=== PATIENT | male | born 1955 | race Caucasian/White ===

== ENCOUNTER 2021-03-30 01:09 | Inpatient (IN) ==
[2021-03-30] MEDS ORDERED: IBUPROFEN 600 MG TAB PO STA (01:21)
--- NOTE | 2021-03-30 01:21 | Emergency Department Note ---
Impression & Plan Closed hip fracture ADMIT ED Provider Note HPI: The patient is a 66-year-old male who presents the emergency department after mechanical fall. 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 States he fell directly on his right hip. Patient states he was able to get up and walk for several minutes afterwards but then developed worsening pain in his right hip and therefore contacted EMS for transport to the ED. on arrival to the ED the patient is alert and oriented, denies any head injuries, denies that he is on any blood thinners. He is limited range of motion at the right hip secondary to pain, denies any other focal complaint of pain. He is otherwise hemodynamically stable on arrival. ROS: -MSK: Right hip pain status post fall *10 point review systems was conducted and is otherwise negative unless stated above *Outpatient medications and allergy history reviewed PE: General: Alert, NAD HEENT: Normocephalic, atraumatic, trachea midline Eyes: Extraocular eye movement is intact, no scleral erythema Pulmonary: Clear to auscultation bilaterally, no wheezing Cardio: Regular rate and rhythm GI: Abdomen is soft, nontender : No suprapubic tenderness MSK: Limited range of motion at the right hip secondary to pain, there is a palpable dorsalis pedis pulse in the right lower extremity, range of motion is intact distally in the right foot Skin: No evidence of rash Neuro: Alert, baseline contracture of the right upper extremity, otherwise no focal deficits Psychiatric: Cooperative pvc monitor: - An order was placed for continuous cardiac monitoring - Patient was noted to be in sinus rhythm with rate of 75 EKG: Rate: 75 Rhythm: Normal sinus rhythm Intervals: Within normal limits ST changes: No ST elevation Time: 0204 Medical Decision Making: Patient presented to the emergency department after he fell this evening at work. X-ray imaging shows evidence of a right femoral neck fracture. Patient was given IV morphine and IV Zofran here in the ED for pain. He does not have any other focal complaint of pain. He did not hit his head. He is alert and oriented and otherwise at his baseline here in the ED. He remained hemodynamically stable. Lab work is largely unremarkable and shows a stable hemoglobin. I discussed the above findings with the patient he is in agreement for admission for orthopedic consultation and definitive care. Case was discussed with the on-call hospitalist for [facility], Dr. Durbin, and the patient was admitted in stable condition. Covid test is pending. * Diagnosis: Right hip fracture * Disposition: Admission Tenzin Knight DO Emergency Medicine Past Med/Surg History Social History Smoking Status: Never smoker Feels Safe at Home: Yes Allergies Allergies Allergy/AdvReac Type Severity Reaction Status Date / Time No Known Allergies Allergy Unknown Verified 11/15/15 08:45 Home Meds Home Medications Medication Instructions Recorded Confirmed Fish Oil ([place]-3) 1,000 mg PO TID #0 02/23/07 Sulfasalazine (Azulfidine) 1,000 mg PO TID #0 02/23/07 Multivitamin 1 tab PO QAM #0 04/22/07 LEVETIRACETAM (Keppra) 750 mg PO BID #0 tab 07/11/12 PHENOBARBITAL 2 tab PO TID #0 11/08/15 Primidone (Mysoline) 2 tab PO BID #0 tab 11/08/15 Results & Data (ED) Vital Signs Vital Signs - 24 hr 03/30/21 01:19 Temperature 37.3 C Temperature Source Oral Pulse Rate 75 Respiratory Rate 16 Respiratory Effort / Characteristics Non-Labored Spontaneous Respiratory Depth Normal Blood Pressure 164/70 H Blood Pressure Mean 101 Pulse Oximetry 98 Oxygen Delivery Method Room Air Sepsis Recent Fever Within 48 Hours No Sepsis New/Unexplained Change in Mental Status No Sepsis Action Taken by Nursing No Action Required Laboratory Data Result diagrams: 03/30/21 01:34 03/30/21 01:34 Lab Results 03/30/21 03/30/21 03/30/21 Range/Units 01:34 01:34 01:34 WBC 11.58 H (4.8-10.8) K/uL RBC 4.09 L (4.7-6.1) M/uL Hgb 12.7 L (14.0-18.0) g/dL Hct 38.8 L (42-52) % MCV 94.9 (80-100) fL MCH 31.1 (25-34) pg MCHC 32.7 (32-36) g/dL RDW Std Deviation 45.4 (36.4-46.3) fL RDW Coeff of Dimitri 13.1 (11.5-14.5) % Plt Count 238 (130-400) K/uL MPV 10.3 (7.4-10.4) fL Immature Gran % (Auto) 0.2 % Neut % (Auto) 86.1 % Lymph % (Auto) 7.3 % [place] % (Auto) 6.0 % Eos % (Auto) 0.2 % Baso % (Auto) 0.2 % Neut # (Auto) 9.97 H (1.4-6.5) K/uL Lymph # (Auto) 0.85 L (1.2-3.4) K/uL [place] # (Auto) 0.70 H (0.11-0.59) K/uL Eos # (Auto) 0.02 (0-0.5) K/uL Baso # (Auto) 0.02 (0-0.2) K/uL Immature Gran # (Auto) 0.02 (0.00-0.02) K/uL PT 11.4 (9.0-12.0) Seconds INR 1.1 (0.9-1.1) APTT 27.9 (21.0-31.0) Seconds PTT Ratio 1.1 Sodium 130 L (136-145) mmol/L Potassium 4.3 (3.5-5.1) mmol/L Chloride 98 (98-107) mmol/L Carbon Dioxide 28 (21-32) mmol/L Anion Gap 4.0 (3-11) BUN 16 (7-18) mg/dl Creatinine 1.04 (0.6-1.4) mg/dl Est Cr Clr Drug Dosing 66.7 ml/min Est GFR ( Amer) 85.7 ml/min Est GFR (Non-Af Amer) 73.9 ml/min BUN/Creatinine Ratio 15.6 (10-20) Glucose 92 (70-99) mg/dl Calcium 8.6 (8.5-10.1) mg/dl Total Bilirubin 0.4 (0.2-1) mg/dl AST 26 (15-37) U/L ALT 32 (12-78) Alkaline Phosphatase 98 (45-117) U/L Total Protein 7.7 (6.4-8.2) gm/dl Albumin 3.9 (3.4-5.0) gm/dl Globulin 3.8 (2.5-4.0) gm/dl Albumin/Globulin Ratio 1.0 (0.9-2) Administered Medications Discontinued Medications Ibuprofen (Ibuprofen 600 Mg Tab) 600 mg PO NOW STA Stop: 03/30/21 01:22 Last Admin: 03/30/21 01:28 Dose: 600 mg Documented by: [id number] Morphine Sulfate (Morphine Sulfate 4 Mg/Ml 1 Ml Carp\Vial) 4 mg IV NOW STA Stop: 03/30/21 01:35 Last Admin: 03/30/21 01:49 Dose: 4 mg Documented by: [id number] Ondansetron HCl (Ondansetron Inj 2 Mg/Ml 2 Ml Vial) 4 mg IV NOW STA Stop: 03/30/21 01:35 Last Admin: 03/30/21 01:49 Dose: 4 mg Documented by: [id number] Discharge Plan Visit Data Chief Complaint: Hip Pain Stated Complaint: FALL/RIGHT HIP ED Provider: Tenzin Knight Discharge Problem: Closed hip fracture Forms Stand Alone Forms: [facility] [employer] Prescriptions Prescriptions: No Action Fish Oil ([place]-3) 1 EA capsule 1,000 mg PO TID Qty: 0 RF: 0 Sulfasalazine (Azulfidine) 500 MG tablet 1,000 mg PO TID Qty: 0 RF: 0 Multivitamin tablet 1 tab PO QAM Qty: 0 RF: 0 LEVETIRACETAM (Keppra) 750 MG tablet 750 mg PO BID Qty: 0 RF: 0 PHENOBARBITAL 16.2 MG tablet 2 tab PO TID Qty: 0 RF: 0 Primidone (Mysoline) 250 MG tablet 2 tab PO BID Qty: 0 RF: 0 Referrals Referrals: Keyur Olivares MD [Primary Care Provider] - Discharge Problem: Closed hip fracture Qualifiers: Encounter type: initial encounter Laterality: right Qualified Code(s): S72.001A - Fracture of unspecified part of neck of right femur, initial encounter for closed fracture
[2021-03-30] MEDS ORDERED: MoRPHine SULFATE 4 MG/ML 1 ML CARP\\VIAL IV STA ×2 (01:34→02:53)
[2021-03-30] MEDS ORDERED: ONDANSETRON INJ 2 MG/ML 2 ML VIAL IV STA (01:34)
[2021-03-30 01:56] LABS: Basophils # (auto) 0.02 K/uL (0-0.2); Basophils % (auto) 0.2 %; Eosinophils # (auto) 0.02 K/uL (0-0.5); Eosinophils % (auto) 0.2 %; Hematocrit (blood only) 38.8 % (42-52); Hemoglobin 12.7 g/dL (14.0-18.0); Immature Granulocytes # (auto) 0.02 K/uL (0.00-0.02); Immature Granulocytes % (auto) 0.2 %; Lymphocytes # (auto) 0.85 K/uL (1.2-3.4); Lymphocytes % (auto) 7.3 %; Mean Corpuscular Hemoglobin 31.1 pg (25-34); Mean Corpuscular Hgb Conc 32.7 g/dL (32-36); Mean Corpuscular Volume 94.9 fL (80-100); Mean Platelet Volume 10.3 fL (7.4-10.4); Neutrophils # (auto) 9.97 K/uL (1.4-6.5); Neutrophils % (auto) 86.1 %; Platelet Count 238 K/uL (130-400); RDW Coefficient of Variation 13.1 % (11.5-14.5); RDW Standard Deviation 45.4 fL (36.4-46.3); Red Blood Count 4.09 M/uL (4.7-6.1); White Blood Count 11.58 K/uL (4.8-10.8)
[2021-03-30 02:13] LABS: Albumin Level 3.9 gm/dl (3.4-5.0); BUN Creatinine Ratio 15.6 (10-20); Calcium 8.6 mg/dl (8.5-10.1); Creatinine Clr Calc Pharmacy 66.7 ml/min; Est GFR (African American) 85.7 ml/min; Est GFR (Non-African American) 73.9 ml/min; Potassium 4.3 mmol/L (3.5-5.1)
[2021-03-30 02:15] LABS: Bilirubin,Total 0.4 mg/dl (0.2-1); Globulin 3.8 gm/dl (2.5-4.0); INR 1.1 (0.9-1.1); Partial Thromboplastin Ratio 1.1; Partial Thromboplastin Time 27.9 Seconds (21.0-31.0); Prothrombin Time 11.4 Seconds (9.0-12.0); Total Protein 7.7 gm/dl (6.4-8.2)
[2021-03-30 02:54] LABS: Magnesium 1.9 mg/dl (1.8-2.4)
[2021-03-30] MEDS ORDERED: cloNIDine HCL 0.1 MG TAB PO ONE (03:04)
--- NOTE | 2021-03-30 03:05 | History & Physical Report ---
Date of Service March 30, 2021 Assessment & Plan (1) Closed hip fracture: Plan: Traumatic right hip fracture secondary to secondary to fall Hypertensive urgency secondary to pain Hyponatremia Seizure disorder, stable on regimen for many years as per outpatient G MG Neurology documentation hx cerebral palsy Crohn's disease status post surgery, stable disease New onset anemia Medical telemetry Analgesia Clonidine as needed Orthopedics consult Re: Right hip fracture Revised Cardiac Risk Index (RCRI): 1. High-risk type of surgery (examples include vascular and any open intraperitoneal or intrathoracic procedures). No 2. History of ischemic heart disease (history of myocardial infarction or positive exercise test, current compliant of chest pain considered to be secondary to myocardial ischemia, use of nitrate therapy, or ECG with patho logical Q waves; do not count prior coronary revascularization procedure unless one of the other criteria for ischemic heart disease is present). No 3. History of heart failure. No 4. History of cerebrovascular disease. No 5. Diabetes mellitus requiring treatment with insulin. No 6. Preoperative serum creatinine >2.0. No Pt has revised cardiac index score of 0 points. (Class 1 Risk.) 3.9 % 30-day risk of , IA, or cardiac arrest Acceptable risk for cardiac complications resulting from prospective procedure if surgeryrecommended by Orthopedics and patient/family agreeable to attendant procedural benefits and risks. Careful correction of sodium, hyponatremia work-up Continue AED regimen Anemia work-up, transfuse PRBC if hemoglobin less than 7 and or for symptomatic anemia DVT prophylaxis. SCDs Re: Prospective procedure Full code Patient sister requesting updates from providers. Ms. Finn Herberth, contact #[phone]. Text document was generated using [employer] voice recognition software. It may contain grammatical or spelling errors. Kindly contact undersigned for clarification of any documentation item in question. History of Present Illness Chief Complaint: Fall, right hip pain Primary Care Provider: Keyur Olivares MD History obtained from patient, family, and records. Medical history significant for epilepsy, cerebral palsy, glaucoma, Crohn's disease status post surgery. 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 Patient fell down landing on his right hip. Able to get up and still walk for a little bit. Worsening achy right hip pain with ambulation. No head trauma, no chest pain, no S OB, no syncope/LOC. Patient brought to the ER for evaluation. 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/[employer] [employer] Baseline Functionality : Still able to do housework without rest/exertional chest pain, S OB prior to injury Allergies Allergy/AdvReac Type Severity Reaction Status Date / Time No Known Allergies Allergy Unknown Verified 03/30/21 02:30 Home Medications Medication Instructions Recorded Confirmed Type levetiracetam 750 mg tablet 750 mg PO BID 03/30/21 03/30/21 History multivitamin 1 tab PO DAILY 03/30/21 03/30/21 History omega-3 fatty acids 1,000 mg PO BID 03/30/21 03/30/21 History phenobarbital 16.2 mg tablet 32.4 mg PO TID 03/30/21 03/30/21 History primidone 250 mg tablet 500 mg PO BID 03/30/21 03/30/21 History sulfasalazine 500 mg 1,000 mg PO TID 03/30/21 03/30/21 History tablet,delayed release Past Med/Surg History Social History Smoking Status: Never smoker Second Hand Exposure: No; Do You Dip or Chew Tobacco: No; Tobacco Cessation Education Requested by Patient: No Hx Alcohol Use: Yes (STOPPED "A LONG TIME AGO") Hx Substance Use: No Preferred Language: Welsh Communication Ability: Effective Program Director Required: No Beliefs That Will Affect Care: None Current Living Situation: Alone Other Information That Helps Us Care for You: No Feels Safe at Home: Yes Safety Concerns: Feels Safe At This Time Assistive Devices: None Review of Systems Review of Systems: As per HPI, all 10 systems reviewed, all other ROS negative Physical Exam Physical Exam: GENERAL: Comfortable, pleasant, no respiratory distress SKIN: Normal color, warm HEENT: Alopecia, pink palpebral conjunctivae, no ptosis, dry buccal mucosa NECK : Supple, no tenderness CHEST : CTA, no tenderness HEART : RRR, no obvious murmurs ABDOMEN: Some distention, nontender EXTREMITIES : Chronic RUE spastic contracture, right hip tenderness, no other conspicuous deformities noted NEUROLOGIC : Coherent, no facial asymmetry, gait and stance not assessed Results & Data Results & Data ([place]) Vital Signs (Past 12 Hours) Vital Signs Temp Pulse Pulse Resp BP BP Pulse Ox 03/30/21 02:40 76 16 194/92 H 97 03/30/21 01:19 37.3 C 75 16 164/70 H 98 Laboratory Results Laboratory Results WBC 11.58 K/uL (4.8-10.8) H 03/30/21 01:34 RBC 4.09 M/uL (4.7-6.1) L 03/30/21 01:34 Hgb 12.7 g/dL (14.0-18.0) L 03/30/21 01:34 Hct 38.8 % (42-52) L 03/30/21 01:34 MCV 94.9 fL (80-100) 03/30/21 01:34 MCH 31.1 pg (25-34) 03/30/21 01:34 MCHC 32.7 g/dL (32-36) 03/30/21 01:34 RDW Std Deviation 45.4 fL (36.4-46.3) 03/30/21 01:34 RDW Coeff of Dimitri 13.1 % (11.5-14.5) 03/30/21 01:34 Plt Count 238 K/uL (130-400) 03/30/21 01:34 MPV 10.3 fL (7.4-10.4) 03/30/21 01:34 Immature Gran % (Auto) 0.2 % 03/30/21 01:34 Neut % (Auto) 86.1 % 03/30/21 01:34 Lymph % (Auto) 7.3 % 03/30/21 01:34 [place] % (Auto) 6.0 % 03/30/21 01:34 Eos % (Auto) 0.2 % 03/30/21 01:34 Baso % (Auto) 0.2 % 03/30/21 01:34 Neut # (Auto) 9.97 K/uL (1.4-6.5) H 03/30/21 01:34 Lymph # (Auto) 0.85 K/uL (1.2-3.4) L 03/30/21 01:34 [place] # (Auto) 0.70 K/uL (0.11-0.59) H 03/30/21 01:34 Eos # (Auto) 0.02 K/uL (0-0.5) 03/30/21 01:34 Baso # (Auto) 0.02 K/uL (0-0.2) 03/30/21 01:34 Immature Gran # (Auto) 0.02 K/uL (0.00-0.02) 03/30/21 01:34 PT 11.4 Seconds (9.0-12.0) 03/30/21 01:34 INR 1.1 (0.9-1.1) 03/30/21 01:34 APTT 27.9 Seconds (21.0-31.0) 03/30/21 01:34 PTT Ratio 1.1 03/30/21 01:34 Sodium 130 mmol/L (136-145) L 03/30/21 01:34 Potassium 4.3 mmol/L (3.5-5.1) 03/30/21 01:34 Chloride 98 mmol/L (98-107) 03/30/21 01:34 Carbon Dioxide 28 mmol/L (21-32) 03/30/21 01:34 Anion Gap 4.0 (3-11) 03/30/21 01:34 BUN 16 mg/dl (7-18) 03/30/21 01:34 Creatinine 1.04 mg/dl (0.6-1.4) 03/30/21 01:34 Est Cr Clr Drug Dosing 66.7 ml/min 03/30/21 01:34 Est GFR ( Amer) 85.7 ml/min 03/30/21 01:34 Est GFR (Non-Af Amer) 73.9 ml/min 03/30/21 01:34 BUN/Creatinine Ratio 15.6 (10-20) 03/30/21 01:34 Glucose 92 mg/dl (70-99) 03/30/21 01:34 Calcium 8.6 mg/dl (8.5-10.1) 03/30/21 01:34 Magnesium 1.9 mg/dl (1.8-2.4) 03/30/21 01:34 Total Bilirubin 0.4 mg/dl (0.2-1) 03/30/21 01:34 AST 26 U/L (15-37) 03/30/21 01:34 ALT 32 (12-78) 03/30/21 01:34 Alkaline Phosphatase 98 U/L (45-117) 03/30/21 01:34 Total Protein 7.7 gm/dl (6.4-8.2) 03/30/21 01:34 Albumin 3.9 gm/dl (3.4-5.0) 03/30/21 01:34 Globulin 3.8 gm/dl (2.5-4.0) 03/30/21 01:34 Albumin/Globulin Ratio 1.0 (0.9-2) 03/30/21 01:[address] initial read: There is a right femoral neck fracture with slight impaction and foreshortening. There is external rotation. Pelvis appears intact. Impression: Fracture of the right femoral neck Chest x-ray as per my interpretation atelectasis EKG as per my interpretation : Rate 70, NSR, normal axis, no ischemia (1) Closed hip fracture Encounter type: initial encounter Laterality: right Qualified Code(s): S72.001A - Fracture of unspecified part of neck of right femur, initial encounter for closed fracture
[2021-03-30] MEDS ORDERED: SODIUM CHLORIDE 0.9% 1000ML 1,000 ML IV ONE (03:11)
[2021-03-30 03:13] LABS: Thyroid Stimulating Hormone 3.04 uIu/ml (0.300-4.500)
[2021-03-30] MEDS ORDERED: ACETAMINOPHEN 325 MG TAB PO PRN (03:18)
[2021-03-30] MEDS ORDERED: oxyCODONE HCL IR 5 MG TAB (IMMEDIATE RELEASE) PO PRN (03:18)
[2021-03-30] MEDS ORDERED: PROMETHAZINE HCL 12.5 MG in SODIUM CHLORIDE 0.9% 50 ML IV PRN (03:18)
[2021-03-30 03:57] LABS: Hematocrit (blood only) 35.4 % (42-52); Hemoglobin 11.7 g/dL (14.0-18.0); Reticulocyte % 1.1 % (0.5-2.0); Reticulocytes # 0.04 10^6/uL (0.02-0.10)
[2021-03-30 04:19] LABS: Ferritin 101.5 ng/ml (8-388)
[2021-03-30] MEDS ORDERED: NALOXONE HCL 0.4 MG/1 ML VIAL/CARP IV PRN (04:45)
[2021-03-30 07:30] LABS: Appearance Urine Clear (Clear); Bacteria Urine Automated 2+ (Negative); Bilirubin Urine Negative (Negative); Blood Urine 2+ (Negative); Color Urine Dark Yellow; Epithelial Cell Urine Auto 0-5 /lpf (0-5); Glucose Urine UA Negative (Negative); Ketones Urine Negative (Negative); Leukocyte Esterase Urine 3+ (Negative); Nitrite Urine Positive (Negative); Protein Urine Negative (Negative); RBC Urine Automated 0-4 /hpf (0-4); Specific Gravity Urine 1.015 (1.000-1.030); Urobilinogen Urine Negative (Negative); WBC Urine Automated >30 /hpf (0-5); pH Urine 5.5 (4.5-7.5)
--- NOTE | 2021-03-30 09:07 | XRay Report ---
XR hip RT min 2V CLINICAL HISTORY: fall. Right hip pain. COMPARISON STUDY: None. FINDINGS: Impacted right femoral neck fracture. No dislocation. Soft tissues are unremarkable. IMPRESSION: Impacted right femoral neck fracture. ACT 112: Negative or not required by law. Electronically signed by: Sukumar Sierra M.D. 03/30/2021 9:05 AM
[2021-03-30] MEDS: levETIRAcetam 250 MG TAB PO SCH ×2 (09:10→21:29)
[2021-03-30] MEDS: MULTIVITAMIN TAB PO SCH (09:10)
[2021-03-30] MEDS: sulfaSALAzine 500 MG TABEC PO SCH ×3 (09:10→21:28)
[2021-03-30] MEDS: PRIMIDONE 250 MG TAB PO SCH ×2 (09:11→21:29)
[2021-03-30] MEDS: SODIUM CHLORIDE 0.9% 1000ML 1,000 ML IV SCH (09:11)
--- NOTE | 2021-03-30 09:11 | CT Scan Report ---
PELVIS CT CT DOSE: 606.90 mGy.cm HISTORY: Right hip pain. eval hip fx TECHNIQUE: Multiaxial CT images of the right hip were performed and reformatted in the sagittal and c oronal plane without the use of contrast. A dose lowering technique was utilized adhering to the bong nci[place]acho. COMPARISON: None. FINDINGS: There is a slightly impacted right femoral neck fracture demonstrating posterior angulation . No dislocation. The visualized pelvic bones and left hip are intact. Mild soft tissue edema at the iliopsoas muscle. There are small fat-containing bilateral inguinal hernias. Colonic diverticulosis. Moderate well-formed stool within the proximal colon. Mild bladder wall thickening. This may be chron ic from the enlarged prostate gland. Punctate focus of gas within the left side of the prostate gland . Gas within the bladder lumen. 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 IMPRESSION: 1. Acute right femoral neck fracture. No dislocation. 2. Bladder wall thickening. The small amount of gas within the bladder lumen. There is suggestion of a colovesical fistula at the mid sigmoid colon 3. A few punctate foci of gas along the left side of the prostate gland. This nonspecific and could b e due to infectious process. Recommend correlation with urinalysis. 4. These findings were called/faxed to emergency department following dictation. ACT 112: Negative or not required by law. Electronically signed by: Sukumar Sierra M.D. 03/30/2021 9:10 AM
[2021-03-30] MEDS: MoRPHine SULFATE 4 MG/ML 1 ML CARP\\VIAL IV PRN (09:15)
--- NOTE | 2021-03-30 10:12 | XRay Report ---
XR chest 1V portable CLINICAL HISTORY: Atypical chest pain. COMPARISON STUDY: No previous studies for comparison. FINDINGS: Lung volumes are normal. Lungs are clear. There is no pneumothorax or pleural effusion. Car diac size is normal. Mediastinal contours are normal. There is no evidence for pulmonary edema. Sever al old right rib fractures are incidentally noted. IMPRESSION: No acute cardiopulmonary findings. ACT 112: Negative or not required by law. Electronically signed by: Vaughn Olson M.D. 03/30/2021 10:11 AM
--- NOTE | 2021-03-30 11:41 | Orthopedic Consultation ---
Date of Consultation March 30, 2021 Assessment & Plan (1) Closed hip fracture: Patient seen by Dr. Garcia today and discussed surgery for right hip fracture, including risks and benefits of surgery. Will plan for surgery tomorrow a.m. and will keep patient NPO this evening. History of Present Illness Reason for Consultation: right hip fracture Attending Physician: Marcus Vazquez MD History of Present Illness 66 y/o white male presented to ED via ambulance after he sustained a fall while at work and landing on his hip. He notes pain under control at this time and no concerns Allergies Allergy/AdvReac Type Severity Reaction Status Date / Time No Known Allergies Allergy Unknown Verified 03/30/21 02:30 Home Medications Medication Instructions Recorded Confirmed Type levetiracetam 750 mg tablet 750 mg PO BID 03/30/21 03/30/21 History multivitamin 1 tab PO DAILY 03/30/21 03/30/21 History omega-3 fatty acids 1,000 mg PO BID 03/30/21 03/30/21 History phenobarbital 16.2 mg tablet 32.4 mg PO TID 03/30/21 03/30/21 History primidone 250 mg tablet 500 mg PO BID 03/30/21 03/30/21 History sulfasalazine 500 mg 1,000 mg PO TID 03/30/21 03/30/21 History tablet,delayed release Patient History Social History Smoking Status: Never smoker Second Hand Exposure: No; Do You Dip or Chew Tobacco: No; Tobacco Cessation Education Requested by Patient: No Hx Alcohol Use: Yes (STOPPED "A LONG TIME AGO") Hx Substance Use: No Preferred Language: Danish Communication Ability: Effective 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 NVI. Toes mobile. Pain with motion Results & Data ([facility]) Vital Signs (Past 12 Hours) Vital Signs Temp Pulse Pulse Resp BP BP BP 03/30/21 09:17 36.5 C 71 18 144/70 H 03/30/21 06:06 77 18 163/89 H 03/30/21 05:29 03/30/21 05:28 67 20 126/70 03/30/21 05:05 03/30/21 02:40 76 16 194/92 H 03/30/21 01:19 37.3 C 75 16 164/70 H Pulse Ox Pulse Ox 03/30/21 09:17 97 03/30/21 06:06 96 03/30/21 05:29 97 03/30/21 05:28 97 03/30/21 05:05 92 03/30/21 02:40 97 03/30/21 01:19 98 (1) Closed hip fracture Encounter type: initial encounter Laterality: right Qualified Code(s): S72.001A - Fracture of unspecified part of neck of right femur, initial encounter for closed fracture
--- NOTE | 2021-03-30 12:22 | Electrocardiogram Report ---
Test Reason : Blood Pressure : / mmHG Vent. Rate : 073 BPM Atrial Rate : 073 BPM P-R Int : 162 ms QRS Dur : 088 ms QT Int : 382 ms P-R-T Axes : 072 058 064 degrees QTc Int : 420 ms Normal sinus rhythm Normal ECG No previous ECGs available Confirmed by Jonathan Ruiz ([id number]) on 03/30/2021 12:22:30 PM Referred By: REFERRED SELF Confirmed By:Jonathan Ruiz
[2021-03-30] MEDS: cefTRIAXone SODIUM 1,000 MG in DEXTROSE 5% 50 ML IV SCH (13:17)
[2021-03-31] MEDS: SODIUM CHLORIDE 0.9% 1000ML 1,000 ML IV SCH ×3 (03:40→22:29)
--- NOTE | 2021-03-31 06:46 | Anesthesiology Consultation ---
Date of Service March 31, 2021 Assessment & Plan Chart Review Chart Review: Acceptable Risk for Surgery and Patient NOT seen in Pre Admission Testing Consults Requested none ASA ASA2 Proposed Anesthesia Anesthesia Type: General History Height/Weight Height: 5 ft 8 in Weight: 73.9 kg Allergies Allergy/AdvReac Type Severity Reaction Status Date / Time No Known Allergies Allergy Unknown Verified 03/30/21 02:30 Medications Home Medications Medication Instructions Recorded Confirmed Last Taken levetiracetam 750 mg tablet 750 mg PO BID 03/30/21 03/30/21 03/29/21 17:00 multivitamin 1 tab PO DAILY 03/30/21 03/30/21 Unknown omega-3 fatty acids 1,000 mg PO BID 03/30/21 03/30/21 Unknown phenobarbital 16.2 mg tablet 32.4 mg PO TID 03/30/21 03/30/21 03/29/21 17:00 primidone 250 mg tablet 500 mg PO BID 03/30/21 03/30/21 03/29/21 17:00 sulfasalazine 500 mg 1,000 mg PO TID 03/30/21 03/30/21 03/29/21 17:00 tablet,delayed release Active Medications Generic Name Dose Route Start Last Admin Trade Name Freq PRN Reason Stop Dose Admin Sodium Chloride 1,000 mls @ 50 mls/hr 03/30/21 08:00 03/31/21 03:40 Nss 1000ml IV 04/29/21 07:59 50 mls/hr .Q20H WEI Administration Ceftriaxone Sodium 1,000 mg/ 50 mls @ 100 mls/hr 03/30/21 12:00 03/30/21 14:13 Dextrose IV 04/04/21 11:59 Infused Q24H WEI Infusion Protocol Levetiracetam 750 mg 03/30/21 09:00 03/30/21 21:29 Levetiracetam 250 Mg Tab PO 04/29/21 08:59 750 mg BID WEI Administration Morphine Sulfate 4 mg 03/30/21 03:18 03/30/21 09:15 Morphine Sulfate 4 Mg/Ml 1 Ml Carp\\Vial IV 04/13/21 03:17 4 mg Q4H PRN Administration Pain Multivitamins 1 tab 03/30/21 09:00 03/30/21 09:10 Multivitamin Tab PO 04/29/21 08:59 1 tab QAM WEI Administration Oxycodone HCl 5 - 10 mg 03/30/21 03:18 03/30/21 21:28 Oxycodone Hcl Ir 5 Mg Tab (Immediate Release) PO 04/13/21 03:17 5 mg QID PRN Administration Pain Phenobarbital 32.4 mg 03/30/21 14:00 03/30/21 22:24 Phenobarbital 32.4 Mg Tab PO 04/29/21 13:59 32.4 mg TID WEI Administration Primidone 500 mg 03/30/21 09:00 03/30/21 21:29 Primidone 250 Mg Tab PO 04/29/21 08:59 500 mg BID WEI Administration Sulfasalazine 1,000 mg 03/30/21 09:00 03/30/21 21:28 Sulfasalazine 500 Mg Tabec PO 04/29/21 08:59 1,000 mg TID WEI Administration Exercise / Class Metabolic Activity III < 4 Walking/Shop/Light housework Past Anesthesia History No Hx of Anesthesia Complications and No Family Hx of Anesthesia Complications History of PONV No Hx of PONV and No Hx of Motion Sickness Social History Smoking Status: Never smoker Do You Dip or Chew Tobacco: No Hx Alcohol Use: Yes (STOPPED "A LONG TIME AGO") Hx Substance Use: No Physical Exam Vital Signs Last Vital Signs Temp 37.2 C 03/31/21 04:00 Pulse 68 03/31/21 05:07 Resp 18 03/31/21 04:00 BP 126/73 03/31/21 04:00 Pulse Ox 92 03/31/21 04:00 Testing Laboratory Results 03/30/21 03:45 03/30/21 03:45 PT 11.4 Seconds (9.0-12.0) 03/30/21 01:34 INR 1.1 (0.9-1.1) 03/30/21 01:34 APTT 27.9 Seconds (21.0-31.0) 03/30/21 01:34 Urine Color Dark Yellow 03/30/21 06:07 Urine Appearance Clear (Clear) 03/30/21 06:07 Urine pH 5.5 (4.5-7.5) 03/30/21 06:07 Ur Specific [place] 1.015 (1.000-1.030) 03/30/21 06:07 Urine Protein Negative (Negative) 03/30/21 06:07 Urine Glucose (UA) Negative (Negative) 03/30/21 06:07 Urine Ketones Negative (Negative) 03/30/21 06:07 Urine Nitrite Positive (Negative) A 03/30/21 06:07 Ur Leukocyte Esterase 3+ (Negative) H 03/30/21 06:07 Urine WBC (Auto) >30 /hpf (0-5) H 03/30/21 06:07 Urine RBC (Auto) 0-4 /hpf (0-4) 03/30/21 06:07 U Hyaline Cast (Auto) 1-5 /lpf (0-5) 03/30/21 06:07 U Epithel Cells (Auto) 0-5 /lpf (0-5) 03/30/21 06:07 Urine Bacteria (Auto) 2+ (Negative) H 03/30/21 06:07 Blood Type A Positive 03/30/21 03:45 Antibody Screen NEGATIVE 03/30/21 03:45 Electrocardiogram Date: 03/30/21 Findings: + NSR @ (at 73) Chest X-Ray Date: 03/30/21 Findings: + NAD
[2021-03-31] MEDS ORDERED: ONDANSETRON INJ 2 MG/ML 2 ML VIAL ONE ×2 (07:03→09:52)
[2021-03-31] MEDS ORDERED: fentaNYL citrate 100 MCG/2 ML VIAL ONE (07:03)
[2021-03-31] MEDS ORDERED: MIDAZOLAM HCL 1 MG/ML 2ML VIAL ONE (07:03)
[2021-03-31] MEDS ORDERED: LIDOCAINE 2% 2 ML VIAL/AMP(20MG/ML) INFIL ONE (07:03)
[2021-03-31] MEDS ORDERED: PROPOFOL IV EMULSION 10 MG/ML 20 ML VIAL IV ONE (07:03)
[2021-03-31] MEDS ORDERED: DEXAMETHASONE SOD INJ 4 MG/ML VIAL ONE (07:03)
[2021-03-31] MEDS ORDERED: GLYCOPYRROLATE 0.2 MG/ML VIAL ONE ×2 (07:03→09:52)
[2021-03-31] MEDS ORDERED: NEOSTIGMINE METHYLSULFATE 1 MG/ML 10ML VIAL ONE (07:03)
[2021-03-31] MEDS: levETIRAcetam 250 MG TAB PO SCH ×2 (07:16→20:08)
[2021-03-31] MEDS: sulfaSALAzine 500 MG TABEC PO SCH ×3 (07:21→20:09)
[2021-03-31] MEDS: PRIMIDONE 250 MG TAB PO SCH ×2 (07:21→20:08)
[2021-03-31] MEDS: MULTIVITAMIN TAB PO SCH (07:21)
[2021-03-31 07:38] LABS: Basophils # (auto) 0.02 K/uL (0-0.2); Basophils % (auto) 0.2 %; Eosinophils # (auto) 0.11 K/uL (0-0.5); Eosinophils % (auto) 1.2 %; Hematocrit (blood only) 40.7 % (42-52); Immature Granulocytes # (auto) 0.01 K/uL (0.00-0.02); Immature Granulocytes % (auto) 0.1 %; Lymphocytes # (auto) 0.82 K/uL (1.2-3.4); Lymphocytes % (auto) 8.7 %; Mean Corpuscular Hemoglobin 30.5 pg (25-34); Mean Corpuscular Hgb Conc 31.9 g/dL (32-36); Mean Corpuscular Volume 95.5 fL (80-100); Mean Platelet Volume 10.4 fL (7.4-10.4); Monocytes # (auto) 0.79 K/uL (0.11-0.59); Monocytes % (auto) 8.4 %; Neutrophils # (auto) 7.65 K/uL (1.4-6.5); Neutrophils % (auto) 81.4 %; Platelet Count 185 K/uL (130-400); RDW Coefficient of Variation 13.3 % (11.5-14.5); RDW Standard Deviation 46.2 fL (36.4-46.3); Red Blood Count 4.26 M/uL (4.7-6.1)
[2021-03-31] MEDS ORDERED: HYDROmorphone INJ 1 MG/ML SYRINGE IV PRN (07:49)
[2021-03-31] MEDS ORDERED: ONDANSETRON INJ 2 MG/ML 2 ML VIAL IV PRN ×2 (07:49→11:35)
[2021-03-31] MEDS ORDERED: FLUMAZENIL 0.1 MG/1 ML 10 ML VIAL IV PRN (07:49)
[2021-03-31] MEDS ORDERED: LABETALOL HCL IV 5 MG/ML 20ML IV PRN (07:49)
[2021-03-31] MEDS ORDERED: ePHEDrine sulfate 50 MG/ML AMP IV PRN (07:49)
[2021-03-31] MEDS ORDERED: fentaNYL citrate 100 MCG/2 ML VIAL IV PRN (07:49)
[2021-03-31] MEDS ORDERED: PROMETHAZINE HCL 12.5 MG in SODIUM CHLORIDE 0.9% 50 ML IV PRN (07:49)
[2021-03-31] MEDS ORDERED: NALOXONE HCL 0.4 MG/1 ML VIAL/CARP IV PRN ×2 (07:49→11:35)
[2021-03-31] MEDS ORDERED: ATROPINE SULFATE 0.1 MG/ML 10ML SYR IV PRN (07:49)
--- NOTE | 2021-03-31 07:51 | History & Physical Bridge Note ---
Date of Service March 31, 2021 History & Physical Bridge Note I have examined the patient, reviewed the History & Physical and in the interval since the performance of the History & Physical I have noted the following changes of clinical significance: no changes noted
[2021-03-31] MEDS ORDERED: ceFAZolin 2,000 MG/15 ML IV PUSH IV ONE (07:54)
[2021-03-31] MEDS ORDERED: Nursing to Pharmacy Communication SCH (08:00)
[2021-03-31] MEDS ORDERED: THROMBIN FOR SOLN 20000 UNIT KIT ONE (08:06)
[2021-03-31 08:21] LABS: BUN Creatinine Ratio 13.9 (10-20); Calcium 8.6 mg/dl (8.5-10.1); Creatinine Clr Calc Pharmacy 96.3 ml/min; Est GFR (African American) 111.9 ml/min; Est GFR (Non-African American) 96.5 ml/min; Potassium 4.3 mmol/L (3.5-5.1)
[2021-03-31] MEDS ORDERED: ROPIVACAINE 0.5% HCL/PF 150 MG, BUPIVACAINE 0.75% MPF 20 ML, EPINEPHrine 30MG/30ML (OR ... INFIL SCH (08:30)
[2021-03-31] MEDS ORDERED: ceFAZolin 2000MG 2,000 MG/15 ML SYR IV SCH (08:30)
[2021-03-31] MEDS ORDERED: LARYING-O-JET KIT (LTA) ONE (09:52)
[2021-03-31] MEDS ORDERED: ROCURONIUM BROMIDE 10 MG/ML 5 ML VIAL IV ONE (09:52)
--- NOTE | 2021-03-31 10:42 | Post Operative Brief Note ---
Immediate Post Op Note v1 Date of Surgery March 31, 2021 Pre & Post Diagnosis Operation Date: 03/31/21 08:00 Pre-Op Diagnosis: Impacted angulated and displaced right femoral neck fracture Post-Op Diagnosis: Impacted angulated and displaced right femoral neck fracture I identified the patient and participated in the time-out.: Yes Procedure Operation Date: 03/31/21 08:00 Actual Procedures p Right Bipolar Hip Prosthesis-Uncemented(Right) - Rachid Garcia DO Surgeon Rachid Garcia DO Site Worker Mariluz Corrigan PA-C Estimated Blood Loss 20 Findings Consistent with Post-Op Diagnosis Specimens Bone and tissue right hip Drains Segal Catheter Anesthesia Type General Regional Complications none Disposition Accompanied Patient To Recovery: No
[2021-03-31] MEDS ORDERED: METOCLOPRAMIDE HCL INJ 5 MG/ML 2 ML VIAL IV PRN (11:35)
[2021-03-31] MEDS ORDERED: MAGNESIUM HYDROXIDE SUSP 30 ML UDC PO PRN (11:35)
[2021-03-31] MEDS ORDERED: bisacodyL 10 MG SUPP PR PRN (11:35)
--- NOTE | 2021-03-31 11:35 | Operative Report (OR) ---
DATE OF PROCEDURE: 03/31/2021. PREOPERATIVE DIAGNOSIS: Right angulated displaced and impacted right femoral neck fracture. POSTOPERATIVE DIAGNOSIS: Right angulated displaced and impacted right femoral neck fracture. PROCEDURE: Right hip bipolar hemiarthroplasty [place] Accolade II, 132-degree neck angle stem, size 6, UHR bipolar 49 mm outer diameter, [place] V40 femoral head, 26 mm with a +4 mm neck. SURGEON: Rachid Garcia DO. RANGE AIDE: Mariluz Corrigan PA-C who was present for patient positioning, sterile prep and drape, management of retractors and instruments. She was present through the critical portions of the case including wound closure, application of sterile dressing and transport of the patient to recovery. ANESTHESIA: General, local. SPECIMENS: Bone and tissue, right hip. DRAINS: Hemovac x2. The patient also had a Segal catheter. COMPLICATIONS: None. BLOOD LOSS: 20 mL. PERTINENT HISTORY: This is a 66-year-old gentleman who sustained a mechanical fall on his right hip, difficulty ambulating. He was then transported to [facility] where he was evaluated and radiographed and noted to have an angulated impacted displaced right femoral neck fracture. He was admitted to the hospitalist service for medical optimization and then orthopedics was consulted. The patient was then scheduled for surgery as indicated. All potential risks, benefits, complications, alternatives, rehab potential for incomplete relief of symptoms, need for further surgery, DVT, PE, , persistent pain, swelling, scarring, weakness, neurovascular injury, wound complications, hardware failure, nonunion, malunion and bone fracture were discussed with the patient. The patient decided to proceed with the procedure as indicated. PROCEDURE: The patient was taken to the operative suite and placed supine on the Operating Room table. After review of the consent, identification of proper operative site, the patient was sedated. Spinal anesthetic was administered without difficulty. The patient was then placed in a left lateral decubitus position with the affected side up. Stulberg positioning pads were placed on the OR table. All bony prominences were properly padded and protected including use of an axillary roll. After the right hip was then sterilely prepped and draped in usual fashion, a 10 blade scalpel incision was made centered over the anterior one third of the greater trochanter. The incision was deepened to subcutaneous tissue. Meticulous hemostasis with electrocautery. Full thickness skin flaps were developed. Care was taken to cauterize any small punctate bleeders with a Bovie. Next, the iliotibial band was then incised along the skin incision, retracted both anteriorly and posteriorly using a Charnley retractor over moistened surgical towels. Next, abductor split was made over the neck and head of the femur down to the level of the trochanter and then this was carried around the greater trochanter and then down the shaft of the femur via the vastus lateralis. All soft tissues were then sharply elevated with electrocautery anteriorly including the gluteus medius, the gluteus barbara, the capsule and then the vastus lateralis. The fractured femoral neck was clearly identified and then a sagittal saw was used to resect the proximal neck cut without any difficulty approximately one fingerbreadth proximal to the lesser trochanter. Next, the femoral head was extracted from the acetabulum and measured to be approximately 49 mm in diameter. A 49 mm trial was placed with appropriate retractors around the acetabulum, noted to have excellent fit and stability. Then box osteotome and trial reamer placed in the proximal femur followed by sequential upbroaching until a size 6 was firmly placed. Next, the calcar reamer was utilized to smooth the proximal femur followed by placement of a +4 mm neck, 135 neck angle and a UHR bipolar 49 mm outer diameter trial. This was reduced and noted to have excellent stability and range of motion. Leg lengths were reapproximated to neutral and then all trial implants were then removed. Pulsatile lavage with 3 liters of the solution was used to lavaged the femur, acetabulum and then all soft tissues. Next, final implant of a size 6 [place] Accolade II taper femoral implant with a 132-degree neck angle with a standard offset was implanted without difficulty and a [place] V40 femoral head, 26 mm with a +4 mm neck, UHR bipolar 49 mm outer diameter bipolar head was then placed. The acetabulum was then suctioned, reduced. Excellent range of motion and recreation of leg length was achieved. Shuck test was nearly perfect. The leg lengths were restored. Excellent stability. Next, pulsatile lavage was used to cleanse the deep capsule and all soft tissues. Next a #5 FiberWire was placed through the greater trochanter and sutured through the anterior capsule, gluteus minimus and then into the gluteus medius and then sutured back to the greater trochanter with two deep Hemovac drains placed. Suture was then tied and cut followed by two [id number] sutures of #5 FiberWire in the proximal capsule. Next, the vastus lateralis was then closed using interrupted #1 Vicryl. The gluteus barbara was closed using #1 Vicryl. The iliotibial band was closed using #1 Vicryl. The wound was copiously irrigated with pulsatile lavage and then the dermis was closed using buried interrupted 2-0 Vicryl. Skin was closed using skin ning. A sterile compressive dressing was applied overwrapped with foam tape. The patient was then awakened and taken to recovery in stable condition with an abductor pillow. Job ID: [id number] [facility]
--- NOTE | 2021-03-31 11:47 | Anesthesiology Progress Note ---
Date of Service March 31, 2021 Anesthesia Post Procedure Vital Signs Vital Signs: Temp Pulse Pulse Pulse Resp BP BP 03/31/21 11:35 36.2 C L 76 21 03/31/21 11:25 83 15 03/31/21 11:15 75 18 03/31/21 11:05 83 16 03/31/21 10:57 36.7 C 91 H 17 03/31/21 09:09 82 03/31/21 07:14 37.0 C 78 19 03/31/21 05:07 68 03/31/21 04:00 37.2 C 80 18 126/73 03/30/21 21:00 67 18 03/30/21 17:00 53 L 18 03/30/21 14:00 59 L 16 144/77 H BP Pulse Ox Pulse Ox 03/31/21 11:35 107/57 L 97 03/31/21 11:25 98/58 L 95 03/31/21 11:15 111/59 L 97 03/31/21 11:05 105/62 98 03/31/21 10:57 115/63 96 03/31/21 09:09 03/31/21 07:14 145/78 H 93 03/31/21 05:07 03/31/21 04:00 92 03/30/21 21:00 125/73 93 92 03/30/21 17:00 125/73 92 03/30/21 14:00 96 Pain Intensity Right Hip: Pain Intensity: 7 Hip: Pain Intensity: 5 Transfer of Care Handoff Completed per policy Notes Mental Status: alert / awake / arousable Patient Amnestic to Procedure: Yes Nausea / Vomiting: adequately controlled Pain: adequately controlled Airway Patency, RR, SpO2: stable & adequate BP & HR: stable & adequate Hydration State: stable & adequate Anesthetic Complications: no major complications apparent
[2021-03-31] MEDS: cefTRIAXone SODIUM 1,000 MG in DEXTROSE 5% 50 ML IV SCH (12:26)
[2021-03-31] MEDS: DOCUSATE SODIUM 100 MG CAP PO SCH (20:07)
[2021-03-31] MEDS: SENNA 8.6 MG TAB PO SCH (20:09)
--- NOTE | 2021-03-31 23:45 | Communication Note ---
Date of Service: March 30, 2021 Patient was seen and examined for follow-up of her right hip pain. Lying in bed with no acute distress. Patient said that pain is controlled as long as he does not move his right lower extremity. Denies any chest pain, palpitation, dizziness, shortness of breath. CT abd/plevis showed acute right femoral neck fracture.A few punctate foci of gas along the left side of the prostate gland. This nonspecific and could be due to infectious process. UA showed positive nitrite, leukocyte and bacteria. Urine culture pending. Patient said before the fall he was able to walk a flight of stairs or one block with no shortness of breath or any chest discomfort. He has MET with a functional capacity able above 4. Currently denies any chest pain and SOB. Stable to proceed with the surgery. Case discussed with orthopedic team that plan to take him to the OR tomorrow. We will make n.p.o. after midnight. Continue pain control. We will start on Rocephin for the UTI will follow urine culture. Phenobarbital level 43. Is discussed with neurology (no official consult placed) recommended to resume phenobarbital. Continue seizure precaution. Continue monitor closely MD Taylor .
--- NOTE | 2021-03-31 23:52 | Hospitalist Progress Note ---
Date of Service March 31, 2021 Assessment & Plan (1) Closed hip fracture: Plan: Traumatic right hip fracture secondary to secondary to fall Hip Xray showed impacted right femoral neck fracture. CT abd/pelvis showed acute right femoral neck fracture. No dislocation. S/P Right Bipolar Hip Prosthesis-Uncemented performed by Dr. Garcia, on 03/31/21 No postop complication Continue pain management We will monitor H&H PT OT eval as per Ortho We will add incentive spirometry Hypertension BP fluctuated possible related to pain and hospital setting Consider to add on BP med if remains elevated Will try to control his pain UTI UA was positive for nitrite, leukocyte and bacteremia Urine culture positive for gram-negative bacilli Continue IV Rocephin day 2 We will follow-up urine sensitivity Hyponatremia Sodium on admission 130 received IV fluid Sodium 141 today Continue monitor BMP Hx Seizure disorder stable on regimen for many years as per outpatient [facility] Neurology documentation Phenobarbital level was 43 yesterday and 40 today Case discussed with neurology (no official consult placed ) recommend to continue phenobarbital Continue seizure precaution Hx cerebral palsy stable Crohn's disease status post surgery CT abd/pelvis showed bladder wall thickening. The small amount of gas within the bladder lumen. 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 SCDs due to to recent orthopedic procedure Full code Patient sister requesting updates from providers. Tate Huma Herberth, contact #[phone]. Admission and Anticipated Discharge Date Admission Date: March 30, 2021 Subjective Patient was seen and examined for follow-up of right hip fracture Lying in bed with no acute distress He had surgery done this morning Pain is controlled if he does not move much around Denies any chest pain, palpitation, dizziness, shortness of breath. Review of Systems Review of Systems: All systems reviewed & are unremarkable except as noted in Subjective Physical Exam Physical Exam: General- No acute distress Head- atraumatic Eyes- PERRL, EOMI, ENT- oropharynx clear Neck- supple, no JVD Lungs- clear to auscultation Heart- regular rhythm; no murmur Abdomen- normal bowel sounds, soft, nontender Extremities- no calf tenderness, right lower extremity tenderness Neuro- alert, oriented x 3; PERRL, EOMI; no facial palsy; no dysarthria Skin- warm & dry Results & Data Results & Data ([facility]) Vital Signs (Past 12 Hours) Vital Signs Temp Pulse Pulse Pulse Resp BP BP 03/31/21 22:20 76 03/31/21 19:40 36.6 C 75 18 108/62 03/31/21 15:41 73 03/31/21 15:14 36.7 C 76 18 111/69 03/31/21 14:05 36.7 C 68 17 101/62 03/31/21 13:05 36.8 C 76 18 95/53 L 03/31/21 12:05 36.8 C 93 H 18 101/64 Pulse Ox 03/31/21 22:20 03/31/21 19:40 94 03/31/21 15:41 03/31/21 15:14 94 03/31/21 14:05 97 03/31/21 13:05 95 03/31/21 12:05 93 (1) Closed hip fracture Encounter type: initial encounter Laterality: right Qualified Code(s): S72.001A - Fracture of unspecified part of neck of right femur, initial encounter for closed fracture
[2021-04-01] MEDS: MoRPHine SULFATE 4 MG/ML 1 ML CARP\\VIAL IV PRN ×2 (00:11→05:52)
[2021-04-01] MEDS: oxyCODONE HCL IR 5 MG TAB (IMMEDIATE RELEASE) PO PRN ×4 (01:47→22:53)
[2021-04-01] MEDS: PRIMIDONE 250 MG TAB PO SCH ×2 (07:27→20:03)
[2021-04-01] MEDS: sulfaSALAzine 500 MG TABEC PO SCH ×3 (07:27→20:04)
[2021-04-01] MEDS: MULTIVITAMIN TAB PO SCH (07:27)
[2021-04-01] MEDS: ASPIRIN 81 MG ECTAB PO SCH ×2 (07:27→20:01)
[2021-04-01] MEDS: levETIRAcetam 250 MG TAB PO SCH ×2 (07:28→20:02)
[2021-04-01] MEDS: DOCUSATE SODIUM 100 MG CAP PO SCH ×2 (07:28→20:02)
[2021-04-01] MEDS: ACETAMINOPHEN 325 MG TAB PO PRN (07:50)
[2021-04-01 09:49] LABS: Basophils # (auto) 0.02 K/uL (0-0.2); Basophils % (auto) 0.1 %; Eosinophils % (auto) 0.7 %; Hematocrit (blood only) 30.9 % (42-52); Hemoglobin 9.8 g/dL (14.0-18.0); Immature Granulocytes # (auto) 0.03 K/uL (0.00-0.02); Immature Granulocytes % (auto) 0.2 %; Lymphocytes # (auto) 1.42 K/uL (1.2-3.4); Lymphocytes % (auto) 10.4 %; Mean Corpuscular Hemoglobin 30.5 pg (25-34); Mean Corpuscular Hgb Conc 31.7 g/dL (32-36); Mean Corpuscular Volume 96.3 fL (80-100); Mean Platelet Volume 10.4 fL (7.4-10.4); Monocytes # (auto) 1.54 K/uL (0.11-0.59); Monocytes % (auto) 11.3 %; Neutrophils # (auto) 10.56 K/uL (1.4-6.5); Neutrophils % (auto) 77.3 %; Platelet Count 191 K/uL (130-400); RDW Coefficient of Variation 13.6 % (11.5-14.5); RDW Standard Deviation 47.8 fL (36.4-46.3); Red Blood Count 3.21 M/uL (4.7-6.1); White Blood Count 13.67 K/uL (4.8-10.8)
[2021-04-01 10:26] LABS: BUN Creatinine Ratio 12.7 (10-20); Calcium 7.3 mg/dl (8.5-10.1); Creatinine Clr Calc Pharmacy 65.4 ml/min; Est GFR (African American) 83.8 ml/min; Est GFR (Non-African American) 72.3 ml/min; Potassium 3.7 mmol/L (3.5-5.1)
[2021-04-01] MEDS: cefTRIAXone SODIUM 1,000 MG in DEXTROSE 5% 50 ML IV SCH (12:01)
--- NOTE | 2021-04-01 17:01 | Orthopedic Progress Note ---
Date of Service April 01, 2021 Assessment & Plan (1) Closed hip fracture: Plan: Postop day 1 status post right bipolar hemiarthroplasty. PT/OT protocols. Weightbearing as tolerated. DVT prophylaxis-aspirin p.o. twice daily, Hermes, MELE lee. Pain management as written. Plan for dressing change tomorrow. Admission and Anticipated Discharge Date Admission Date: March 30, 2021 Subjective Postop day 1 Patient sitting up in bed awake and alert. States he is having some pain off and on in the operative hip. States he was up to the chair today. Difficulty getting out of bed at this point. No other complaints. Physical Exam Physical Exam: Dressings are clean, dry, and intact. Thigh is soft and mildly swollen and is nontender. Calves are soft and nontender. Neurovascular is intact. Toes are mobile. He has good dorsiflexion plantarflexion of the right foot. Leg lengths appear equal. Results & Data ([facility]) Vital Signs (Past 12 Hours) Vital Signs Temp Pulse Resp BP BP Pulse Ox 04/01/21 15:09 37 C 87 17 99/65 L 91 04/01/21 10:58 36.6 C 83 18 99/63 L 93 04/01/21 09:53 37.3 C 04/01/21 07:19 38.3 C H 91 H 91/52 L 94 Laboratory Results Laboratory Results WBC 13.67 K/uL (4.8-10.8) H 04/01/21 09:04 RBC 3.21 M/uL (4.7-6.1) L 04/01/21 09:04 Hgb 9.8 g/dL (14.0-18.0) L D 04/01/21 09:04 Hct 30.9 % (42-52) L 04/01/21 09:04 MCV 96.3 fL (80-100) 04/01/21 09:04 MCH 30.5 pg (25-34) 04/01/21 09:04 MCHC 31.7 g/dL (32-36) L 04/01/21 09:04 RDW Std Deviation 47.8 fL (36.4-46.3) H 04/01/21 09:04 RDW Coeff of Dimitri 13.6 % (11.5-14.5) 04/01/21 09:04 Plt Count 191 K/uL (130-400) 04/01/21 09:04 MPV 10.4 fL (7.4-10.4) 04/01/21 09:04 Immature Gran % (Auto) 0.2 % 04/01/21 09:04 Neut % (Auto) 77.3 % 04/01/21 09:04 Lymph % (Auto) 10.4 % 04/01/21 09:04 [place] % (Auto) 11.3 % 04/01/21 09:04 Eos % (Auto) 0.7 % 04/01/21 09:04 Baso % (Auto) 0.1 % 04/01/21 09:04 Reticulocyte % (Auto) 1.1 % (0.5-2.0) 03/30/21 03:45 Neut # (Auto) 10.56 K/uL (1.4-6.5) H 04/01/21 09:04 Lymph # (Auto) 1.42 K/uL (1.2-3.4) 04/01/21 09:04 [place] # (Auto) 1.54 K/uL (0.11-0.59) H 04/01/21 09:04 Eos # (Auto) 0.10 K/uL (0-0.5) 04/01/21 09:04 Baso # (Auto) 0.02 K/uL (0-0.2) 04/01/21 09:04 Reticulocyte # 0.04 10^6/uL (0.02-0.10) 03/30/21 03:45 Immature Gran # (Auto) 0.03 K/uL (0.00-0.02) H 04/01/21 09:04 PT 11.4 Seconds (9.0-12.0) 03/30/21 01:34 INR 1.1 (0.9-1.1) 03/30/21 01:34 APTT 27.9 Seconds (21.0-31.0) 03/30/21 01:34 PTT Ratio 1.1 03/30/21 01:34 Sodium 135 mmol/L (136-145) L 04/01/21 09:04 Potassium 3.7 mmol/L (3.5-5.1) 04/01/21 09:04 Chloride 105 mmol/L (98-107) 04/01/21 09:04 Carbon Dioxide 26 mmol/L (21-32) 04/01/21 09:04 Anion Gap 4.0 (3-11) 04/01/21 09:04 BUN 13 mg/dl (7-18) 04/01/21 09:04 Creatinine 1.06 mg/dl (0.6-1.4) 04/01/21 09:04 Est Cr Clr Drug Dosing 65.4 ml/min 04/01/21 09:04 Est GFR ( Amer) 83.8 ml/min 04/01/21 09:04 Est GFR (Non-Af Amer) 72.3 ml/min 04/01/21 09:04 BUN/Creatinine Ratio 12.7 (10-20) 04/01/21 09:04 Glucose 167 mg/dl (70-99) H 04/01/21 09:04 Osmolality 275 mOsm/kg (280-300) L 03/30/21 03:09 Calcium 7.3 mg/dl (8.5-10.1) L D 04/01/21 09:04 Magnesium 1.9 mg/dl (1.8-2.4) 03/30/21 01:34 Iron 99 mcg/dl (35-175) 03/30/21 03:45 TIBC 233 mcg/dl (250-450) L 03/30/21 03:45 Transferrin 184 mg/dl (200-360) L 03/30/21 03:45 Ferritin 101.5 ng/ml (8-388) 03/30/21 03:45 Total Bilirubin 0.4 mg/dl (0.2-1) 03/30/21 01:34 AST 26 U/L (15-37) 03/30/21 01:34 ALT 32 (12-78) 03/30/21 01:34 Alkaline Phosphatase 98 U/L (45-117) 03/30/21 01:34 Total Protein 7.7 gm/dl (6.4-8.2) 03/30/21 01:34 Albumin 3.9 gm/dl (3.4-5.0) 03/30/21 01:34 Globulin 3.8 gm/dl (2.5-4.0) 03/30/21 01:34 Albumin/Globulin Ratio 1.0 (0.9-2) 03/30/21 01:34 Folate 10.20 ng/ml (>5.38) 03/30/21 03:45 TSH 3.040 uIu/ml (0.300-4.500) 03/30/21 01:34 Urine Color Dark Yellow 03/30/21 06:07 Urine Appearance Clear (Clear) 03/30/21 06:07 Urine pH 5.5 (4.5-7.5) 03/30/21 06:07 Ur Specific [place] 1.015 (1.000-1.030) 03/30/21 06:07 Urine Protein Negative (Negative) 03/30/21 06:07 Urine Glucose (UA) Negative (Negative) 03/30/21 06:07 Urine Ketones Negative (Negative) 03/30/21 06:07 Urine Blood 2+ (Negative) H 03/30/21 06:07 Urine Nitrite Positive (Negative) A 03/30/21 06:07 Urine Bilirubin Negative (Negative) 03/30/21 06:07 Urine Urobilinogen Negative (Negative) 03/30/21 06:07 Ur Leukocyte Esterase 3+ (Negative) H 03/30/21 06:07 Urine WBC (Auto) >30 /hpf (0-5) H 03/30/21 06:07 Urine RBC (Auto) 0-4 /hpf (0-4) 03/30/21 06:07 U Hyaline Cast (Auto) 1-5 /lpf (0-5) 03/30/21 06:07 U Epithel Cells (Auto) 0-5 /lpf (0-5) 03/30/21 06:07 Urine Bacteria (Auto) 2+ (Negative) H 03/30/21 06:07 Urine Osmolality 399 mOsm/kg (500-800) L 03/30/21 06:07 Ur Random Sodium 17 mmol/L 03/30/21 06:07 Phenobarbital 40.8 mcg/mL (15-40) H* 03/31/21 07:03 SARS-CoV-2, RNA, NAAT NEGATIVE (NEGATIVE) 03/30/21 03:15 Blood Type A Positive 03/30/21 03:45 Antibody Screen NEGATIVE 03/30/21 03:45 (1) Closed hip fracture Encounter type: initial encounter Laterality: right Qualified Code(s): S72.001A - Fracture of unspecified part of neck of right femur, initial encounter for closed fracture
[2021-04-01] MEDS: SENNA 8.6 MG TAB PO SCH (20:03)
--- NOTE | 2021-04-01 21:20 | Hospitalist Progress Note ---
Date of Service April 01, 2021 Assessment & Plan (1) Closed hip fracture: Plan: Traumatic right hip fracture secondary to secondary to fall Hip Xray showed impacted right femoral neck fracture. CT abd/pelvis showed acute right femoral neck fracture. No dislocation. S/P Right Bipolar Hip Prosthesis-Uncemented performed by Dr. Garcia, on 03/31/21 No postop complication Ortho recommended weightbearing as tolerated Continue PT/OT eval-recommended inpatient rehab Continue pain management Continue monitor H&H Continue incentive spirometry Fall precaution Plan to go to rehab Hypertension BP has been stable Continue monitor BP UTI UA was positive for nitrite, leukocyte and bacteremia Urine culture positive for gram-negative bacilli- Ecoli Continue IV Rocephin day 3 Consider transition to p.o. antibiotic Hyponatremia Sodium on admission 130 received IV fluid Sodium 135 today Continue monitor BMP Hx Seizure disorder stable on regimen for many years as per outpatient [facility] Neurology documentation Phenobarbital level was 43 yesterday and 40 today Case discussed with neurology (no official consult placed ) recommend to continue phenobarbital Continue seizure precaution Hx cerebral palsy stable Crohn's disease status post surgery CT abd/pelvis showed bladder wall thickening. The small amount of gas within the bladder lumen. 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 Starting on aspirin 81 mg twice daily as per Ortho Full code Disposition Waiting for placement Patient sister requesting updates from providers. Tate Huma Herberth, contact #[phone]. Admission and Anticipated Discharge Date Admission Date: March 30, 2021 Subjective Patient was seen and examined for postop follow-up Lying in bed with no acute distress Patient had therapy today but he did not do well He is interested to go to rehab to get better Denies any chest pain, palpitation, dizziness, shortness of breath. Review of Systems Review of Systems: All systems reviewed & are unremarkable except as noted in Subjective Physical Exam Physical Exam: General- No acute distress Head- atraumatic Eyes- PERRL, EOMI, ENT- oropharynx clear Neck- supple, no JVD Lungs- clear to auscultation Heart- regular rhythm; no murmur Abdomen- normal bowel sounds, soft, nontender Extremities- no calf tenderness, right lower extremity tenderness Neuro- alert, oriented x 3; PERRL, EOMI; no facial palsy; no dysarthria Skin- warm & dry Results & Data Results & Data ([facility]) Vital Signs (Past 12 Hours) Vital Signs Temp Pulse Resp BP Pulse Ox 04/01/21 19:51 97 04/01/21 19:29 37.4 C 90 18 107/66 88 L 04/01/21 15:09 37 C 87 17 99/65 L 91 04/01/21 10:58 36.6 C 83 18 99/63 L 93 04/01/21 09:53 37.3 C (1) Closed hip fracture Encounter type: initial encounter Laterality: right Qualified Code(s): S72.001A - Fracture of unspecified part of neck of right femur, initial encounter for closed fracture
[2021-04-02] MEDS: ACETAMINOPHEN 325 MG TAB PO PRN (01:56)
[2021-04-02 06:00] LABS: Hematocrit (blood only) 29.8 % (42-52); Hemoglobin 9.4 g/dL (14.0-18.0); Mean Corpuscular Hemoglobin 30.8 pg (25-34); Mean Corpuscular Hgb Conc 31.5 g/dL (32-36); Mean Corpuscular Volume 97.7 fL (80-100); Mean Platelet Volume 10.3 fL (7.4-10.4); Platelet Count 180 K/uL (130-400); RDW Standard Deviation 49.7 fL (36.4-46.3); Red Blood Count 3.05 M/uL (4.7-6.1); White Blood Count 11.43 K/uL (4.8-10.8)
[2021-04-02 06:38] LABS: BUN Creatinine Ratio 14.5 (10-20); Calcium 7.7 mg/dl (8.5-10.1); Creatinine Clr Calc Pharmacy 80.6 ml/min; Est GFR (Non-African American) 89.7 ml/min; Potassium 3.8 mmol/L (3.5-5.1)
[2021-04-02] MEDS: PRIMIDONE 250 MG TAB PO SCH ×2 (08:00→21:30)
[2021-04-02] MEDS: sulfaSALAzine 500 MG TABEC PO SCH ×3 (08:00→21:30)
[2021-04-02] MEDS: levETIRAcetam 250 MG TAB PO SCH ×2 (08:00→21:31)
[2021-04-02] MEDS: ASPIRIN 81 MG ECTAB PO SCH ×2 (08:00→21:32)
[2021-04-02] MEDS: MULTIVITAMIN TAB PO SCH (08:00)
[2021-04-02] MEDS: DOCUSATE SODIUM 100 MG CAP PO SCH ×2 (08:00→21:31)
--- NOTE | 2021-04-02 10:14 | Orthopedic Progress Note ---
Date of Service April 02, 2021 Assessment & Plan (1) Closed hip fracture: Plan: Postop day 2 status post right bipolar hemiarthroplasty. PT/OT protocols. Weightbearing as tolerated. DVT prophylaxis-aspirin p.o. twice daily, MELE Mirza. Pain management as written. Planning for Rehab Ortho will sign off at this time. Please call with any questions. Instructions placed in dc section. Admission and Anticipated Discharge Date Admission Date: March 30, 2021 Subjective POD 2 Pt sitting up in chair at bedside. Appears comfortable but states he's having some hip pain since getting OOB to chair. Discussed pain medication and that he will need to ask the nurses for pain medications etc. Pt seems to understand. No other complaints. Denies SOB, CP, LH. Physical Exam Physical Exam: Dressings C/D/I. Hemovac present. Thigh with swelling but soft. Calves soft, NT. NV intact. Toes mobile. Leg lengths appear equal. Results & Data ([facility]) Vital Signs (Past 12 Hours) Vital Signs Temp Pulse Pulse Resp BP Pulse Ox 04/02/21 08:29 37.1 C 81 20 123/71 92 04/02/21 07:27 86 04/02/21 03:20 37.7 C H 04/02/21 01:51 38.8 C H 101 H 18 116/64 94 04/01/21 22:39 37.4 C 93 H 18 109/56 L 90 04/01/21 22:19 93 H Laboratory Results Laboratory Results WBC 11.43 K/uL (4.8-10.8) H 04/02/21 05:43 RBC 3.05 M/uL (4.7-6.1) L 04/02/21 05:43 Hgb 9.4 g/dL (14.0-18.0) L 04/02/21 05:43 Hct 29.8 % (42-52) L 04/02/21 05:43 MCV 97.7 fL (80-100) 04/02/21 05:43 MCH 30.8 pg (25-34) 04/02/21 05:43 MCHC 31.5 g/dL (32-36) L 04/02/21 05:43 RDW Std Deviation 49.7 fL (36.4-46.3) H 04/02/21 05:43 RDW Coeff of Dimitri 14.0 % (11.5-14.5) 04/02/21 05:43 Plt Count 180 K/uL (130-400) 04/02/21 05:43 MPV 10.3 fL (7.4-10.4) 04/02/21 05:43 Immature Gran % (Auto) 0.2 % 04/01/21 09:04 Neut % (Auto) 77.3 % 04/01/21 09:04 Lymph % (Auto) 10.4 % 04/01/21 09:04 [place] % (Auto) 11.3 % 04/01/21 09:04 Eos % (Auto) 0.7 % 04/01/21 09:04 Baso % (Auto) 0.1 % 04/01/21 09:04 Reticulocyte % (Auto) 1.1 % (0.5-2.0) 03/30/21 03:45 Neut # (Auto) 10.56 K/uL (1.4-6.5) H 04/01/21 09:04 Lymph # (Auto) 1.42 K/uL (1.2-3.4) 04/01/21 09:04 [place] # (Auto) 1.54 K/uL (0.11-0.59) H 04/01/21 09:04 Eos # (Auto) 0.10 K/uL (0-0.5) 04/01/21 09:04 Baso # (Auto) 0.02 K/uL (0-0.2) 04/01/21 09:04 Reticulocyte # 0.04 10^6/uL (0.02-0.10) 03/30/21 03:45 Immature Gran # (Auto) 0.03 K/uL (0.00-0.02) H 04/01/21 09:04 PT 11.4 Seconds (9.0-12.0) 03/30/21 01:34 INR 1.1 (0.9-1.1) 03/30/21 01:34 APTT 27.9 Seconds (21.0-31.0) 03/30/21 01:34 PTT Ratio 1.1 03/30/21 01:34 Sodium 137 mmol/L (136-145) 04/02/21 05:43 Potassium 3.8 mmol/L (3.5-5.1) 04/02/21 05:43 Chloride 106 mmol/L (98-107) 04/02/21 05:43 Carbon Dioxide 29 mmol/L (21-32) 04/02/21 05:43 Anion Gap 2.0 (3-11) L 04/02/21 05:43 BUN 12 mg/dl (7-18) 04/02/21 05:43 Creatinine 0.86 mg/dl (0.6-1.4) 04/02/21 05:43 Est Cr Clr Drug Dosing 80.6 ml/min 04/02/21 05:43 Est GFR ( Amer) 104.0 ml/min 04/02/21 05:43 Est GFR (Non-Af Amer) 89.7 ml/min 04/02/21 05:43 BUN/Creatinine Ratio 14.5 (10-20) 04/02/21 05:43 Glucose 99 mg/dl (70-99) 04/02/21 05:43 Osmolality 275 mOsm/kg (280-300) L 03/30/21 03:09 Calcium 7.7 mg/dl (8.5-10.1) L 04/02/21 05:43 Magnesium 1.9 mg/dl (1.8-2.4) 03/30/21 01:34 Iron 99 mcg/dl (35-175) 03/30/21 03:45 TIBC 233 mcg/dl (250-450) L 03/30/21 03:45 Transferrin 184 mg/dl (200-360) L 03/30/21 03:45 Ferritin 101.5 ng/ml (8-388) 03/30/21 03:45 Total Bilirubin 0.4 mg/dl (0.2-1) 03/30/21 01:34 AST 26 U/L (15-37) 03/30/21 01:34 ALT 32 (12-78) 03/30/21 01:34 Alkaline Phosphatase 98 U/L (45-117) 03/30/21 01:34 Total Protein 7.7 gm/dl (6.4-8.2) 03/30/21 01:34 Albumin 3.9 gm/dl (3.4-5.0) 03/30/21 01:34 Globulin 3.8 gm/dl (2.5-4.0) 03/30/21 01:34 Albumin/Globulin Ratio 1.0 (0.9-2) 03/30/21 01:34 Folate 10.20 ng/ml (>5.38) 03/30/21 03:45 TSH 3.040 uIu/ml (0.300-4.500) 03/30/21 01:34 Urine Color Dark Yellow 03/30/21 06:07 Urine Appearance Clear (Clear) 03/30/21 06:07 Urine pH 5.5 (4.5-7.5) 03/30/21 06:07 Ur Specific [place] 1.015 (1.000-1.030) 03/30/21 06:07 Urine Protein Negative (Negative) 03/30/21 06:07 Urine Glucose (UA) Negative (Negative) 03/30/21 06:07 Urine Ketones Negative (Negative) 03/30/21 06:07 Urine Blood 2+ (Negative) H 03/30/21 06:07 Urine Nitrite Positive (Negative) A 03/30/21 06:07 Urine Bilirubin Negative (Negative) 03/30/21 06:07 Urine Urobilinogen Negative (Negative) 03/30/21 06:07 Ur Leukocyte Esterase 3+ (Negative) H 03/30/21 06:07 Urine WBC (Auto) >30 /hpf (0-5) H 03/30/21 06:07 Urine RBC (Auto) 0-4 /hpf (0-4) 03/30/21 06:07 U Hyaline Cast (Auto) 1-5 /lpf (0-5) 03/30/21 06:07 U Epithel Cells (Auto) 0-5 /lpf (0-5) 03/30/21 06:07 Urine Bacteria (Auto) 2+ (Negative) H 03/30/21 06:07 Urine Osmolality 399 mOsm/kg (500-800) L 03/30/21 06:07 Ur Random Sodium 17 mmol/L 03/30/21 06:07 Phenobarbital 40.8 mcg/mL (15-40) H* 03/31/21 07:03 SARS-CoV-2, RNA, NAAT NEGATIVE (NEGATIVE) 03/30/21 03:15 Blood Type A Positive 03/30/21 03:45 Antibody Screen NEGATIVE 03/30/21 03:45 (1) Closed hip fracture Encounter type: initial encounter Laterality: right Qualified Code(s): S72.001A - Fracture of unspecified part of neck of right femur, initial encounter for closed fracture
[2021-04-02] MEDS: oxyCODONE HCL IR 5 MG TAB (IMMEDIATE RELEASE) PO PRN ×3 (10:29→21:37)
[2021-04-02] MEDS: cefTRIAXone SODIUM 1,000 MG in DEXTROSE 5% 50 ML IV SCH (11:23)
--- NOTE | 2021-04-02 19:07 | Hospitalist Progress Note ---
Date of Service April 02, 2021 Assessment & Plan (1) Closed hip fracture: Plan: Traumatic right hip fracture secondary to secondary to fall Hip Xray showed impacted right femoral neck fracture. CT abd/pelvis showed acute right femoral neck fracture. No dislocation. S/P Right Bipolar Hip Prosthesis-Uncemented performed on 03/31/[address] Garcia No postop complication Ortho recommended weightbearing as tolerated Continue PT/OT eval-recommended inpatient rehab Continue pain management Hemoglobin stable at 9.4 Continue monitor H&H Continue incentive spirometry Fall precaution Plan to go to rehab Hypertension BP has been stable Continue monitor BP UTI UA was positive for nitrite, leukocyte and bacteremia Urine culture positive for gram-negative bacilli- Ecoli Continue IV Rocephin day 3 Consider transition to p.o. antibiotic Hyponatremia Sodium on admission 130 received IV fluid Sodium 137 today Resolved Hx Seizure disorder stable on regimen for many years as per outpatient [facility] documentation Phenobarbital level was 43 yesterday and 40 today Case discussed with neurology (no official consult placed ) recommend to continue phenobarbital Continue seizure precaution Hx cerebral palsy stable Crohn's disease status post surgery CT abd/pelvis showed bladder wall thickening. The small amount of gas within the bladder lumen. 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 Ms. Finn Herberth, contact #[phone]. Admission and Anticipated Discharge Date Admission Date: March 30, 2021 Subjective Patient was seen and examined for postop follow-up Lying in bed with no acute distress Patient said that he feels fine He said his pain is controlled Denies any chest pain, palpitation, dizziness, shortness of breath Review of Systems Review of Systems: All systems reviewed & are unremarkable except as noted in Subjective Physical Exam Physical Exam: General- No acute distress Head- atraumatic Eyes- PERRL, EOMI, ENT- oropharynx clear Neck- supple, no JVD Lungs- clear to auscultation Heart- regular rhythm; no murmur Abdomen- normal bowel sounds, soft, nontender Extremities- no calf tenderness, right lower extremity tenderness Neuro- alert, oriented x 3; PERRL, EOMI; no facial palsy; no dysarthria Skin- warm & dry Results & Data Results & Data ([facility]) Vital Signs (Past 12 Hours) Vital Signs Temp Pulse Pulse Resp BP BP Pulse Ox 04/02/21 15:46 36.5 C 81 20 121/70 96 04/02/21 15:26 91 H 04/02/21 11:43 36.7 C 90 20 114/69 90 04/02/21 08:29 37.1 C 81 20 123/71 92 04/02/21 07:27 86 (1) Closed hip fracture Encounter type: initial encounter Laterality: right Qualified Code(s): S72.001A - Fracture of unspecified part of neck of right femur, initial encounter for closed fracture
[2021-04-02] MEDS: SENNA 8.6 MG TAB PO SCH (21:30)
[2021-04-03] MEDS ORDERED: POTASSIUM CHLORIDE CRTAB 20 MEQ TABCR PO STA (02:10)
[2021-04-03] MEDS ORDERED: ACETAMINOPHEN 325 MG TAB PO STA (02:21)
[2021-04-03] MEDS ORDERED: POTASSIUM CHLORIDE 40 MEQ in SODIUM CHLORIDE 0.9% 1000ML 1,000 ML IV ONE (02:23)
[2021-04-03] MEDS ORDERED: MAGNESIUM SULFATE / D5W 1 GM/100 ML BAG IV ONE (02:30)
[2021-04-03 02:37] LABS: Basophils # (auto) 0.02 K/uL (0-0.2); Basophils % (auto) 0.2 %; Eosinophils # (auto) 0.09 K/uL (0-0.5); Eosinophils % (auto) 0.9 %; Hematocrit (blood only) 29.9 % (42-52); Hemoglobin 9.5 g/dL (14.0-18.0); Immature Granulocytes # (auto) 0.02 K/uL (0.00-0.02); Immature Granulocytes % (auto) 0.2 %; Lymphocytes # (auto) 1.32 K/uL (1.2-3.4); Lymphocytes % (auto) 13.4 %; Mean Corpuscular Hemoglobin 30.7 pg (25-34); Mean Corpuscular Hgb Conc 31.8 g/dL (32-36); Mean Corpuscular Volume 96.8 fL (80-100); Mean Platelet Volume 10.2 fL (7.4-10.4); Monocytes # (auto) 1.11 K/uL (0.11-0.59); Monocytes % (auto) 11.3 %; Neutrophils # (auto) 7.27 K/uL (1.4-6.5); Platelet Count 210 K/uL (130-400); RDW Standard Deviation 49.4 fL (36.4-46.3); Red Blood Count 3.09 M/uL (4.7-6.1); White Blood Count 9.83 K/uL (4.8-10.8)
[2021-04-03 03:04] LABS: BUN Creatinine Ratio 13.2 (10-20); Calcium 7.9 mg/dl (8.5-10.1); Creatinine Clr Calc Pharmacy 70.1 ml/min; Est GFR (Non-African American) 78.5 ml/min; Magnesium 2.3 mg/dl (1.8-2.4); Potassium 4.1 mmol/L (3.5-5.1)
[2021-04-03] MEDS: oxyCODONE HCL IR 5 MG TAB (IMMEDIATE RELEASE) PO PRN ×3 (04:36→13:30)
[2021-04-03] MEDS: ASPIRIN 81 MG ECTAB PO SCH (07:53)
[2021-04-03] MEDS: levETIRAcetam 250 MG TAB PO SCH (07:53)
[2021-04-03] MEDS: PRIMIDONE 250 MG TAB PO SCH (07:53)
[2021-04-03] MEDS: DOCUSATE SODIUM 100 MG CAP PO SCH (07:53)
[2021-04-03] MEDS: MULTIVITAMIN TAB PO SCH (07:54)
[2021-04-03] MEDS: sulfaSALAzine 500 MG TABEC PO SCH ×2 (07:54→13:28)
[2021-04-03] MEDS: cefTRIAXone SODIUM 1,000 MG in DEXTROSE 5% 50 ML IV SCH (12:49)
--- NOTE | 2021-04-03 13:02 | Hospitalist Progress Note ---
Date of Service April 03, 2021 Assessment & Plan (1) Closed hip fracture: Plan: Traumatic right hip fracture secondary to secondary to fall Hip Xray showed impacted right femoral neck fracture. CT abd/pelvis showed acute right femoral neck fracture. No dislocation. S/P Right Bipolar Hip Prosthesis-Uncemented performed on 03/31/[address] Garcia No postop complication Ortho recommended weightbearing as tolerated Continue PT/OT eval-recommended inpatient rehab Continue pain management Hemoglobin stable at 9.4 Continue monitor H&H Continue incentive spirometry Fall precaution Plan to go to rehab Hypertension BP has been stable Continue monitor BP UTI UA was positive for nitrite, leukocyte and bacteria Urine culture positive for gram-negative bacilli- Ecoli Continue IV Rocephin day 4 Consider transition to p.o. antibiotic Hyponatremia Sodium on admission 130 received IV fluid Sodium 137 today Resolved Hx Seizure disorder stable on regimen for many years as per outpatient [facility] Neurology documentation Phenobarbital level was 43 and 40 Case discussed with neurology (no official consult placed ) recommend to continue phenobarbital Continue seizure precaution Hx cerebral palsy stable Crohn's disease status post surgery CT abd/pelvis showed bladder wall thickening. The small amount of gas within the bladder lumen. 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 Huma Kevin, contact #[phone]. Admission and Anticipated Discharge Date Admission Date: March 30, 2021 Subjective Patient was seen and examined for postop follow-up (hip fx) Lying in bed in no acute distress Reports that he was working w/ physical therapy, now pain increased after movement Denies any chest pain, palpitation, dizziness, shortness of breath Review of Systems Review of Systems: All systems reviewed & are unremarkable except as noted in Subjective Physical Exam Physical Exam: General- No acute distress Head- atraumatic Eyes- PERRL, EOMI, ENT- oropharynx clear Neck- supple, no JVD Lungs- clear to auscultation Heart- regular rhythm; no murmur Abdomen- normal bowel sounds, soft, nontender Extremities- no calf tenderness, right lower extremity tenderness Neuro- alert, oriented x 3; PERRL, EOMI; no facial palsy; no dysarthria Skin- warm & dry Results & Data Results & Data ([facility]) Vital Signs (Past 12 Hours) Vital Signs Temp Pulse Pulse Resp BP BP Pulse Ox 04/03/21 11:04 36.9 C 82 18 112/68 91 04/03/21 08:04 95 04/03/21 07:06 84 04/03/21 07:02 37 C 84 18 104/62 92 04/03/21 02:20 91 04/03/21 02:15 38.1 C H 98 H 18 113/71 85 L Laboratory Results 04/03/21 04/03/21 Range/Units 02:18 02:18 WBC 9.83 (4.8-10.8) K/uL RBC 3.09 L (4.7-6.1) M/uL Hgb 9.5 L (14.0-18.0) g/dL Hct 29.9 L (42-52) % MCV 96.8 (80-100) fL MCH 30.7 (25-34) pg MCHC 31.8 L (32-36) g/dL RDW Std Deviation 49.4 H (36.4-46.3) fL RDW Coeff of Dimitri 14.0 (11.5-14.5) % Plt Count 210 (130-400) K/uL MPV 10.2 (7.4-10.4) fL Immature Gran % (Auto) 0.2 % Neut % (Auto) 74.0 % Lymph % (Auto) 13.4 % [place] % (Auto) 11.3 % Eos % (Auto) 0.9 % Baso % (Auto) 0.2 % Neut # (Auto) 7.27 H (1.4-6.5) K/uL Lymph # (Auto) 1.32 (1.2-3.4) K/uL [place] # (Auto) 1.11 H (0.11-0.59) K/uL Eos # (Auto) 0.09 (0-0.5) K/uL Baso # (Auto) 0.02 (0-0.2) K/uL Immature Gran # (Auto) 0.02 (0.00-0.02) K/uL Sodium 137 (136-145) mmol/L Potassium 4.1 (3.5-5.1) mmol/L Chloride 105 (98-107) mmol/L Carbon Dioxide 27 (21-32) mmol/L Anion Gap 5.0 (3-11) BUN 13 (7-18) mg/dl Creatinine 0.99 (0.6-1.4) mg/dl Est Cr Clr Drug Dosing 70.1 ml/min Est GFR ( Amer) 91.0 ml/min Est GFR (Non-Af Amer) 78.5 ml/min BUN/Creatinine Ratio 13.2 (10-20) Glucose 105 H (70-99) mg/dl Calcium 7.9 L (8.5-10.1) mg/dl Magnesium 2.3 (1.8-2.4) mg/dl Medications Administered Current Inpatient Medications Acetaminophen (Acetaminophen 325 Mg Tab) 650 mg PO Q4H PRN PRN Reason: Pain or Fever Stop: 04/29/21 04:44 Last Admin: 04/02/21 01:56 Dose: 650 mg Documented by: Aspirin (Aspirin 81 Mg Ectab) 81 mg PO BID [facility] Stop: 05/01/21 08:59 Last Admin: 04/03/21 07:53 Dose: 81 mg Documented by: Bisacodyl (Bisacodyl 10 Mg Supp) 10 mg CO DAILY PRN PRN Reason: Constipation Stop: 04/30/21 11:34 Docusate Sodium (Docusate Sodium 100 Mg Cap) 100 mg PO BID [facility] Stop: 04/30/21 20:59 Last Admin: 04/03/21 07:53 Dose: 100 mg Documented by: Promethazine HCl 12.5 mg/ (Sodium Chloride) 50.5 mls @ 202 mls/hr IV Q6H PRN PRN Reason: Nausea And Vomiting Stop: 04/29/21 03:17 Ceftriaxone Sodium 1,000 mg/ (Dextrose) 50 mls @ 100 mls/hr IV Q24H [facility]; Protocol Stop: 04/04/21 11:59 Last Admin: 04/03/21 12:49 Dose: 100 mls/hr Documented by: Levetiracetam (Levetiracetam 250 Mg Tab) 750 mg PO BID [facility] Stop: 04/29/21 08:59 Last Admin: 04/03/21 07:53 Dose: 750 mg Documented by: Magnesium Hydroxide (Magnesium Hydroxide Susp 30 Ml Udc) 30 ml PO Q6H PRN PRN Reason: Constipation Stop: 04/30/21 11:34 Metoclopramide HCl (Metoclopramide Hcl Inj 5 Mg/Ml 2 Ml Vial) 10 mg IV Q6H PRN PRN Reason: Nausea And Vomiting Stop: 04/30/21 11:34 Morphine Sulfate (Morphine Sulfate 4 Mg/Ml 1 Ml Carp\Vial) 4 mg IV Q4H PRN PRN Reason: Pain Stop: 04/13/21 03:17 Last Admin: 04/01/21 05:52 Dose: 4 mg Documented by: Multivitamins (Multivitamin Tab) 1 tab PO QAM WEI Stop: 05/01/21 08:59 Last Admin: 04/03/21 07:54 Dose: 1 tab Documented by: Naloxone HCl (Naloxone Hcl 0.4 Mg/1 Ml Vial/Carp) 0.1 mg IV Q5M PRN PRN Reason: Oversedation/Resp Depression Stop: 04/30/21 11:34 Ondansetron HCl (Ondansetron Inj 2 Mg/Ml 2 Ml Vial) 4 mg IV Q6H PRN PRN Reason: Nausea And Vomiting Stop: 04/30/21 11:34 Oxycodone HCl (Oxycodone Hcl Ir 5 Mg Tab (Immediate Release)) 5 - 10 mg PO Q4H PRN PRN Reason: Pain or Pre PT Stop: 04/14/21 11:34 Last Admin: 04/03/21 09:38 Dose: 10 mg Documented by: Phenobarbital (Phenobarbital 32.4 Mg Tab) 32.4 mg PO TID [facility] Stop: 04/29/21 13:59 Last Admin: 04/03/21 07:53 Dose: 32.4 mg Documented by: Primidone (Primidone 250 Mg Tab) 500 mg PO BID [facility] Stop: 04/29/21 08:59 Last Admin: 04/03/21 07:53 Dose: 500 mg Documented by: Sennosides (Senna 8.6 Mg Tab) 17.2 mg PO HS [facility] Stop: 04/30/21 20:59 Last Admin: 04/02/21 21:30 Dose: 17.2 mg Documented by: Sulfasalazine (Sulfasalazine 500 Mg Tabec) 1,000 mg PO TID [facility] Stop: 04/29/21 08:59 Last Admin: 04/03/21 07:54 Dose: 1,000 mg Documented by: (1) Closed hip fracture Encounter type: initial encounter Laterality: right Qualified Code(s): S72.001A - Fracture of unspecified part of neck of right femur, initial encounter for closed fracture
--- NOTE | 2021-04-03 15:20 | Discharge Summary ---
Date of Service April 03, 2021 Admission HPI Per Admitting Provider History obtained from patient, family, and records. Medical history significant for epilepsy, cerebral palsy, glaucoma, Crohn's disease status post surgery. 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 Patient fell down landing on his right hip. Able to get up and still walk for a little bit. Worsening achy right hip pain with ambulation. No head trauma, no chest pain, no S OB, no syncope/LOC. Patient brought to the ER for evaluation. 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/[employer] Baseline Functionality : Still able to do housework without rest/exertional chest pain, S OB prior to injury Admission Exam Per Admitting Provider GENERAL: Comfortable, pleasant, no respiratory distress SKIN: Normal color, warm HEENT: Alopecia, pink palpebral conjunctivae, no ptosis, dry buccal mucosa NECK : Supple, no tenderness CHEST : CTA, no tenderness HEART : RRR, no obvious murmurs ABDOMEN: Some distention, nontender EXTREMITIES : Chronic RUE spastic contracture, right hip tenderness, no other conspicuous deformities noted NEUROLOGIC : Coherent, no facial asymmetry, gait and stance not assessed Principal Diagnosis Closed hip fracture (Traumatic right hip fracture secondary to fall) UTI Hyponatremia Discharge Exam General- No acute distress Head- atraumatic Eyes- PERRL, EOMI, ENT- oropharynx clear Neck- supple, no JVD Lungs- clear to auscultation Heart- regular rhythm; no murmur Abdomen- normal bowel sounds, soft, nontender Extremities- no calf tenderness, right lower extremity tenderness Neuro- alert, oriented x 3; PERRL, EOMI; no facial palsy; no dysarthria Skin- warm & dry Discharge Data Allergies Allergy/AdvReac Type Severity Reaction Status Date / Time No Known Allergies Allergy Unknown Verified 03/30/21 02:30 Consultations 03/30/21 02:34 ED Decision to Admit Stat 03/30/21 04:45 Consult Orthopedic Surgery Routine Procedures Performed Operation Date: 03/31/21 08:00 Actual Procedures p Right Bipolar Hip Prosthesis-Uncemented(Right) - Rachid A Barter, DO Ordered Studies 03/30/21 [place] hip RT 2-3V Routine 03/30/21 01:34 CT pelvis wo con Urgent IMPRESSION: 1. Acute right femoral neck fracture. No dislocation. 2. Bladder wall thickening. The small amount of gas within the bladder lumen. There is suggestion of a colovesical fistula at the mid sigmoid colon 3. A few punctate foci of gas along the left side of the prostate gland. This nonspecific and could be due to infectious process. Recommend correlation with urinalysis. 4. These findings were called/faxed to emergency department following dictation. Hospital Course (1) Closed hip fracture: Traumatic right hip fracture secondary to secondary to fall Hip Xray showed impacted right femoral neck fracture. CT abd/pelvis showed acute right femoral neck fracture. No dislocation. S/P Right Bipolar Hip Prosthesis-Uncemented performed on 03/31/[address] Garcia No postop complication Ortho recommended weightbearing as tolerated Continue PT/OT eval-recommended inpatient rehab Continue pain management Hemoglobin stable at 9.5 Continue monitor H&H Continue incentive spirometry Fall precaution Plan to go to rehab Hypertension BP has been stable Continue monitor BP UTI UA was positive for nitrite, leukocyte and bacteria Urine culture positive for gram-negative bacilli- Ecoli Continue IV Rocephin day 4 Transition to p.o. antibiotic on discharge Recommend to remove Segal, and do a voiding trial Hyponatremia Sodium on admission 130 received IV fluid Sodium 137 today Resolved Hx Seizure disorder stable on regimen for many years as per outpatient [facility] Neurology documentation Phenobarbital level was 43 and 40 Case discussed with neurology (no official consult placed ) recommend to continue phenobarbital Continue seizure precaution Hx cerebral palsy stable Crohn's disease status post surgery CT abd/pelvis showed bladder wall thickening. The small amount of gas within the bladder lumen. There is suggestion of a colovesical fistula at the mid sigmoid colon stable disease DVT px On aspirin 81 mg twice daily (for next 3 weeks) as per Ortho Disposition: [facility] (rehab) Patient sister - Ms. Huma Kevin, contact #[phone]. Total Time Total Time Spent Total Time Spent (In Minutes): 45 Discharge Plan Discharge Items Patient Disposition: Transfer Inpatient Rehab Fac Reason For Visit: HTN URG, R HIP FX Discharge Diagnosis: Closed hip fracture (Traumatic right hip fracture secondary to fall) UTI Hyponatremia Activity: Per Instructions section Weightbearing: Right weightbearing Weightbearing Comment: as tolerated with walker Non-emergency contact: Surgeon Call non-emergency contact if: your pain is not controlled, your temperature is above 101.5, your wound has increased redness and your wound has increased drainage Follow-up/Referrals: Keyur Olivares MD [Primary Care Provider] - Diet: Heart Healthy Zoe Attending Provider Instructions: Read instructions below from your orthopedic surgeon, in detail. It is important you take aspirin twice a day, for next 3 weeks, to prevent blood clots. Finish antibiotic treatment with cefuroxime, for your urinary tract infection. Recommend to remove Segal catheter, and do a voiding trial. For pain you can take Tylenol, up to 3000 mg a day. For more severe pain, you can take oxycodone as prescribed. It is important that you take stool softeners, while taking opiate pain medications. Zoe Seater Grinder Provider Instructions: ACTIVITY RECOMMENDATIONS: SELF CARE INSTRUCTIONS AFTER TOTAL HIP REPLACEMENT Until the incision and soft tissues around your hip have healed, there is a possibility that the hip prosthesis could dislocate. A. Observe the following precautions to prevent dislocation: 1. Don't bend your hip greater than 90 degrees. 2. Avoid crossing your legs or ankles while standing or lying. 3. Sit with your feet placed 6 inches apart. 4. When sitting, keep your knees below your hips. Sit on a firm surface, avoid deep, soft chairs and couches. Use an elevated toilet seat in the bathroom. 5. Don't bend over at the waist. Use a long handled shoehorn and a sock aid to help you put on your shoes and socks. A vocational director can help you picker tender helper objects that are too high or too low to reach. 6. Keep car riding to a minimum for at least one month after surgery. B. Your balance may be shaky for a while. Use crutches or a walker until directed by your doctor. C. Use hand rails when walking on stairs. D. Wear low heeled shoes with non-slip soles. E. Be sure that your floors are free of things that could trip you - throw rugs, electrical cords, small objects. Avoid wet and waxed floors, especially with crutches and canes. F. Try to walk several times a day with rest periods between. G. Continue with all the exercises taught to you in the hospital. Again, make walking a part of your daily routine. SPECIAL CARE INSTRUCTIONS: VERY IMPORTANT TO READ AND REVIEW A. You may still be at risk for phlebitis and blood clots. 1. Wear surgical stockings (MELE hose) for 2 weeks after surgery to improve circulation and reduce swelling. 2. Take Aspirin 81mg twice daily for 4 weeks or as directed by your doctor. This is your blood thinner. 3. High risk patients may be prescribed a stronger blood thinner if necessary. 4. If you are on Coumadin normally, your family doctor/soil tester should monitor your blood work. Expect a phone call the day of or the day after bloodwork is drawn to adjust your dosage. B. You must take antibiotics before having dental work, bladder, bowel and other surgery. Your doctor will provide you with a permanent card to carry describing precautions. C. Call [facility] if you have a fever, redness or swelling around the incision, cloudy drainage from incision, or sudden increase in pain in your hip, not relieved by your regular pain medication. D. Please call the office at if you have any concerns or questions about your operation or recovery. * YOU MAY SHOWER, NO TUB BATHS UNTIL CLEARED BY YOUR DOCTOR. * WEAR MELE HOSE 20 HOURS PER DAY FOR 2 WEEKS. * YOU SHOULD USE A WALKER OR CRUTCHES FOR 2-4 WEEKS. THIS WILL HELP PREVENT STRAIN ON YOUR HIP MUSCLE AND ALLOW IT TO HEAL PROPERLY. YOU MAY WEAN TO A CANE TOLERATED. * MOST PATIENTS WILL HAVE HOME NURSING FOR THERAPY. IF YOU DECIDE TO DO OUTPATIENT PHYSICAL THERAPY, PLEASE SCHEDULE THIS 3 TIMES PER WEEK. * CHANGE DRESSING DAILY. * . FOLLOW UP VISIT: If appointment is not already scheduled: Please call [facility] to make a follow-up appointment for 2 weeks after your surgery at . Pending Studies at Discharge: No Stand-Alone Forms: [facility] Skilled Items Patient informed of condition?: Yes DNR: No Discharge Level of Care: Acute rehab Communicable Disease: No Discharge Prognosis: Stable Lines: None Urinary Catheter: Yes Medications and DC Order Prescriptions: New aspirin 81 mg Tablet,Delayed Release (Dr/Ec) 81 mg PO BID 21 Days Qty: 42 RF: 0 acetaminophen 325 mg Tablet 650 mg PO Q4H PRN (Reason: pain (scale score 1-3)) Qty: 30 RF: 0 oxycodone 5 mg Tablet 10 mg PO Q4H PRN (Reason: pain) Qty: 10 RF: 0 docusate sodium 100 mg Capsule 100 mg PO BID Qty: 14 RF: 0 cefuroxime axetil 250 mg tablet 250 mg PO BID 2 Days Qty: 4 RF: 0 Continued multivitamin Tablet 1 tab PO DAILY RF: 0 phenobarbital 16.2 mg tablet 32.4 mg PO TID RF: 0 sulfasalazine 500 mg tablet,delayed release (DR/EC) 1,000 mg PO TID RF: 0 primidone 250 mg tablet 500 mg PO BID RF: 0 levetiracetam 750 mg tablet 750 mg PO BID RF: 0 Fish Oil Capsule 1,000 mg PO BID RF: 0 Discharge Orders: Discharge Order (Routine); Ordered 04/03/21 Ordered By: Sloan Nettles Admission Data Admit Date/Time: 03/30/21 03:11 Attending Provider: Slaon Nettles Admit Provider: Antonio Horton Primary Care Provider: Keyur Olivares Other Providers: Antonio Horton ; Man Linton ; Rachid Garcia ; Juan Azevedo ; Maritza Castañeda Thomas J ; Mariluz Phillips ; Natanael Marte ; Amaury Pulliam ; Tenzin Kinsey Andrew J. ; Amaury Swenson ; Shamir Handy ; Andreas Olson ; Reilly Can ; Andre Thompson ; Mariluz Corrigan ; Musa Ochoa ; Levi Mayers ; Mariah Gardner ; Keyur Mathis ; Niya Quick ; Milind Hanson ; [facility] ; Angel Lau [facility] ; [place]
== END 2021-04-03 19:12 | DRG 522 ==
LOC: ED 01:09 → SUATTDRO 03:11 → EDINP 03:11 → 2N 04:44

== ENCOUNTER 2023-03-24 17:10 | Inpatient (IN) ==
--- NOTE | 2023-03-24 17:48 | ED Triage Note ---
Date of Service March 24, 2023 History of Present Illness This patient was briefly evaluated while in triage. An abbreviated physical exam was performed. This patient is a 68-year-old Male who presents to the ED with his brother for evaluation of an abnormal drainage through his penis since this past Thursday. The patient was referred to the emergency department by his PCP. Patient has a remote history of rectal fistula. He follows with Dr. Jensen for history of Crohn's disease. Patient denies any abdominal pain. The patient reports that when he urinates, he gets drainage from both the penis and rectum. Patient denies any pain. Patient lives alone. Physical Exam CONSTITUTIONAL: Healthy and well nourished. HEENT: No scleral icterus or conjunctival injection. Patient is pale in appearance. RESPIRATORY: Clear to auscultation bilaterally with no wheezing, crackles, rhonchi or stridor. CARDIOVASCULAR: Regular rate and rhythm with no murmurs, rubs or gallops. GASTROINTESTINAL: Bowel sounds present in all quadrants. Abdomen is soft and nontender to palpation. INTEGUMENTARY: No rash or other significant dermatologic conditions noted. HEMATOLOGIC: No ecchymosis or petechiae. PSYCHIATRIC: Positive affect. NEUROLOGIC: No focal neurologic deficits noted. Initial orders for labs and / or imaging were placed and patient was placed in the waiting area until a bed is available. Please see further documentation for the full ED course.
[2023-03-24 18:26] LABS: Basophils # (auto) 0.06 K/uL (0.00-0.20); Basophils % (auto) 0.4 %; Eosinophils # (auto) 0.01 K/uL (0.00-0.50); Eosinophils % (auto) 0.1 %; Hematocrit (blood only) 40.4 % (42.0-52.0); Hemoglobin 12.7 g/dl (14.0-18.0); Immature Granulocytes # (auto) 0.05 K/uL (0.01-0.20); Immature Granulocytes % (auto) 0.3 %; Lymphocytes # (auto) 0.93 K/uL (1.20-3.40); Lymphocytes % (auto) 6.1 %; Mean Corpuscular Hemoglobin 31.1 pg (25.0-34.0); Mean Corpuscular Hgb Conc 31.4 g/dL (32.0-36.0); Mean Corpuscular Volume 98.8 fL (80.0-100.0); Mean Platelet Volume 10.8 fL (9.4-12.4); Monocytes # (auto) 1.12 K/uL (0.11-0.59); Monocytes % (auto) 7.4 %; Neutrophils # (auto) 12.96 K/uL (1.40-6.50); Neutrophils % (auto) 85.7 %; Platelet Count 254 K/uL (130-400); RDW Coefficient of Variation 13.5 % (11.5-14.5); RDW Standard Deviation 49.1 fL (36.4-46.3); Red Blood Count 4.09 M/uL (4.70-6.10); White Blood Count 15.13 K/ul (4.8-10.8)
[2023-03-24 18:43] LABS: Albumin Level 4.1 gm/dl (3.4-5.0); BUN Creatinine Ratio 21.4 (10-20); Bilirubin,Total 0.5 mg/dl (0.2-1.0); Calcium 9.1 mg/dl (8.6-10.3); Creatinine Clr Calc Pharmacy 66.5 ml/min; Est GFR (African American) 90.8 ml/min; Est GFR (Non-African American) 78.4 ml/min; Globulin 4.1 gm/dl (2.5-4.0); Potassium 3.7 mmol/L (3.5-5.1); Total Protein 8.2 gm/dl (6.0-8.3)
[2023-03-24] MEDS ORDERED: OPTIRAY 320 500ml IV ONE (20:03)
--- NOTE | 2023-03-24 20:29 | CT Scan Report ---
Exam(s): CT ABDOMEN + PELVIS With Contrast IV Amt: 93 ml opti 320 EXAM: CT Abdomen and Pelvis With Intravenous Contrast CLINICAL HISTORY: Reason for exam: h/o rectal fistula, passing stool thru penis/anus. TECHNIQUE: Axial computed tomography images of the abdomen and pelvis with intravenous contrast. CTDI is 25.6 mGy and DLP is 1210.61 mGy-cm. Automated exposure control was utilized for the study. A dose lowering technique was utilized adhering to the principles of ALARA. CONTRAST: Patient received 93 ml opti 320 of IV contrast COMPARISON: No relevant prior studies available. FINDINGS: Lung bases: Unremarkable. No mass. No consolidation. ABDOMEN: Liver: Unremarkable. No focal hepatic lesion. Gallbladder and bile ducts: Unremarkable. No calcified stones. No ductal dilation. Normal gallbladder. Pancreas: Unremarkable. No mass. No ductal dilation. Spleen: Unremarkable. No splenomegaly. Adrenals: Unremarkable. No mass. Kidneys and ureters: No hydronephrosis or delayed nephrogram. LEFT lower pole renal cyst measures 9 mm. Stomach and bowel: Unremarkable. No acute diverticulitis. No small bowel obstruction. No free air. PELVIS: Appendix: No findings to suggest acute appendicitis. Bladder: Severe wall thickening of the urinary bladder with multiple locules of air, consistent with severe UTI/emphysematous cystitis. Urology evaluation should be considered. Reproductive: Cystic changes and calcifications of the prostate gland, correlate with surgical history. The prostate gland is enlarged measuring 5.2 cm. ABDOMEN and PELVIS: Intraperitoneal space: See above. Bones/joints: RIGHT hip arthroplasty. Old fracture deformity of the LEFT iliac bone. No dislocation. Soft tissues: Fat-containing RIGHT inguinal hernia. Vasculature: Unremarkable. No abdominal aortic aneurysm. Lymph nodes: Unremarkable. No enlarged lymph nodes. IMPRESSION: Severe wall thickening of the urinary bladder with multiple locules of air, consistent with severe UTI/emphysematous cystitis. Urology evaluation should be considered. No perirectal or perianal abscess. Cystic changes and calcifications of the prostate gland, correlate with surgical history. The prostate gland is enlarged measuring 5.2 cm. Electronically signed by: Karlo Nuñez MD 03/24/23 20:27 PM
[2023-03-24] MEDS ORDERED: SODIUM CHLORIDE 0.9% 1,000 ML IV ONE (20:57)
[2023-03-24] MEDS ORDERED: cefTRIAXone SODIUM 2,000 MG/50 ML BAG IV STA (20:57)
--- NOTE | 2023-03-24 21:02 | Emergency Department Note ---
Impression & Plan Emphysematous cystitis, Leukocytosis ED Provider Note HISTORY OF PRESENT ILLNESS: Patient is a 68-year-old male presenting with abnormal urine. Patient states that he gave a urine sample to his primary care provider and was told that there was evidence of stool in his urine. They were referred to the ER for further assessment. Patient states that he has noticed stool coming out of his urethra "for a long time." He states that he also "has water come out of his rectum and I think it is urine." He denies any abdominal pain. He states that it hurts when he urinates. Denies any chest pain or shortness of breath. Denies any nausea or vomiting ROS: as above PHYSICAL EXAM: Constitutional: Patient appears in no acute distress. HENT: Head: Normocephalic and atraumatic. Eyes: EOMI, PERRL Mouth/Throat: Mucous membranes moist. Neck: Trachea midline. Neck supple. Cardiovascular: RRR, No murmurs, rubs or gallops. Intact distal pulses. Pulmonary/Chest: No respiratory distress. Breath sounds clear and equal bilaterally. No wheezes or rales. Abdominal: Abdomen soft, no tenderness, rebound or guarding. Musculoskeletal: No edema, tenderness or deformity noted. Skin: Warm and dry. No rash, erythema, pallor or cyanosis Psychiatric: Appropriate mood and affect for situation. Neurological: Alert and keenly responsive. CN II-XII grossly intact, moving all extremities equally and fully. MDM: - Vitals signs showed hypertension - History obtained via patient. Patient presents with abnormal urine. Patient states that he has been peeing stool from his urethra for a few weeks. Had a urine sample at his primary care provider's office that showed stool he was referred to the ER due to concern for potential fistula given his Crohn's disease. Patient denies any abdominal pain, fevers, nausea or vomiting - Chronic conditions affecting care: epilepsy, cerebral palsy, glaucoma, Crohn's disease status post surgery - Differential diagnoses include, but are not limited to: Fistula; UTI; sepsis; electrolyte abnormality - Order placed for continuous cardiac monitoring. At this time, monitor showed rate of 90 bpm with normal sinus rhythm, per my interpretation. - External medical records reviewed. Discharge summary dated 04/03/2021 was reviewed. Patient had been admitted for right hip fracture. - Laboratory workup interpreted by myself showed leukocytosis (WBC 15.13) with left shift; stable electrolytes; normal creatinine; normal lipase; normal procalcitonin - CT abdomen/pelvis with IV contrast showed severe wall thickening of the urinary bladder with multiple locules of air consistent with a severe UTI/emphysematous cystitis. No evidence of perirectal or perineal abscess. No evidence of fistula - Segal catheter ordered. - IV zosyn ordered for antibiotics. - Discussed case with HANNAH on for urology. Plan to see patient and recommend admission to medicine. - Discussion was had with career placement services counselor about patient's case and need for admission - Hospitalist consulted for admission - Patient admitted to [facility] service for further evaluation and management. ASSESSMENT AND PLAN: Diagnosis: Emphysematous cystitis; leukocytosis Plan: Admit Past Med/Surg History Medical History Closed hip fracture Surgical History History of right hip replacement Social History Smoking Status: Never smoker Second Hand Exposure: No; Do You Dip or Chew Tobacco: No; Hx Alcohol Use: Yes (STOPPED "A LONG TIME AGO") Hx Substance Use: No Preferred Language: Singaporean Communication Ability: Effective Anthropologist Physical Required: No Beliefs That Will Affect Care: None Current Living Situation: Alone Feels Safe at Home: Yes Assistive Devices: Walker Allergies Allergies Allergy/AdvReac Type Severity Reaction Status Date / Time No Known Allergies Allergy Unknown Verified 03/24/23 21:25 Home Meds Home Medications Medication Instructions Recorded Confirmed levetiracetam 750 mg tablet 750 mg PO BID 03/30/21 03/24/23 primidone 250 mg tablet 250 mg PO BID 03/30/21 03/24/23 sulfasalazine 500 mg 1,000 mg PO TID 03/30/21 03/24/23 tablet,delayed release omega 4-dyj-uwq-fish oil 1,000 mg 1 cap PO BID 03/24/23 03/24/23 (120 mg-180 mg) capsule (Fish Oil) phenobarbital 30 mg tablet 30 mg PO BID 03/24/23 03/24/23 vitamin E 670 mg (1,000 unit) 670 mg PO DAILY 03/24/23 03/24/23 capsule Results & Data (ED) Vital Signs Vital Signs - 24 hr 03/24/23 17:45 03/24/23 21:41 03/24/23 21:42 Temperature 36.8 C Temperature Source Temporal Artery Scan Pulse Rate 108 H 93 H Pulse Rate [Apical] 89 Respiratory Rate 18 20 Respiratory Effort / Characteristics Non-Labored Spontaneous Respiratory Depth Normal Respiratory Pattern Regular Blood Pressure 142/73 H Blood Pressure [Right Arm] 141/82 H Blood Pressure Mean 96 Blood Pressure Mean [Right Arm] 101 Blood Pressure Position Sitting Pulse Oximetry 94 93 Oxygen Delivery Method Room Air Room Air Sepsis Recent Fever Within 48 Hours No Sepsis New/Unexplained Change in Mental Status N/A Sepsis Action Taken by Nursing No Action Required Laboratory Data 03/24/23 18:01 03/24/23 18:01 Lab Results 03/24/23 Range/Units 18:01 WBC 15.13 H (4.8-10.8) K/ul RBC 4.09 L (4.70-6.10) M/uL Hgb 12.7 L (14.0-18.0) g/dl Hct 40.4 L (42.0-52.0) % MCV 98.8 (80.0-100.0) fL MCH 31.1 (25.0-34.0) pg MCHC 31.4 L (32.0-36.0) g/dL RDW Std Deviation 49.1 H (36.4-46.3) fL RDW Coeff of Dimitri 13.5 (11.5-14.5) % Plt Count 254 (130-400) K/uL MPV 10.8 (9.4-12.4) fL Immature Gran % (Auto) 0.3 % Neut % (Auto) 85.7 % Lymph % (Auto) 6.1 % [place] % (Auto) 7.4 % Eos % (Auto) 0.1 % Baso % (Auto) 0.4 % Neut # (Auto) 12.96 H (1.40-6.50) K/uL Lymph # (Auto) 0.93 L (1.20-3.40) K/uL [place] # (Auto) 1.12 H (0.11-0.59) K/uL Eos # (Auto) 0.01 (0.00-0.50) K/uL Baso # (Auto) 0.06 (0.00-0.20) K/uL Immature Gran # (Auto) 0.05 (0.01-0.20) K/uL Sodium 141 (136-145) mmol/L Potassium 3.7 (3.5-5.1) mmol/L Chloride 105 (98-107) mmol/L Carbon Dioxide 27 (21-32) mmol/L Anion Gap 9 (3-11) BUN 21 (6-23) mg/dl Creatinine 0.98 (0.6-1.4) mg/dl Est Cr Clr Drug Dosing 66.5 ml/min Est GFR ( Amer) 90.8 ml/min Est GFR (Non-Af Amer) 78.4 ml/min BUN/Creatinine Ratio 21.4 H (10-20) Glucose 98 (70-99(Fasting)) mg/dl Calcium 9.1 (8.6-10.3) mg/dl Total Bilirubin 0.5 (0.2-1.0) mg/dl AST 23 (13-39) U/L ALT 21 (7-52) U/L Alkaline Phosphatase 100 (34-104) U/L Total Protein 8.2 (6.0-8.3) gm/dl Albumin 4.1 (3.4-5.0) gm/dl Globulin 4.1 H (2.5-4.0) gm/dl Albumin/Globulin Ratio 1.0 (0.9-2) Lipase 11 (11-82) U/L Procalcitonin 0.12 (0-0.5) ng/ml Administered Medications Discontinued Medications Sodium Chloride (Nss) 1,000 mls @ 999 mls/hr IV .Q1H1M ONE Stop: 03/24/23 21:57 Last Admin: 03/24/23 21:46 Dose: 999 mls/hr Documented By: EMMA Ceftriaxone Sodium (Rocephin) 2,000 mg in 50 mls @ 100 mls/hr IV NOW STA Stop: 03/24/23 21:26 Last Admin: 03/24/23 21:31 Dose: Not Given Documented By: EMMA Piperacillin Sod/Tazobactam Sod (Zosyn) 4.5 gm in 100 mls @ 200 mls/hr IV NOW ONE Stop: 03/24/23 21:32 Last Admin: 03/24/23 21:46 Dose: 200 mls/hr Documented By: EMMA Ioversol (Optiray 320 500ml) 93 ml IV ONCE ONE Stop: 03/24/23 20:04 Last Admin: 03/24/23 20:03 Dose: 93 ml Documented By: CAROL Imaging Data Radiologist's Impression: Abdomen/Pelvis CT 03/24/23 17:53 Exam(s): CT ABDOMEN + PELVIS With Contrast IV Amt: 93 ml opti 320 EXAM: CT Abdomen and Pelvis With Intravenous Contrast CLINICAL HISTORY: Reason for exam: h/o rectal fistula, passing stool thru penis/anus. TECHNIQUE: Axial computed tomography images of the abdomen and pelvis with intravenous contrast. CTDI is 25.6 mGy and DLP is 1210.61 mGy-cm. Automated exposure control was utilized for the study. A dose lowering technique was utilized adhering to the principles of ALARA. CONTRAST: Patient received 93 ml opti 320 of IV contrast COMPARISON: No relevant prior studies available. FINDINGS: Lung bases: Unremarkable. No mass. No consolidation. ABDOMEN: Liver: Unremarkable. No focal hepatic lesion. Gallbladder and bile ducts: Unremarkable. No calcified stones. No ductal dilation. Normal gallbladder. Pancreas: Unremarkable. No mass. No ductal dilation. Spleen: Unremarkable. No splenomegaly. Adrenals: Unremarkable. No mass. Kidneys and ureters: No hydronephrosis or delayed nephrogram. LEFT lower pole renal cyst measures 9 mm. Stomach and bowel: Unremarkable. No acute diverticulitis. No small bowel obstruction. No free air. PELVIS: Appendix: No findings to suggest acute appendicitis. Bladder: Severe wall thickening of the urinary bladder with multiple locules of air, consistent with severe UTI/emphysematous cystitis. Urology evaluation should be considered. Reproductive: Cystic changes and calcifications of the prostate gland, correlate with surgical history. The prostate gland is enlarged measuring 5.2 cm. ABDOMEN and PELVIS: Intraperitoneal space: See above. Bones/joints: RIGHT hip arthroplasty. Old fracture deformity of the LEFT iliac bone. No dislocation. Soft tissues: Fat-containing RIGHT inguinal hernia. Vasculature: Unremarkable. No abdominal aortic aneurysm. Lymph nodes: Unremarkable. No enlarged lymph nodes. IMPRESSION: Severe wall thickening of the urinary bladder with multiple locules of air, consistent with severe UTI/emphysematous cystitis. Urology evaluation should be considered. No perirectal or perianal abscess. Cystic changes and calcifications of the prostate gland, correlate with surgical history. The prostate gland is enlarged measuring 5.2 cm. Electronically signed by: Karlo Nuñez MD 03/24/23 20:27 PM Discharge Plan Visit Data Chief Complaint: GI Assessment Stated Complaint: PASSING FECES THRU PENIS ED Provider: Janeth Mejia Discharge Problem: Emphysematous cystitis, Leukocytosis Forms [facility] Pres[facility] Prescriptions: No Action vitamin E 670 mg (1,000 unit) Capsule 670 mg PO DAILY phenobarbital 30 mg tablet 30 mg PO BID omega 3-nut-gdy-fish oil [Fish Oil] 1,000 mg (120 mg-180 mg) Capsule 1 cap PO BID sulfasalazine 500 mg tablet,delayed release (DR/EC) 1,000 mg PO TID primidone 250 mg tablet 250 mg PO BID levetiracetam 750 mg tablet 750 mg PO BID Referrals Referrals: Keuyr Olivares MD [Primary Care Provider] -
[2023-03-24] MEDS ORDERED: PIPERACILLIN/TAZOBACTAM 4.5 GM/100 ML BAG IV ONE (21:03)
--- NOTE | 2023-03-24 22:07 | Urology Consultation ---
Date of Consultation March 24, 2023 Assessment & Plan (1) Emphysematous cystitis: I discussed with the treating emergency room physician and the patient is being admitted on the hospitalist service. We recommend proceeding as follows from a urologic perspective: urinalysis has been ordered and is pending. Urine culture will likely be indicated but we will wait for urinalysis results before making determination The treating emergency room physician has initiated approximately Zosyn. Would recommend continuing this antibiotic and tailor antibiotics based on urinalysis and culture results Due to concern for emphysematous cystitis would recommend placing a Segal catheter and nursing staff is in the process of doing this. This will allow maximal drainage of an infected urine As noted by the treating emergency room physician with a prominent air position raising concern the patient may have had stool in the urine raising the concern for potential colovesical fistula. If this remains a concern will be beneficial to obtain a CT scan with rectal contrast and intravesical contrast At the present time patient is normotensive without tachycardia or fever and is nontoxic-appearing. Additional recommendations were forthcoming based on pending items and his clinical course as unfolds History of Present Illness Reason for Consultation: Urinary tract infection with concern for emphysematous cystitis History of Present Illness This 68-year-old male who was sent in to the emergency department by his primary care team. The patient reports that for approximately 1 week he has been having urinary issues. He says he is having dysuria but denies any hematuria. He does report urinary frequency. He denies any fever, shakes, or chills. He denies any abdominal pain but does admit to some suprapubic discomfort. He denies any nausea or vomiting and denies any flank pain. Patient denies any undue fatigue. I discussed with the treating emergency room physician and they noted that the primary care physicians felt this admitted. The patient had discolored urine consistent with stool in the urine and due to this concern the patient was sent in to the emergency department for further evaluation. Since arrival to hospital patient has had labs and imaging which independent reviewed. CT scan of the abdomen pelvis showed the patient had severe thic kening of the urinary bladder wall which also contained multiple which is felt to be consistent with a severe UTI and potential emphysematous cystitis. Labs include a CBC with a white blood cell count was elevated 15.1. Hemoglobin and hematocrit 12.7 and 40.4. Platelet count was noted to be normal. Chemistry profile showed sodium and potassium along with BUN and creatinine were normal. Urinalysis has been ordered and is pending. At the time of my interview the patient was resting comfortably in bed and was in no distress. Allergies Allergy/AdvReac Type Severity Reaction Status Date / Time No Known Allergies Allergy Unknown Verified 03/24/23 21:25 Home Medications Medication Instructions Recorded Confirmed Type levetiracetam 750 mg tablet 750 mg PO BID 03/30/21 03/24/23 History primidone 250 mg tablet 250 mg PO BID 03/30/21 03/24/23 History sulfasalazine 500 mg 1,000 mg PO TID 03/30/21 03/24/23 History tablet,delayed release omega 0-juu-jlb-fish oil 1,000 mg 1 cap PO BID 03/24/23 03/24/23 History (120 mg-180 mg) capsule (Fish Oil) phenobarbital 30 mg tablet 30 mg PO BID 03/24/23 03/24/23 History vitamin E 670 mg (1,000 unit) 670 mg PO DAILY 03/24/23 03/24/23 History capsule Patient History Medical History Closed hip fracture Surgical History History of right hip replacement Social History Smoking Status: Never smoker Second Hand Exposure: No; Do You Dip or Chew Tobacco: No; Hx Alcohol Use: Yes (STOPPED "A LONG TIME AGO") Hx Substance Use: No Preferred Language: Mauritanian Communication Ability: Effective Delicate Fabrics Presser Required: No Beliefs That Will Affect Care: None Current Living Situation: Alone Feels Safe at Home: Yes Assistive Devices: Walker Review of Systems Constitutional: no fever and no chills Ear, Nose, Mouth, Throat: no ear pain Respiratory: no cough and no dyspnea Cardiovascular: no chest pain Gastrointestinal: + abdominal pain (Suprapubic discomfort) ; no nausea and no vomiting Musculoskeletal: no back pain Integumentary: no rash Neurologic: no localized weakness Physical Exam Constitutional: WD/WN, vitals as above Eyes: no conjunctival abnormality ENMT: Ears: no hearing impairment and no external ear abnormality Mouth: no oropharynx abnormality Neck: trachea midline Respiratory: normal respiratory effort; no respiratory distress and no labored breathing Cardiovascular: Rate/Rhythm: regular rate and regular rhythm Vessels: dorsalis pedis pulses present and radial pulses present Gastrointestinal (Abdomen): Abdomen soft with minimal distention. There is no rebound tenderness or guarding. Patient did have some discomfort noted with deep palpation of the suprapubic region. Musculoskeletal: No calf tenderness Skin: no rashes Neurologic: moves all extremities Psychiatric: A+Ox3, euthymic affect Genitourinary: No CVA tenderness noted with percussion bilaterally Results & Data Vital Signs (Past 12 Hours) Vital Signs Temp Pulse Pulse Resp BP BP Pulse Ox 03/24/23 21:42 89 20 141/82 H 93 03/24/23 21:41 93 H 03/24/23 17:45 36.8 C 108 H 18 142/73 H 94 O2 Del Method 03/24/23 21:42 Room Air 03/24/23 21:41 03/24/23 17:45 Room Air PG Care Time/CCT Total # of Minutes Spent Total Time Spent with Patient: Total time spent is greater than 50% in coordination of care (as documented) at patient's floor/unit and/or counseling patient: Coding Level of Care Code 86947 INT INP/OBS CARE 3/75MIN Diagnoses Emphysematous cystitis N30.80
[2023-03-24 22:36] LABS: Appearance Urine Turbid (Clear); Bacteria Urine Automated 4+ (Negative); Blood Urine 2+ (Negative); Color Urine Dark Yellow; Glucose Urine UA Negative (Negative); Ketones Urine 1+ (Negative); Leukocyte Esterase Urine 2+ (Negative); Nitrite Urine Positive (Negative); Specific Gravity Urine > 1.045 (1.000-1.030); Urobilinogen Urine Negative (Negative); WBC Urine Automated >30 /hpf (0-5); pH Urine 7.5 (4.5-7.5)
[2023-03-24 22:37] LABS: Bilirubin Urine 2+ (Negative); Protein Urine 3+ (Negative)
--- NOTE | 2023-03-25 00:41 | History & Physical Report ---
Date of Service March 25, 2023 Assessment & Plan (1) Emphysematous cystitis: Plan: 68-year-old male with past med significant for colloid thyroid nodule, mitral valve disorder, GERD, generalized convulsive epilepsy, primary open-angle glaucoma bilateral, spastic hemiplegic cerebral palsy, Crohn's disease, adjustment disorder who lives with his brother was brought in because urinary symptoms. He was having burning micturition for last 2 weeks and also noted some stool in the urine. Saw PCP and urinalysis showed some stool and was sent in here. CT scan done in the ER showing emphysematous cystitis Emphysematous cystitis Stool in the urine History of Crohn's UTI On Zosyn IV fluids Appreciate urology inputs S/p Segal Question of colovesical fistula. If concerns for colovesical fistula urology recommends CT scan with rectal contrast and intravesical contrast Continue monitor in the hospital History of epilepsy On phenobarbital and primidone and Keppra Crohn's On sulfasalazine History of mitral valve disorder History of adjustment disorder History of cerebral palsy DVT prophylaxis Lovenox Disposition Medical floor Full code History of Present Illness Chief Complaint: Urinary symptoms Primary Care Provider: Keyur Olivares MD 68-year-old male with past med history significant for colloid thyroid nodule, mitral valve disorder, GERD, generalized convulsive epilepsy, primary open-angle glaucoma bilateral, spastic hemiplegic cerebral palsy, Crohn's disease, adjustment disorder who lives with his brother was brought in because of urinary symptoms. He was having burning micturition for last 2 weeks and also noted some stool in the urine. Saw PCP and urinalysis showed some stool and was sent in here. Currently resting comfortably and hemodynamic stable. Denies any fevers. Denies abdominal pain. Currently denies any diarrhea. No nausea vomiting. No chest pains. No shortness of breath. No cough. No headache. No runny nose or sore throat. States ambulates with a cane. Past medical history. As mentioned above Past surgical history. Colonoscopy. Left goniotomy. Right goniotomy. Cataract surgeries. Social history. Lives with his brother. No smoking. No alcohol use. No drug use. Family history. Mother had NM at age 50. Father had COPD at age of 67 Allergies Allergy/AdvReac Type Severity Reaction Status Date / Time No Known Allergies Allergy Unknown Verified 03/24/23 21:25 Home Medications Medication Instructions Recorded Confirmed Type levetiracetam 750 mg tablet 750 mg PO BID 03/30/21 03/24/23 History primidone 250 mg tablet 250 mg PO BID 03/30/21 03/24/23 History sulfasalazine 500 mg 1,000 mg PO TID 03/30/21 03/24/23 History tablet,delayed release omega 3-agx-aog-fish oil 1,000 mg 1 cap PO BID 03/24/23 03/24/23 History (120 mg-180 mg) capsule (Fish Oil) phenobarbital 30 mg tablet 30 mg PO BID 03/24/23 03/24/23 History vitamin E 670 mg (1,000 unit) 670 mg PO DAILY 03/24/23 03/24/23 History capsule Past Med/Surg History Medical History Closed hip fracture Surgical History History of right hip replacement Social History Smoking Status: Never smoker Second Hand Exposure: No; Do You Dip or Chew Tobacco: No; Tobacco Cessation Education Requested by Patient: No Hx Alcohol Use: Yes Hx Substance Use: No Preferred Language: Ukrainian Communication Ability: Effective Wig Stylist Required: No Beliefs That Will Affect Care: None Current Living Situation: Alone Other Information That Helps Us Care for You: No Feels Safe at Home: Yes Safety Concerns: Feels Safe At This Time Assistive Devices: Cane Review of Systems Review of Systems: All systems reviewed & are unremarkable except as noted in HPI & below Physical Exam Physical Exam: General-Not in distress. Head- atraumatic Eyes- PERRL. ENT- oropharynx clear Neck- supple, no JVD,. Lungs- clear to auscultation no wheezing or crackles. Heart- regular rhythm; no murmur, no gallop. Abdomen- normal bowel sounds, soft, nontender, no distension. Extremities- no pretibial edema, no erythema seen. Neuro- alert, oriented PERRL, no facial palsy; no dysarthria Skin- warm & dry Results & Data Results & Data Vital Signs (Past 12 Hours) Vital Signs Temp Pulse Pulse Resp BP BP Pulse Ox 11/28/23 23:00 87 18 157/93 H 94 03/24/23 21:42 89 20 141/82 H 93 03/24/23 21:41 93 H 03/24/23 17:45 36.8 C 108 H 18 142/73 H 94 O2 Del Method 03/24/23 23:00 Room Air 03/24/23 21:42 Room Air 03/24/23 21:41 03/24/23 17:45 Room Air Diagnostic Findings Laboratory Results WBC 15.13 K/ul (4.8-10.8) H 03/24/23 18:01 RBC 4.09 M/uL (4.70-6.10) L 03/24/23 18:01 Hgb 12.7 g/dl (14.0-18.0) L 03/24/23 18:01 Hct 40.4 % (42.0-52.0) L 03/24/23 18:01 MCV 98.8 fL (80.0-100.0) 03/24/23 18:01 MCH 31.1 pg (25.0-34.0) 03/24/23 18:01 MCHC 31.4 g/dL (32.0-36.0) L 03/24/23 18:01 RDW Std Deviation 49.1 fL (36.4-46.3) H 03/24/23 18:01 RDW Coeff of Dimitri 13.5 % (11.5-14.5) 03/24/23 18:01 Plt Count 254 K/uL (130-400) 03/24/23 18:01 MPV 10.8 fL (9.4-12.4) 03/24/23 18:01 Immature Gran % (Auto) 0.3 % 03/24/23 18:01 Neut % (Auto) 85.7 % 03/24/23 18:01 Lymph % (Auto) 6.1 % 03/24/23 18:01 [place] % (Auto) 7.4 % 03/24/23 18:01 Eos % (Auto) 0.1 % 03/24/23 18:01 Baso % (Auto) 0.4 % 03/24/23 18:01 Neut # (Auto) 12.96 K/uL (1.40-6.50) H 03/24/23 18:01 Lymph # (Auto) 0.93 K/uL (1.20-3.40) L 03/24/23 18:01 [place] # (Auto) 1.12 K/uL (0.11-0.59) H 03/24/23 18:01 Eos # (Auto) 0.01 K/uL (0.00-0.50) 03/24/23 18:01 Baso # (Auto) 0.06 K/uL (0.00-0.20) 03/24/23 18:01 Immature Gran # (Auto) 0.05 K/uL (0.01-0.20) 03/24/23 18:01 Sodium 141 mmol/L (136-145) 03/24/23 18: Potassium 3.7 mmol/L (3.5-5.1) 03/24/23 18: Chloride 105 mmol/L (98-107) 03/24/23 18: Carbon Dioxide 27 mmol/L (21-32) 03/24/23 18:01 Anion Gap 9 (3-11) 03/24/23 18:01 BUN 21 mg/dl (6-23) 03/24/23 18:01 Creatinine 0.98 mg/dl (0.6-1.4) 03/24/23 18:01 Est Cr Clr Drug Dosing 66.5 ml/min 03/24/23 18:01 Est GFR ( Amer) 90.8 ml/min 03/24/23 18:01 Est GFR (Non-Af Amer) 78.4 ml/min 03/24/23 18:01 BUN/Creatinine Ratio 21.4 (10-20) H 03/24/23 18:01 Glucose 98 mg/dl (70-99(Fasting)) 03/24/23 18:01 Calcium 9.1 mg/dl (8.6-10.3) 03/24/23 18: Total Bilirubin 0.5 mg/dl (0.2-1.0) 03/24/23 18:01 AST 23 U/L (13-39) 03/24/23 18:01 ALT 21 U/L (7-52) 03/24/23 18:01 Alkaline Phosphatase 100 U/L (34-104) 03/24/23 18:01 Total Protein 8.2 gm/dl (6.0-8.3) 03/24/23 18:01 Albumin 4.1 gm/dl (3.4-5.0) 03/24/23 18:01 Globulin 4.1 gm/dl (2.5-4.0) H 03/24/23 18:01 Albumin/Globulin Ratio 1.0 (0.9-2) 03/24/23 18:01 Lipase 11 U/L (11-82) 03/24/23 18:01 Procalcitonin 0.12 ng/ml (0-0.5) 03/24/23 18:01 Urine Color Dark Yellow 03/24/23 22:00 Urine Appearance Turbid (Clear) A 03/24/23 22:00 Urine pH 7.5 (4.5-7.5) 03/24/23 22:00 Ur Specific [place] > 1.045 (1.000-1.030) H 03/24/23 22:00 Urine Protein 3+ (Negative) H 03/24/23 22:00 Urine Glucose (UA) Negative (Negative) 03/24/23 22:00 Urine Ketones 1+ (Negative) H 03/24/23 22:00 Urine Blood 2+ (Negative) H 03/24/23 22:00 Urine Nitrite Positive (Negative) A 03/24/23 22:00 Urine Bilirubin 2+ (Negative) H 03/24/23 22:00 Urine Urobilinogen Negative (Negative) 03/24/23 22:00 Ur Leukocyte Esterase 2+ (Negative) H 03/24/23 22:00 Urine WBC (Auto) >30 /hpf (0-5) H 03/24/23 22:00 Urine RBC (Auto) 10-30 /hpf (0-4) H 03/24/23 22:00 U Hyaline Cast (Auto) 1-5 /lpf (0-5) 03/24/23 22:00 U Epithel Cells (Auto) 10-20 /lpf (0-5) H 03/24/23 22:00 Urine Bacteria (Auto) 4+ (Negative) H 03/24/23 22:00 Urine Yeast Not Reportable 03/24/23 22:00 Impressions Abdomen/Pelvis CT 03/24/23 17:53 Exam(s): CT ABDOMEN + PELVIS With Contrast IV Amt: 93 ml opti 320 EXAM: CT Abdomen and Pelvis With Intravenous Contrast CLINICAL HISTORY: Reason for exam: h/o rectal fistula, passing stool thru penis/anus. TECHNIQUE: Axial computed tomography images of the abdomen and pelvis with intravenous contrast. CTDI is 25.6 mGy and DLP is 1210.61 mGy-cm. Automated exposure control was utilized for the study. A dose lowering technique was utilized adhering to the principles of ALARA. CONTRAST: Patient received 93 ml opti 320 of IV contrast COMPARISON: No relevant prior studies available. FINDINGS: Lung bases: Unremarkable. No mass. No consolidation. ABDOMEN: Liver: Unremarkable. No focal hepatic lesion. Gallbladder and bile ducts: Unremarkable. No calcified stones. No ductal dilation. Normal gallbladder. Pancreas: Unremarkable. No mass. No ductal dilation. Spleen: Unremarkable. No splenomegaly. Adrenals: Unremarkable. No mass. Kidneys and ureters: No hydronephrosis or delayed nephrogram. LEFT lower pole renal cyst measures 9 mm. Stomach and bowel: Unremarkable. No acute diverticulitis. No small bowel obstruction. No free air. PELVIS: Appendix: No findings to suggest acute appendicitis. Bladder: Severe wall thickening of the urinary bladder with multiple locules of air, consistent with severe UTI/emphysematous cystitis. Urology evaluation should be considered. Reproductive: Cystic changes and calcifications of the prostate gland, correlate with surgical history. The prostate gland is enlarged measuring 5.2 cm. ABDOMEN and PELVIS: Intraperitoneal space: See above. Bones/joints: RIGHT hip arthroplasty. Old fracture deformity of the LEFT iliac bone. No dislocation. Soft tissues: Fat-containing RIGHT inguinal hernia. Vasculature: Unremarkable. No abdominal aortic aneurysm. Lymph nodes: Unremarkable. No enlarged lymph nodes. IMPRESSION: Severe wall thickening of the urinary bladder with multiple locules of air, consistent with severe UTI/emphysematous cystitis. Urology evaluation should be considered. No perirectal or perianal abscess. Cystic changes and calcifications of the prostate gland, correlate with surgical history. The prostate gland is enlarged measuring 5.2 cm. Electronically signed by: Karlo Nuñez MD 03/24/23 20:27 PM Code Status & VTE Plan VTE Prophylaxis Plan VTE Prophylaxis will be ordered: Yes
[2023-03-25] MEDS ORDERED: POLYETHYLENE (MIRALAX) 17 GM PACK PO PRN (02:19)
[2023-03-25] MEDS ORDERED: ACETAMINOPHEN 325 MG TAB PO PRN (02:19)
[2023-03-25] MEDS ORDERED: SODIUM CHLORIDE 0.9% 1,000 ML IV SCH (02:19)
--- OUTSIDE RECORDS SUMMARY | 2023-03-25 02:48 | External Medical Summary ---
Author Name Unknown Address Unknown Organization K09:[facility] [place] [address] Laboratory Report Ordering Provider Test Date Status JENACHANTEL 03/24/2023 16:28:26 Final Urine appears to be contamin ated with stool specimen Observation Date Value Abnormality Reference (Units ) Status RBC, Urine 03/24/2023 16:28:26 0-2 0-2 (/HPF) Final WBC, Urine 03/24/2023 16:28:26 20-29 Abnormal 0-2 (/HPF) Final Bacteria [#/area] in Urine sediment by Microscopy high power field 03/24/2023 16:28:26 >200 Abnormal 0-25 (/HPF) Final Performing Location [facility] [place] [address]
--- OUTSIDE RECORDS SUMMARY | 2023-03-25 02:48 | External Medical Summary | Summary of Care ---
Author Name Unknown Organization [facility] Address [address] [place] [address] Phone [phone] Care Team Providers Care Laundry Aide Name Role Phone Elise DIEGO MD, Keyur Doran Primary Care Provider [phone] Reason for Visit * Reason Onset Date Comments Encounter Created in Error 12/24/2022 Encounter Details Date Type Department Care Team Description 12/24/2022 Telephone Family Practice [facility] [address] [place] [address] Keyur Olivares III, MD [address] [place] [address] Encounter Created in Error Allergies No known active allergiesdocumented as of this encounter (statuses as of 12/24/2022) Medications Medication Sig Dispensed Refills Start Date End Date Status Fish Oil 1000 MG Oral Capsule Take by mouth 1 Capsule in the morning AND 1 Capsule before bedtime. 180 Capsule 3 05/29/2021 Active Multivitamin Adult (Minerals) Oral Tablet 1 TABLET DAILY 90 Tablet 1 05/29/2021 Active PHENobarbital 30 MG Oral Tablet Take 1 Tablet by mouth in the morning and 1 Tablet before bedtime. (32.4 mg). 180 Tablet 1 08/05/2022 Active sulfaSALAzine 500 MG Oral Tablet (Azulfidine) Take 2 Tablets by mouth in the morning and 2 Tablets at noon and 2 Tablets before bedtime. TAKE 2 TABLETS BY MOUTH IN THE MORNING THEN 2 TABLETS AT NOON THEN 2 TABLETS BEFORE BEDTIME. 540 Tablet 11 09/26/2022 Active Primidone 250 MG Oral Tablet (Mysoline)Indication s:Generalized convulsive epilepsy without intractable epilepsy (HCC) Take 1 tablet in the morning and 1 tablet in the evening 180 Tablet 3 11/04/2022 Active levETIRAcetam 750 MG Oral TabletIndications:Ge neralized convulsive epilepsy without intractable epilepsy (HCC) TAKE 1 TABLET BY MOUTH EVERY DAY IN THE MORNING AND BEFORE BEDTIME 180 Tablet 3 11/23/2022 Active documented as of this encounter (statuses as of 12/24/2022) Active Problems Problem Noted Date Hemiplegia affecting right dominant side 06/20/2022 Colloid thyroid nodule 06/20/2022 Adjustment disorder 06/20/2022 Spastic hemiplegic cerebral palsy 2021 Thyroid lump 10/03/2020 Primary open-angle glaucoma, bilateral, mild stage 10/03/2020 Gastroesophageal reflux disease without esophagitis 10/04/2019 ADVANCE DIRECTIVE INFORMATION 09/02/2004 Overview: No, Advance Directive brochure given to patient at prior appointment. GENERALIZED CONVULSIVE EPILEPSY; WITHOUT MENTION OF INTRACTABLE EPILEPSY Mitral valve disorder Regional enteritis documented as of this encounter (statuses as of 12/24/2022) Resolved Problems Problem Noted Date Resolved Date CEREBRAL PALSY NOS 06/20/2022 CHR BLOOD LOSS ANEMIA 11/07/2019 documented as of this encounter (statuses as of 12/24/2022) Immunizations Name Administration Dates Next Due COVID-19 mRNA, LNP-s, No Pre serve, 2-Dose Series (Tactics Cloud) 12/04/2021,03/16/2021,08/23/2020,08/02 Pneumococcal Conjugate Vacc, 13 Valent (Prevnar) 01/25/2020 Pneumococcal Polysaccharide PPV23 (Pneumovax) 10/17/2021 Seasonal Influenza, PF, 6 mo ns & Above, IM , (Flulaval) 01/25/2020,05/29/2017 Seasonal Influenza, Quadriva lent Hd, 65+ Yrs 01/17/2021 Seasonal Influenza, Quadriva lent, No Preserve, IM 12/14/2018 Seasonal Influenza, Split, I IV3, With Preserve, Inj 07/14/2012,03/10/2008,02/12/2007 Seasonal Influenza, Trivalen t, Adjuvanted, 65+ yrs 02/08/2021 TD - Tetanus/Diptheria (ADULT) 01/13/2004 TDAP (age 10 and older)(Boostrix) 08/18/2015, documented as of this encounter Social History Tobacco Use Types Packs/Day Years Used Date Smoking Tobacco: Never Smokeless Tobacco: Former Comments:chewed a few yrs ag o Alcohol Use Standard Drinks/Week Comments No 0 (1 standard drink = 0.6 oz pur e alcohol) Food Insecurity Answer Date Recorded Within the past 12 months, y ou worried that your food would run out before you got money to buy more. Never true 10/17/2021 Within the past 12 months, t he food you bought just didn't last and you didn't have money to get more. Never true 10/17/2021 Sex Assigned at Date Recorded Not on file Job Start Date Occupation Industry Not on file Not on file Not on file documented as of this encounter Plan of Treatment Upcoming Encounters Date Type Specialty Care Team Description 01/01/2023 Office Visit Family Medicine EliseKeyur hastings III, MD [address] [place] [address] 03/04/2023 Office Visit Podiatry Janeth Wu DPM [address] [facility] [place] [address] 04/03/2023 Office Visit Gastroenterology Kyle Jensen MD [address] [place] [address] 05/07/2023 Office Visit [facility]C [facility] [place] [address] Health Maintenance Due Date Last Done Comments Zoster Vaccines (1 of 2) 1973 Cologuard 1999 Fecal Occult Blood Test 1999 Sigmoidoscopy 1999 COVID-19 Vaccine (5 - Pfizer risk series) 01/29/2022 12/04/2021, 03/16/2021, 08/23/2020, Additional history exists Depression Screening, Annual for Pts 12 and Over 10/17/2022 10/17/2021 Influenza Vaccine (FLU shot) (#1) 2022 02/08/2021, 01/17/2021, 01/25/2020, Additional history exists DTaP,Tdap,and Td Vaccines (3 - Td or Tdap) 08/17/2025 08/18/2015, 10/22/2011, 01/13/2004 Diabetes Screening 11/14/2025 11/14/2022, 0 08/22/2021, 04/25/2021, Additional history exists Lipid Panel 07/08/2027 07/07/2022, 05/2017, 07/16/2012, Additional history exists Colonoscopy 10/30/2029 10/31/2019, 09/2019, 11/03/2017, Additional history exists Colorectal Cancer Screening 10/30/2029 Pneumococcal Vaccine: 65+ Years Completed 10/17/2021, 01/25/2020 GARDASIL-HPV IMMUNIZATION SERIES Aged Out No longer eligible based on patient's age to complete this topic Hepatitis B Aged Out No longer eligi ble based on patient's age to complete this topic MENINGOCOCCAL (MENACTRA/MENVEO) Aged Out No longer eligible based on patient's age to complete this topic documented as of this encounter Medical Devices Implanted Type Area Curtain Hemmer Automatic Device Identifier Shelf Expiration Date Model / Serial / Lot Lens Intraoc 22.5 - [id number] - [id number] Implanted:Qty: 1 on 11/10/2019 by Yao Salcido MD at OR [facility] [address] Left: Eye [employer]OMB 02/25/2024 [id number] / [id number] / [id number] Lens Intraoc 22.5 - [id number] - [id number] Implanted:Qty: 1 on 11/24/2019 by Yao Salcido MD at OR [facility] [address] Right: Eye [employer]CH [employer]OMB 03/26/2024 [id number] / [id number] / documented as of this encounter Advance Directives Latest Code Status on File Code Status Date Activated Date Inactivated Comments Full Code 07/04/2020 10:34 AM 07/04/2020 3:04 PM This order reflects the patients wishes and were consensually agreed upon. Question Answer Comments Discussion of Advance Directives occurred with: Patient Does the patient have a Living Will? No Does the patient have Health Care Power of Supervisor Ordnance Truck Installation? No Code Status History Code Status Date Activated Date Inactivated Comments Full Code 07/04/2020 10:14 AM 07/04/2020 10:34 AM Thi s order reflects the patients wishes and were consensually agreed upon. Question Answer Comments Discussion of Advance Directives occurred with: Patient Does the patient have a Living Will? No Does the patient have Health Care Power of Supervisor Ordnance Truck Installation? No Care Teams Laundry Aide Relationship Specialty Start Date End Date Elise JOHNATHON, Keyur Doran MD [address] [place] [id number] PCP - General 08/23/01 documented as of this encounter
--- OUTSIDE RECORDS SUMMARY | 2023-03-25 02:48 | External Medical Summary | Summary of Care ---
Author Name Unknown Organization [facility] Address [address] [place] [address] Phone [phone] Care Team Providers Care Data Report Analyst Name Role Phone Elise DIEGO MD, Keyur Doran Primary Care Provider [phone] Reason for Visit * Reason Onset Date Comments Appointment 11/03/2022 Advice 11/03/2022 Encounter Details Date Type Department Care Team Description 11/03/2022 Telephone Neurology [facility] [address] [place] [address] Services, Scheduling [address] [place] [address] Appointment; Advice Allergies No known active allergiesdocumented as of this encounter (statuses as of 12/17/2022) Medications Medication Sig Dispensed Refills Start Date [...] 09/26/2022 Active Primidone 250 MG Oral Tablet (Mysoline)Indicat ions:Generalized convulsive epilepsy without intractable epilepsy (HCC) Take by mouth 2 Tablets in the morning AND 2 Tablets before bedtime. 360 Tablet 3 10/17/2021 3 Discontinued levETIRAcetam 750 MG Oral TabletIndications :Generalized convulsive epilepsy without intractable epilepsy (HCC) Take by mouth 1 Tablet in the morning AND 1 Tablet before bedtime. 180 Tablet 3 10/17/2021 3 Discontinued documented as of this encounter (statuses as of 12/17/2022) Active Problems Problem Noted Date Hemiplegia affecting [...] as of this encounter (statuses as of 12/17/2022) Resolved Problems Problem Noted Date Resolved Date CEREBRAL PALSY NOS 06/20/2022 CHR BLOOD LOSS ANEMIA 11/07/2019 documented as of this encounter (statuses as of 12/17/2022) Immunizations Name Administration Dates Next Due COVID-19 mRNA, LNP-s, No Pre serve, 2-Dose Series (InHomeVest) 12/04/2021,03/16/2021,08/23/2020,08/02 Pneumococcal Conjugate Vacc, 13 Valent (Prevnar) [...] on file documented as of this encounter Miscellaneous Notes * Telephone Encounter - SHIRLEY Ellis - 11/04/2022 8:22 AM EDT Made pt's sister aware and they expressed understanding. * Telephone Encounter - MANISHA Martines - 11/04/2022 7:29 AM EDT Please advise sister calling in about labs and Seizure [phone] * Telephone Encounter - MANISHA Alexandre - 11/03/2022 3:31 PM EDT Pt sister said she believes pt has to get bloodwork tomorrow at his appt and she is wondering if ptshould take his seizure medication due to last time he wasn't supposed to. Please call pt sister Beverley back to discuss at [phone]. Thank you documented in this encounter Plan of Treatment Upcoming Encounters Date Type Specialty Care Team Description 01/01/2023 Office Visit Family Medicine Elise IIIKeyur MD [address] [facility] [place] [address] 03/04/2023 Office Visit Podiatry Janeth Wu, DPM [address] [facility] [place] [address] 04/03/2023 Office Visit Gastroenterology Kyle Jensen MD [address] [place] [address] 05/07/2023 Office Visit Neurology Scarlett Long PA-C [facility] [place] [address] Health Maintenance Due Date Last Done Comments [...] this encounter Medical Devices Implanted Type Area Phlebotomy Technologist Device Identifier Shelf Expiration Date Model / Serial / Lot Lens Intraoc 22.5 - [id number] - [id number] Implanted:Qty: 1 on 11/10/2019 by Yao Salcido MD at OR [facility] Left: Eye [employer]OM[employer] 02/25/2024 [id number] / [id number] / [id number] Lens Intraoc 22.5 - [id number] - [id number] Implanted:Qty: 1 on 11/24/2019 by Yao Salcido MD at OR [facility] Right: Eye [employer]OM[employer] 03/26/2024 [id number] / [id number] / documented as of this encounter Advance [...] the patient have Health Care Power of Director Of Promotions? No Code Status History Code Status Date Activated Date Inactivated Comments Full Code 07/04/2020 10:14 AM 07/04/2020 10:34 AM Thi s order reflects the patients wishes and were consensually agreed upon. Question Answer Comments Discussion of Advance Directives occurred with: Patient Does the patient have a Living Will? No Does the patient have Health Care Power of Director Of Promotions? No Care Teams Data Report Analyst Relationship Specialty Start Date End Date Keyur Olivares III, MD [address] [place] [address] PCP - General 08/23/01 documented as of this encounter
--- OUTSIDE RECORDS SUMMARY | 2023-03-25 02:48 | External Medical Summary | Summary of Care ---
Author Name Unknown Organization [facility] Address [address] [place] [address] Phone [phone] Care Team Providers Care Event Promoter Name Role Phone Elise DIEGO MD, Keyur Doran Primary Care Provider [phone] Reason for Visit * Reason Onset Date Comments Advice 03/03/2023 Encounter Details Date Type Department Care Team (Late st Contact Info) Description 03/03/2023 Telephone Podiatry [facility] [address] [place] [address] Services, Scheduling [address] [place] [address] Advice Allergies No known active allergiesdocumented as of this encounter (statuses as of 03/04/2023) Medications Medication Sig Dispensed Refills Start Date End Date Status Fish Oil 1000 MG Oral Capsule Take by mouth 1 Capsule in the morning AND 1 Capsule before bedtime. 180 Capsule 3 05/29/2021 Active Multivitamin Adult (Minerals) Oral Tablet 1 TABLET DAILY 90 Tablet 1 05/29/2021 Active sulfaSALAzine 500 MG Oral Tablet (Azulfidine) [...] BEFORE BEDTIME 180 Tablet 3 11/23/2022 Active PHENobarbital 30 MG Oral Tablet Take 1 Tablet by mouth in the morning and 1 Tablet before bedtime. (32.4 mg). 180 Tablet 3 01/01/2023 Active documented as of this encounter (statuses as of 03/04/2023) Active Problems Problem Noted Date Diagnosed Date Hemiplegia affecting right dominant side 023 Colloid thyroid nodule 06/20/2022 Adjustment disorder 06/20/2022 Spastic hemiplegic cerebral palsy 05/07/2021 Thyroid lump 10/03/2020 Primary open-angle glaucoma, bilateral, mild sta ge 10/03/2020 Gastroesophageal reflux disease without esophagi tis 10/04/2019 ADVANCE DIRECTIVE INFORMATION 09/02/2004 Overview: No, Advance Directive brochure given to patient at prior appointment. GENERALIZED CONVULSIVE EPILE PSY; WITHOUT MENTION OF INTRACTABLE EPILEPSY Mitral valve disorder Regional enteritis documented as of this encounter (statuses as of 03/04/2023) Resolved Problems Problem Noted Date Diagnosed Date Resolved Date CEREBRAL PALSY NOS 3 CHR BLOOD LOSS ANEMIA 2019 documented as of this encounter (statuses as of 03/04/2023) Immunizations Name Administration Dates Next Due COVID-19 mRNA, LNP-s, No Pre serve, 2-Dose Series ([employer]) 12/04/2021,03/16/2021,08/23/2020,08/02 Pneumococcal Conjugate Vacc, 13 Valent (Prevnar) 01/25/2020 Pneumococcal Polysaccharide PPV23 (Pneumovax) 10/17/2021 SEASONAL INFLUENZA, PF, 6 M & Above, IM , (FLULAVAL or FLUZONE) 01/25/2020,05/29/2017 Seasonal Influenza, Quadriva lent Hd, 65+ [...] drink = 0.6 oz pur e alcohol) PHQ-2 Answer Date Recorded PHQ Adult Total Score 0 10/17/2021 Hunger Vital Sign Answer Date Recorded Within the past 12 months, y ou worried that your food would run out before you got the money to buy more. Never true 10/18/19 22 Within the past 12 months, t he food you bought just didn't last and you didn't have money to get more. Never true 10/17/2021 Sex and Gender Information Value Date Recorded Sex Assigned at Not on file Gender Identity Not on file Sexual Orientation Not on file Job Start Date Occupation Industry Not on file Not on file Not on file documented as of this encounter Miscellaneous Notes * Telephone Encounter - Maritza Vergara LPN - 03/04/2023 1:15 PM EST Called back, Beverley identifies herself in the voice mail greeting; left detailed message that insurance would only cover 4 visits per year, we trim them as short as safely possible. Please call us back with any other questions * Telephone Encounter - Jamie Fischer OSA - 03/03/2023 8:29 AM EST Pt sister Beverley is calling asking for a call concerning pt nails. She is wondering if they need to be filed down more vs coming every 2 months. She states that they are poking through his shoes. She is asking for a call at [phone] documented in this encounter Plan of Treatment Upcoming Encounters Date Type Department Care Team (Late st Contact Info) Description 04/03/2023 10:20 AM EST Office Visit Gastroenterology, [facility] 132 [facility] [place] [address] Kyle Jensen MD 132 [facility] [place] [address] 05/07/2023 9:00 AM EST Office Visit Neurology [facility] 200 [facility] [place] [address] Scarlett Long PA-C [address] [place] [address] 06/10/2023 10:00 AM EST Office Visit Podiatry [facility] 132 [facility] [place] [address] Janeth Wu, DPM [address] [place] [address] 07/10/2023 9:40 AM EDT Office Visit Family Practice [facility] 200 [facility] [place] [address] Keyur Olivares III, MD 200 [facility] [place] [address] Health Maintenance Due Date Last Done Comments Zoster Vaccines (1 of 2) 1973 Cologuard 1999 Fecal Occult Blood Test 1999 Sigmoidoscopy 1999 Depression Screening 10/17/2022 10/17/2021 COVID-19 Vaccine (2022-24 season) 2022 12/04/2021, 03/16/2021, 08/23/2020, Additional history exists Influenza Vaccine (FLU shot) (#1) 2022 02/08/2021, [...] this encounter Medical Devices Implanted Type Area Control System Manager Device Identifier Shelf Expiration Date Model / Serial / Lot Lens Intraoc 22.5 - [id number] - [id number] Implanted:Qty: 1 on 11/10/2019 by Yao Salcido MD at OR [facility] Left: Eye BAUSCH & LOMB 02/25/2024 [id number] / [id number] / [id number] Lens Intraoc 22.5 - [id number] - [id number] Implanted:Qty: 1 on 11/24/2019 by Yao Salcido MD at OR [facility] Right: Eye BAUSCH & LOMB 03/26/2024 [id number] / [id number] / documented as of this encounter Advance [...] the patient have Health Care Power of Operations Consultant? No Code Status History Code Status Date Activated Date Inactivated Comments Full Code 07/04/2020 10:14 AM 07/04/2020 10:34 AM Thi s order reflects the patients wishes and were consensually agreed upon. Question Answer Comments Discussion of Advance Directives occurred with: Patient Does the patient have a Living Will? No Does the patient have Health Care Power of Operations Consultant? No Care Teams Event Promoter Relationship Specialty Start Date End Date Keyur Olivares III, MD 200 [facility] [place] [address] PCP - General 08/23/01 documented as of this encounter
--- OUTSIDE RECORDS SUMMARY | 2023-03-25 02:48 | External Medical Summary | Summary of Care ---
Author Name Unknown Organization [facility] Address [address] [place] [address] Phone [phone] Care Team Providers Care System Dispatcher Name Role Phone Elise DIEGO MD, Keyur Doran Primary Care Provider [phone] Reason for Visit * Reason Onset Date Comments Advice 12/01/2022 Encounter Details Date Type Department Care Team Description 12/01/2022 Telephone Neurology [facility] [address] [place] [address] Services, Scheduling [address] [place] [address] Advice Allergies No known active allergiesdocumented as of this encounter (statuses as of 12/01/2022) Medications Medication Sig Dispensed Refills Start Date [...] as of this encounter (statuses as of 12/01/2022) Active Problems Problem Noted Date Hemiplegia affecting [...] as of this encounter (statuses as of 12/01/2022) Resolved Problems Problem Noted Date Resolved Date CEREBRAL PALSY NOS 06/20/2022 CHR BLOOD LOSS ANEMIA 11/07/2019 documented as of this encounter (statuses as of 12/01/2022) Immunizations Name Administration Dates Next Due COVID-19 mRNA, LNP-s, No Pre serve, 2-Dose Series ([employer]) 12/04/2021,03/16/2021,08/23/2020,08/02 Pneumococcal Conjugate Vacc, 13 Valent (Prevnar) 01/25/2020 Pneumococcal Polysaccharide PPV23 (Pneumovax) 10/17/2021 Seasonal Influenza, Quadriva lent Hd, 65+ Yrs 01/17/2021 Seasonal Influenza, Quadriva lent, No Preserve, 6 Mons & Above, IM 01/25/2020,05/29/2017 Seasonal Influenza, Quadriva lent, No Preserve, IM [...] encounter Miscellaneous Notes * Telephone Encounter - Mirta Whitman LPN - 12/01/2022 10:51 AM EDT Spoke with Gloria (pts sister), who states pt had a "light" seizure on Thursday. He was feeling much better shortly after. Denies injuries. They just wanted to make Scarlett aware. * Telephone Encounter - MANISHA Martines - 12/01/2022 8:34 AM EDT Please advise pt us asking to speak with Scarlett Long brother she had a light seizure documented in this encounter Plan of Treatment Upcoming Encounters Date Type Specialty Care Team Description 01/01/2023 Office Visit Family Medicine Keyur Olivares III, MD [address] [facility] [place] [address] 03/04/2023 Office Visit Podiatry Janeth Wu DPM [address] [place] [address] 04/03/2023 Office Visit Gastroenterology Kyle Jensen MD [address] [place] [address] 05/07/2023 Office Visit Neurology Scarlett Long PA-C [address] [place] [address] Health Maintenance Due Date Last Done Comments [...] Additional history exists Lipid Panel 07/08/2027 07/07/2022, 02/0 05/2017, 07/16/2012, Additional history exists Colonoscopy 10/30/2029 10/31/2019, 07/0 09/2019, 11/03/2017, Additional history exists Colorectal Cancer [...] this encounter Medical Devices Implanted Type Area Head Of Music Device Identifier Shelf Expiration Date Model / Serial / Lot Lens Intraoc 22.5 - [id number] - [id number] Implanted:Qty: 1 on 11/10/2019 by Yao Salcido MD at OR [facility] Left: Eye BAUSCH & LOMB 02/25/2024 [id number] / [id number] / [id number] Lens Intraoc 22.5 - [id number] - [id number] Implanted:Qty: 1 on 11/24/2019 by Yao Salcido MD at OR [facility] Right: Eye BAUSCH & LOMB 03/26/2024 [id number] / [id number] / documented as of this encounter Advance [...] the patient have Health Care Power of [place] Drafter? No Code Status History Code Status Date Activated Date Inactivated Comments Full Code 07/04/2020 10:14 AM 07/04/2020 10:34 AM Thi s order reflects the patients wishes and were consensually agreed upon. Question Answer Comments Discussion of Advance Directives occurred with: Patient Does the patient have a Living Will? No Does the patient have Health Care Power of Hull Drafter? No Care Teams System Dispatcher Relationship Specialty Start Date End Date Keyur Olivares III, MD 200 [facility] [place] [address] PCP - General 08/23/01 documented as of this encounter
--- OUTSIDE RECORDS SUMMARY | 2023-03-25 02:48 | External Medical Summary | Summary of Care ---
Author Name Unknown Organization [facility] Address [address] [address] Phone [phone] Care Team Providers Care Processing Engineer Name Role Phone Elise DIEGO MD, Keyur Doran Primary Care Provider [phone] Reason for Visit * Reason Comments Re-Check Encounter Details Date Type Department Care Team Description 01/01/2023 Office Visit Family Practice [facility] [place] 200 [facility] [place] [address] Keyur Olivares III, MD 200 [facility] [address] Crohn's disease without complication, unspecified gastrointestinal tract location (HCC)*; Spastic hemiplegic cerebral palsy (HCC); GENERALIZED CONVULSIVE EPILEPSY; 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 (32.4 mg). 180 Tablet 3 01/01/2023 Active PHENobarbital 30 MG Oral Tablet Take 1 Tablet by mouth in the morning and 1 Tablet before bedtime. (32.4 mg). 180 Tablet 1 08/05/2022 01/01/2023 Discontinued (Refill) documented as of this encounter (statuses as of 01/05/2023) Active Problems Problem Noted Date Hemiplegia affecting [...] as of this encounter (statuses as of 01/05/2023) Resolved Problems Problem Noted Date Resolved Date CEREBRAL PALSY NOS 06/20/2022 CHR BLOOD LOSS ANEMIA 11/07/2019 documented as of this encounter (statuses as of 01/05/2023) Immunizations Name Administration Dates Next Due COVID-19 mRNA, LNP-s, No Pre serve, 2-Dose Series ([employer]) 12/04/2021,03/16/2021,08/23/2020,08/02 Pneumococcal Conjugate Vacc, 13 Valent (Prevnar) [...] on file documented as of this encounter Last Filed Vital Signs Vital Sign Reading Time Taken Comments Blood Pressure 130/73 01/01/2023 9:32 AM EDT Pulse 64 01/01/2023 9:32 AM EDT Temperature 36 C (96.8 F) 01/01/2023 9:32 AM EDT Respiratory Rate 16 01/01/2023 9:32 AM EDT Oxygen Saturation - - Inhaled Oxygen Concentration - - Weight 76.2 kg (168 lb) 01/01/2023 9:32 AM EDT Height 168 cm (5' 6.14") 01/01/2023 9:32 AM EDT Body Mass Index 27 01/01/2023 9:32 AM EDT documented in this encounter Progress Notes * Keyur Olivares III, MD - 01/01/2023 9:51 AM EDT Subjective: Ike Mitchell is a 67 year old male. Chief Complaint Patient presents with Re-Check HPI: Follow-up regional enteritis seizure disorder cerebral palsy spastic hemiplegia neurology gastroenterology podiatry notes reviewed CBC diff sed rate CRP Keppra primidone comprehensive metabolic panel vitamin-D levels reviewed neurology cut back meds had 1 seizure when it was very hot humid no bleeding urine or bowels denies chest pain shortness a breath no swelling of his ankles try area face will be using moisturizer PMH: Patient Active Problem List Diagnosis Code GENERALIZED CONVULSIVE EPILEPSY; WITHOUT MENTION OF INTRACTABLE EPILEPSY G40.309 Mitral valve disorder I05.9 Regional enteritis (HCC) K50.90 ADVANCE DIRECTIVE INFORMATION Gastroesophageal reflux disease without esophagitis K21.9 Thyroid lump E07.9 Primary open-angle glaucoma, bilateral, mild stage H40.1131 Spastic hemiplegic cerebral palsy (HCC) G80.2 Hemiplegia affecting right dominant side (HCC) G81.91 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 Adjustment disorder F43.20 Current Outpatient Medications Medication Sig Dispense Refill PHENobarbital 30 MG Oral Tablet Take 1 Tablet by mouth in the morning and 1 Tablet before bedtime. (32.4 mg). 180 Tablet 3 Fish Oil 1000 MG Oral Capsule Take by mouth 1 Capsule in the morning AND 1 Capsule before bedtime. 180 Capsule 3 Multivitamin Adult (Minerals) Oral Tablet 1 TABLET DAILY 90 Tablet 1 sulfaSALAzine 500 MG Oral Tablet (Azulfidine) Take 2 Tablets by mouth in the morning and 2 Tablets at noon and 2 Tablets before bedtime. TAKE 2 TABLETS BY MOUTH IN THE MORNING THEN 2 TABLETS AT NOON THEN 2 TABLETS BEFORE BEDTIME. 540 Tablet 11 Primidone 250 MG Oral Tablet (Mysoline) Take 1 tablet in the morning and 1 tablet in the evening 180 Tablet 3 levETIRAcetam 750 MG Oral Tablet TAKE 1 TABLET BY MOUTH EVERY DAY IN THE MORNING AND BEFORE [id number] Tablet 3 No current facility-administered medications for this visit. Review of patient's allergies indicates: No Known Allergies Past Medical History: Diagnosis Date Anemia due to chronic blood loss Anemia, Chronic Cerebral palsy (HCC) Cerebral Palsy Fracture of ankle, closed Generalized convulsive epilepsy without intractable epilepsy (HCC) Seizures, Epileptic Mitral valve disorder Mitral Valve Prolapse Regional enteritis (HCC) Crohn's Disease Past Surgical History: Procedure Laterality Date BACK/FLANK SUBQ TUMOR REMOVAL, 3 CM OR MORE N/A 07/04/2020 EXCISION BACK/FLANK SUBQ TUMOR, 3 CM OR MORE performed by Meggan Mccormick MD at OR [facility] COLONOSCOPY W/ BIOPSY (RECTUM) 09/11/2006 mild inflammation COLONOSCOPY, DIAGNOSTIC (RECTUM) 11/15/2015 mild-mod inflammation/[facility] COLONOSCOPY, DIAGNOSTIC (RECTUM) 11/03/2017 normal bx/COLONOSCOPY FLEXIBLE PROXIMAL DIAGNOSTIC performed by Kyle Jensen MD at ENDOSCOPY [facility] COLONOSCOPY, DIAGNOSTIC (RECTUM) 10/31/2019 internal hemorrhoids/biopsies normal/COLONOSCOPY FLEXIBLE PROXIMAL DIAGNOSTIC performed by Kyle Jensen MD at ENDOSCOPY [facility] RELIEVE INNER EYE PRESSURE Left 11/10/2019 left GONIOTOMY performed by Yao Salcido MD at [facility] RELIEVE INNER EYE PRESSURE Right 11/24/2019 right GONIOTOMY performed by Yao Salcido MD at [facility] RELIEVE INNER EYE PRESSURE Bilateral REMOVE CATARACT, INSERT LENS PROSTH Left 11/10/2019 left EXTRACAPSULAR CATARACT REMOVAL WITH INTRAOCULAR LENS performed by Yao Salcido MD at [facility] REMOVE CATARACT, INSERT LENS PROSTH Right 11/24/2019 right EXTRACAPSULAR CATARACT REMOVAL WITH INTRAOCULAR LENS performed by Yao Salcido MD at [facility] TENDON TRANSFER WITH GRAFT, THUMB Objective: The patient is a 67 year old male BP 130/73 | Pulse 64 | Temp 36 C (96.8 F) | Resp 16 | Ht 1.68 m (5' 6.14") | Wt 76.2 kg (168 lb) | BMI 27.00 kg/m | BSA 1.89 m General: alert, healthy, and no distress Eye Exam: PERRLA, extraocular movements intact, conjunctiva are pink and non- injected, sclera clear Oropharynx: no exudate, no erythema, lips, buccal mucosa, and tongue normal, and mucous membranes are moist Heart: regular rate & rhythm, no murmur, and no gallops Lungs: lungs clear to auscultation, no rhonchi rales rubs wheezes Extremities: no edema, no clubbing, no cyanosis ASSESSMENT: K50.90 Crohn's disease without complication, unspecified gastrointestinal tract location (HCC) (primary encounter diagnosis) G80.2 Spastic hemiplegic cerebral palsy (HCC) G40.309 GENERALIZED CONVULSIVE EPILEPSY; WITHOUT MENTION OF INTRACTABLE EPILEPSY PLAN: Continue present meds discuss vaccinations shingles and flu does not wish to get these call if problems Total time 33 minutes Follow up in 6 month(s). Keyur Olivares III, MD documented in this encounter Plan of Treatment Upcoming Encounters Date Type Specialty Care Team Description 03/04/2023 Office Visit Podiatry Janeth Wu, DPM [address] [facility] [place] [id number] 04/03/2023 Office Visit Gastroenterology Kyle Jensen MD [address] [place] [address] 05/07/2023 Office Visit Neurology Scarlett Long PA-C [address] [facility] [place] [address] 07/10/2023 Office Visit Family Medicine Keyur Olivares III, MD 200 [facility] [address] Health Maintenance Due Date Last Done Comments Zoster Vaccines (1 of 2) 1973 Cologuard 1999 Fecal Occult Blood Test 1999 Sigmoidoscopy 1999 COVID-19 Vaccine (5 - Pfizer risk series) 01/29/2022 12/04/2021, 03/16/2021, 08/23/2020, Additional history exists Depression Screening 10/17/2022 10/17/2021 Influenza Vaccine (FLU shot) (#1) [...] this encounter Medical Devices Implanted Type Area Axminster Rug Setter Device Identifier Shelf Expiration Date Model / Serial / Lot Lens Intraoc 22.5 - [id number] - [id number] Implanted:Qty: 1 on 11/10/2019 by Yao Salcido MD at OR [facility] Left: Eye BAUSCH [employer] LOMB 02/25/2024 [id number] / [id number] / [id number] Lens Intraoc 22.5 - [id number] - [id number] Implanted:Qty: 1 on 11/24/2019 by Yao Salcido MD at OR [facility] Right: Eye BAUSCH & LOMB 03/26/2024 [id number] / [id number] / documented as of this encounter Visit Diagnoses Diagnosis Crohn's disease without complication, unspecified gastrointestinal tract location (HCC)- Primary Spastic hemiplegic cerebral palsy (HCC) Congenital hemiplegia GENERALIZED CONVULSIVE EPILEPSY; WITHOUT MENTION OF INTRACTABLE EPILEPSY Generalized convulsive epilepsy without mention of intractable epilepsy documented in this encounter Advance Directives Latest Code Status on File Code Status Date Activated Date Inactivated Comments Full Code 07/04/2020 10:34 AM 07/04/2020 3:04 PM This order reflects the patients wishes and were consensually agreed upon. Question Answer Comments Discussion of Advance Directives occurred with: Patient Does the patient have a Living Will? No Does the patient have Health Care Power of Senior Mainframe Programmer Analyst? No Code Status History Code Status Date Activated Date Inactivated Comments Full Code 07/04/2020 10:14 AM 07/04/2020 10:34 AM Thi s order reflects the patients wishes and were consensually agreed upon. Question Answer Comments Discussion of Advance Directives occurred with: Patient Does the patient have a Living Will? No Does the patient have Health Care Power of Senior Mainframe Programmer Analyst? No Care Teams Processing Engineer Relationship Specialty Start Date End Date Keyur Olivares III, MD [address] [place] [address] PCP - General 08/23/01 documented as of this encounter
--- OUTSIDE RECORDS SUMMARY | 2023-03-25 02:48 | External Medical Summary | Summary of Care ---
Author Name Unknown Organization [facility] Address [address] [place] [address] Phone [phone] Care Team Providers Care Retail Key Holder Name Role Phone Elise DIEGO MD, Keyur Doran Primary Care Provider [phone] Reason for Visit * Reason Onset Date Comments Advice 12/01/2022 Encounter Details Date Type Department Care Team Description 12/01/2022 Telephone Neurology [facility] [address] [place] [address] Services, Scheduling [address] [place] [address] Advice Allergies No known active allergiesdocumented as [...] mRNA, LNP-s, No Pre serve, 2-Dose Series ([employer]ulse[employer]) 12/04/2021,03/16/2021,08/23/2020,08/02 Pneumococcal Conjugate Vacc, 13 Valent (Prevnar) [...] encounter Miscellaneous Notes * Telephone Encounter - Scarlett Long PA-C - 12/01/2022 11:27 AM EDT Spoke with Beverley. On Thursday, Ike went to a baseball game which he was very excited about. Unclear how much sleep he had the night before. States he ate cereal that morning but nothing else the rest of the day. Took his medications although Beverley states he takes them at variable times. Was at the baseball game and "went blank" started saying "no" repeatedly. Lasted less than 1 minute. [place] fine afterwards. No shaking, no LOC. Last time this happened was years ago. Recent levels within past few weeks are within normal limits. Taking Keppra 750mg BID, primidone 250mg BID and phenobarbital 30mg BID. Advised to monitor. * Telephone Encounter - Mirta Whitman LPN [...] Description 01/01/2023 Office Visit Family Medicine Elise III, Keyur Doran MD 200 [place] [address] 03/04/2023 Office Visit Podiatry Janeth Wu DPM [address] [facility] [place] [address] 04/03/2023 Office Visit Gastroenterology Kyle Jensen MD [address] [place] [address] 05/07/2023 Office Visit Neurology Scarlett Long PA-C [address] [facility] [place] [address] Health Maintenance Due Date [...] Additional history exists Lipid Panel 07/08/2027 07/07/2022, 0 05/2017, 07/16/2012, Additional history exists Colonoscopy 10/30/2029 10/31/2019, 0 09/2019, 11/03/2017, Additional history exists Colorectal Cancer [...] this encounter Medical Devices Implanted Type Area Integrity Assessor Device Identifier Shelf Expiration Date Model / Serial / Lot Lens Intraoc 22.5 - [id number] - [id number] Implanted:Qty: 1 on 11/10/2019 by Yao Salcido MD at OR [facility] Left: Eye BAUSCH & LOMB 02/25/2024 [id number] / [id number] / [id number] Lens Intraoc 22.5 - [id number] - [id number] Implanted:Qty: 1 on 11/24/2019 by Yao Salcido MD at OR [facility] Right: Eye BAUSCH & LOMB 03/26/2024 [id number] / [id number] / documented as of this encounter Advance [...] the patient have Health Care Power of Transmission Specialist? No Code Status History Code Status Date Activated Date Inactivated Comments Full Code 07/04/2020 10:14 AM 07/04/2020 10:34 AM Thi s order reflects the patients wishes and were consensually agreed upon. Question Answer Comments Discussion of Advance Directives occurred with: Patient Does the patient have a Living Will? No Does the patient have Health Care Power of Transmission Specialist? No Care Teams Retail Key Holder Relationship Specialty Start Date End Date Keyur Olivares III, MD [address] [place] [address], [place] [address] PCP - General 08/23/01 documented as of this encounter
--- OUTSIDE RECORDS SUMMARY | 2023-03-25 02:48 | External Medical Summary | Summary of Care ---
Author Name Unknown Organization [facility] Address [address] [place] [address] Phone [phone] Care Team Providers Care Film Archivist Name Role Phone Elise DIEGO MD, Keyur Doran Primary Care Provider [phone] Reason for Visit * Reason Comments Follow Up Nail care Encounter Details Date Type Department Care Team (Late st Contact Info) Description 03/04/2023 10:00 AM EST Office Visit Podiatry [facility] [address] [place], [place] [phone] Janeth Wu, KAUSHIK [address] [place], [place] [id number] Encounter for other procedures for purposes other than remedying health state* Allergies No known active allergiesdocumented as of [...] mRNA, LNP-s, No Pre serve, 2-Dose Series ([employer]) 12/04/2021,03/16/2021,08/23/2020,08/02 Pneumococcal Conjugate Vacc, 13 Valent (Prevnar) [...] on file documented as of this encounter Progress Notes * Janeth Wu DPM - 03/04/2023 9:37 AM EST Podiatry Established Note [facility] Name: Ike Mitchell : 1955 Date: 03/04/2023 REASON FOR VISIT: foot care SUBJECTIVE: This patient is a 68 year old male who presents today for nail trimming. He reports issues with the left first toenail - this grows upwards and has caused issues with his shoe. 01/01/[address] Olivares. Past Medical History: Diagnosis Date Anemia due to chronic blood loss Anemia, Chronic Cerebral palsy (HCC) Cerebral Palsy Fracture of ankle, closed Generalized convulsive epilepsy without intractable epilepsy (HCC) Seizures, Epileptic Mitral valve disorder Mitral Valve Prolapse Regional enteritis (HCC) Crohn's Disease ALLERGIES: Review of patient's allergies indicates: No Known Allergies REVIEW OF SYSTEMS: CONSTITUTIONAL: No fevers, sweats, or chills FOCUSED PODIATRIC EXAM: Vascular: Pedal pulses palpable including dorsalis pedis and posterior tibial artery at 2/4 bilaterally. Capillary refill time is within normal limits to all toes. Non pitting edema noted to both lower legs. No warmth. Neurologic: Sensation (light touch) intact to the bilateral lower extremities. No hypersensitivity. Dermatological: Toenails 1-5 bilaterally are elongated, thickened, and mildly discolored. Musculoskeletal: No pain reported with palpation of the bilateral foot. DIAGNOSTIC STUDIES: None ASSESSMENT: 1. Encounter for other procedures for purposes other than remedying health state PLAN: Procedure: After mild cleansing and drying of feet, toenails 1-5 bilaterally were trimmed to appropriate length with nail cutters. Patient tolerated well and noted improvement following procedure. Follow up: 3 months Janeth Wu DPM documented in this encounter Nursing Notes * Maritza Vergara LPN - 03/04/2023 9:30 AM EST Pt presents for routine nail care, no pain in feet. documented in this encounter Plan of Treatment Upcoming Encounters Date Type Department Care Team (Late st Contact Info) Description 04/03/2023 10:20 AM EST Office Visit Gastroenterology, [facility] [address] [place] [address] Kyle Jensen MD 132 [facility] [place] [address] 05/07/2023 9:00 AM EST Office Visit [facility] [address] Scarlett Long PA-C [facility] [place] [address] 06/10/2023 10:00 AM EST Office Visit Podiatry [facility] [address] [place] [address] Janeth Wu, DPStoney 400 [facility] [place] [address] 07/10/2023 9:40 AM EDT Office Visit [facility] [address] [place] [address] Keyur Olivares III, MD [address] [place] [address] Health Maintenance Due Date Last Done Comments Zoster Vaccines (1 of 2) 1973 Cologuard 1999 Fecal Occult Blood Test 1999 Sigmoidoscopy 1999 Depression Screening 10/17/2022 10/17/2021 COVID-19 Vaccine (2022- season) 2022 12/04/2021, 03/16/2021, 08/23/2020, Additional history exists Influenza Vaccine (FLU shot) (#1) 2022 02/08/2021, 01/17/2021, 01/25/2020, Additional history exists DTaP,Tdap,and Td Vaccines (3 - Td or Tdap) 08/17/2025 08/18/2015, 10/22/2011, 01/13/2004 Diabetes Screening 11/14/2025 11/14/2022, 0 08/22/2021, 04/25/2021, Additional history exists Lipid Panel 07/08/2027 07/07/2022, 02/0 05/2017, 07/16/2012, Additional history exists Colonoscopy 10/30/2029 10/31/2019, 070 09/2019, 11/03/2017, Additional history exists Colorectal Cancer [...] this encounter Medical Devices Implanted Type Area Frame Operator Device Identifier Shelf Expiration Date Model / Serial / Lot Lens Intraoc 22.5 - [id number] - [id number] Implanted:Qty: 1 on 11/10/2019 by Yao Salcido MD at OR [facility] Left: Eye BAUSCH & LOMB 02/25/2024 [id number] / [id number] / [id number] Lens Intraoc 22.5 - [id number] - [id number] Implanted:Qty: 1 on 11/24/2019 by Yao Salcido MD at OR [facility] Right: Eye BAUSCH & LOMB 03/26/2024 [id number] / [id number] / documented as of this encounter Visit Diagnoses Diagnosis Encounter for other procedures for purposes other than remedying health state- Primary documented in this encounter Advance Directives Latest Code Status on File Code Status Date Activated Date Inactivated Comments Full Code 07/04/2020 10:34 AM 07/04/2020 3:04 PM This order reflects the patients wishes and were consensually agreed upon. Question Answer Comments Discussion of Advance Directives occurred with: Patient Does the patient have a Living Will? No Does the patient have Health Care Power of Environmental Protection Forester? No Code Status History Code Status Date Activated Date Inactivated Comments Full Code 07/04/2020 10:14 AM 07/04/2020 10:34 AM Thi s order reflects the patients wishes and were consensually agreed upon. Question Answer Comments Discussion of Advance Directives occurred with: Patient Does the patient have a Living Will? No Does the patient have Health Care Power of Environmental Protection Forester? No Care Teams Film Archivist Relationship Specialty Start Date End Date Keyur Olivares III, MD [address] [place] [address] PCP - General 08/23/01 documented as of this encounter
--- OUTSIDE RECORDS SUMMARY | 2023-03-25 02:49 | External Medical Summary ---
Author Name Unknown Address Unknown Organization [id number]:[facility] [place] [address] Laboratory Report Ordering Provider Test Date Status ISIAH MAYA 11/14/2022 08:09:41 Final Observation Date Value Abnormality Reference (Units ) Status SYNC LEUKOCYTES IN BLOOD BY AUTOMATED COUNT 11/14/2022 08:09:41 6.47 4.00-10.80 (K/uL) Final Segs 11/14/2022 08:09:41 69.2 40.0-75.0 (%) Final Lymphs % 11/14/2022 08:09:41 20.1 18.0-42.0 (%) Final Monos 11/14/2022 08:09:41 8.8 1.0-11.0 (%) Final Eosinophils 11/14/2022 08:09:41 1.4 0.0-6.0 (%) Final Basos 11/14/2022 08:09:41 0.5 0.0-2.0 (%) Final Absolute Segs 11/14/2022 08:09:41 4.48 1.80-7.70 (K/uL) Final Lymphs, absolute 11/14/2022 08:09:41 1.30 1.00-4.80 (K/ul) Final Monos, Abs 11/14/2022 08:09:41 0.57 0.00-1.10 (K/uL) Final Eos, Abs 11/14/2022 08:09:41 0.09 0.00-0.70 (K/uL) Final Basos, Abs 11/14/2022 08:09:41 0.03 0.00-0.20 (K/uL) Final Performing Location [facility] [address]
--- OUTSIDE RECORDS SUMMARY | 2023-03-25 02:49 | External Medical Summary | Summary of Care ---
Author Name Unknown Organization [facility] Address [address] [place] [address] Phone [phone] Care Team Providers Care Placement Coordinator Name Role Phone Elise DIEGO MD, Keyur Doran Primary Care Provider [phone] Reason for Visit * Reason Comments Follow Up Nail care Encounter Details Date Type Department Care Team Description 11/27/2022 Office Visit Podiatry [facility] [address] [place], [place] [phone] Janeth Wu, DPStoney [address] [place] [address] Encounter for other procedures for purposes other than remedying health state* Allergies No known active allergiesdocumented as of this encounter (statuses as of 11/27/2022) Medications Medication Sig Dispensed Refills Start Date [...] as of this encounter (statuses as of 11/27/2022) Active Problems Problem Noted Date Hemiplegia affecting [...] as of this encounter (statuses as of 11/27/2022) Resolved Problems Problem Noted Date Resolved Date CEREBRAL PALSY NOS 06/20/2022 CHR BLOOD LOSS ANEMIA 11/07/2019 documented as of this encounter (statuses as of 11/27/2022) Immunizations Name Administration Dates Next Due COVID-19 mRNA, LNP-s, No Pre serve, 2-Dose Series ([employer]) 12/04/2021,03/16/2021,08/23/2020,08/02 Pneumococcal Conjugate Vacc, 13 Valent (Prevnar) [...] Progress Notes * Janeth Wu DPM - 11/27/2022 11:57 AM EDT Podiatry Established Note [facility] Name: Ike Mitchell : 1955 Date: 11/27/2022 REASON FOR VISIT: foot care SUBJECTIVE: This patient is a 67 year old male who presents today for nail trimming. 06/19/[address] Olivares. Past Medical [...] Nursing Notes * Maritza Vergara LPN - 11/27/2022 9:44 AM EDT Pt presents for routine nail care, having some pain in his great toenails, requesting they be 'ground down'. documented in this encounter Plan of Treatment Upcoming Encounters Date Type Specialty Care Team Description 01/01/2023 Office [facility] [place] [facility] [address] 03/04/2023 Office Visit Podiatry Janeth Wu DPM [address] [facility] [place] [address] 04/03/2023 Office Visit Gastroenterology Kyle Jensen MD [address] [place] [address] 05/07/2023 Office Visit Neurology Scarlett Long PA-C [address] [facility] [place] [address] Health Maintenance Due Date Last Done Comments [...] this encounter Medical Devices Implanted Type Area Veterinary Poultry Inspector Device Identifier Shelf Expiration Date Model / Serial / Lot Lens Intraoc 22.5 - [id number] - [id number] Implanted:Qty: 1 on 11/10/2019 by Yao Salcido MD at OR [facility] Left: Eye BAUSCH & LOMB 02/25/2024 [id number] / [id number] / [id number] Lens Intraoc 22.5 - [id number] - [id number] Implanted:Qty: 1 on 11/24/2019 by Yao Salcido MD at OR [facility] Right: Eye BAUSCH & LOMB 03/26/2024 [id number] / [id number] / documented as of this encounter Visit [...] the patient have Health Care Power of Bilingual Medical Assistant? No Code Status History Code Status Date Activated Date Inactivated Comments Full Code 07/04/2020 10:14 AM 07/04/2020 10:34 AM Thi s order reflects the patients wishes and were consensually agreed upon. Question Answer Comments Discussion of Advance Directives occurred with: Patient Does the patient have a Living Will? No Does the patient have Health Care Power of Bilingual Medical Assistant? No Care Teams Placement Coordinator Relationship Specialty Start Date End Date Keyur Olivares III, MD [address] [place] [address] PCP - General 08/23/01 documented as of this encounter
--- OUTSIDE RECORDS SUMMARY | 2023-03-25 02:49 | External Medical Summary | Summary of Care ---
Author Name Unknown Organization [facility] Address [address] [facility] [place] [address] Phone [phone] Care Team Providers Care Theater Projectionist Name Role Phone Elise DIEGO MD, Keyur Doran Primary Care Provider [phone] Reason for Visit * Reason Comments Outpatient Testing Encounter Details Date Type Department Care Team Description 11/14/2022 Laboratory Laboratory [facility] [address] [place] [address] [facility] [address] [place], [place] [address] Crohn's disease without complication, unspecified gastrointestinal tract location (HCC); Generalized convulsive epilepsy without intractable epilepsy (HCC) Allergies No known active allergiesdocumented as of this encounter (statuses as of 11/14/2022) Medications Medication Sig Dispensed Refills Start Date End Date Status Fish Oil 1000 MG Oral Capsule Take by mouth 1 Capsule in the morning AND 1 Capsule before bedtime. 180 Capsule 3 05/29/2021 Active Multivitamin Adult (Minerals) Oral Tablet 1 TABLET DAILY 90 Tablet 1 05/29/2021 Active levETIRAcetam 750 MG Oral TabletIndications:Ge neralized convulsive epilepsy without intractable epilepsy (HCC) Take by mouth 1 Tablet in the morning AND 1 Tablet before bedtime. 180 Tablet 3 10/17/2021 Active PHENobarbital 30 MG Oral Tablet Take [...] the evening 180 Tablet 3 11/04/2022 Active documented as of this encounter (statuses as of 11/14/2022) Active Problems Problem Noted Date Hemiplegia affecting [...] as of this encounter (statuses as of 11/14/2022) Resolved Problems Problem Noted Date Resolved Date CEREBRAL PALSY NOS 06/20/2022 CHR BLOOD LOSS ANEMIA 11/07/2019 documented as of this encounter (statuses as of 11/14/2022) Immunizations Name Administration Dates Next Due COVID-19 mRNA, LNP-s, No Pre serve, 2-Dose Series ([employer]) 12/04/2021,03/16/2021,08/23/2020,08/02 Pneumococcal Conjugate Vacc, 13 Valent (Prevnar) [...] Encounters Date Type Specialty Care Team Description 11/27/2022 Office Visit Podiatry Janeth Wu DPM [address] [facility] [place] [phone] 01/01/2023 Office Visit Family Medicine ColeKeyur hastings III, MD [address] [facility] [address] 04/03/2023 Office Visit Gastroenterology Kyle Jensen MD [address] [place] [address] 05/07/2023 Office Visit Neurology Scarlett Long PA-C [address] [facility] [place] [address] Pending Results Name Type Priority Associated Diagnoses Date /Time ERYTHROCYTE SEDIMENTATION RATE (ESR) Lab Routine Crohn's disease without complication, unspecified gastrointestinal tract location (HCC) 11/14/2022 8:09 AM EDT CRP (INFLAMMATORY MARKER) Lab Routine Crohn's disease without complication, unspecified gastrointestinal tract location (HCC) 11/14/2022 8:09 AM EDT LEVETIRACETAM LEVEL Lab Routine Generalized convulsive epilepsy without intractable epilepsy (HCC) 11/14/2022 8:09 AM EDT 25-HYDROXY VITAMIN D Lab Routine Generalized convulsive epilepsy without intractable epilepsy (HCC) 11/14/2022 8:09 AM EDT PRIMIDONE AND PHENOBARBITAL Lab Routine Generalized convulsive epilepsy without intractable epilepsy (HCC) 11/14/2022 8:09 AM EDT COMPREHENSIVE METABOLIC PANEL Lab Routine Generalized convulsive epilepsy without intractable epilepsy (HCC) 11/14/2022 8:09 AM EDT BILIRUBIN, DIRECT Lab Routine Crohn's disease without complication, unspecified gastrointestinal tract location (HCC) 11/14/2022 8:09 AM EDT Health Maintenance Due Date Last Done Comments Zoster Vaccines (1 of 2) 1973 Cologuard 1999 Fecal Occult Blood Test 1999 Sigmoidoscopy 1999 COVID-19 Vaccine (5 - Pfizer risk series) 01/29/2022 12/04/2021, 03/16/2021, 08/23/2020, Additional history exists Depression Screening, Annual for Pts 12 and Over 10/17/2022 10/17/2021 Influenza Vaccine (FLU shot) (#1) 2022 02/08/2021, 01/17/2021, 01/25/2020, Additional history exists Diabetes Screening 08/22/2024 08/22/2021, 1 , 04/18/2021, Additional history exists DTaP,Tdap,and Td Vaccines (3 - Td or Tdap) 08/17/2025 08/18/2015, 10/22/2011, 01/13/2004 Lipid Panel 07/08/2027 07/07/2022, 05/2017, 07/16/2012, Additional [...] this encounter Medical Devices Implanted Type Area Home Performance Laborer Device Identifier Shelf Expiration Date Model / Serial / Lot Lens Intraoc 22.5 - [id number] - [id number] Implanted:Qty: 1 on 11/10/2019 by Yao Salcido MD at OR [facility] Left: Eye BAUSCH & LOMB 02/25/2024 [id number] / [id number] / [id number] Lens Intraoc 22.5 - [id number] - [id number] Implanted:Qty: 1 on 11/24/2019 by Yao Salcido MD at OR [facility] Right: Eye BAUSCH & LOMB 03/26/2024 [id number] / [id number] / documented as of this encounter Procedures Procedure Name Priority Date/Time Associated Diagnosis Comments DIFFERENTIAL, AUTOMATED Routine 11/14/2022 8:09 AM EDT Crohn's disease without complication, unspecified gastrointestinal tract location (HCC) CBC WITH WBC DIFFERENTIAL Routine 11/14/2022 8:09 AM EDT Crohn's disease without complication, unspecified gastrointestinal tract location (HCC) CBC Routine 11/14/2022 8:09 AM EDT Crohn's disease without complication, unspecified gastrointestinal tract location (HCC) documented in this encounter Results * DIFFERENTIAL, AUTOMATED (11/14/2022 8:09 AM EDT) WBC 6.47 4.00 - 10.80 K/uL 11/14/2022 8:20 AM EDT LABORATORY [facility] 56-02 Neutrophils % 69.2 40.0 - 75.0 % 11/14/2022 8:20 AM EDT LABORATORY [facility] 56-02 Lymphocytes % 20.1 18.0 - 42.0 % 11/14/2022 8:20 AM EDT LABORATORY [facility] 56-02 Monocytes % 8.8 1.0 - 11.0 % 11/14/2022 8:20 AM EDT [facility] 56 Eosinophils % 1.4 0.0 - 6.0 % 11/14/2022 8:20 AM EDT [facility] 56 Basophils % 0.5 0.0 - 2.0 % 11/14/2022 8:20 AM EDT [facility] 56 Absolute Neutrophils 4.48 1.80 - 7.70 K/uL 11/14/2022 8:20 AM EDT [facility] 56 Absolute Lymphocytes 1.30 1.00 - 4.80 K/ul 11/14/2022 8:20 AM EDT [facility] 56 Absolute Monocytes 0.57 0.00 - 1.10 K/uL 11/14/2022 8:20 AM EDT [facility] 56 Absolute Eosinophils 0.09 0.00 - 0.70 K/uL 11/14/2022 8:20 AM EDT [facility] 56 Absolute Basophils 0.03 0.00 - 0.20 K/uL 11/14/2022 8:20 AM EDT [facility] 56 Blood Venous blood specimen / Unknown Venipuncture / Unknown 11/14/2022 8:09 AM EDT 11/14/2022 8:09 AM EDT Kyle Jensen MD LAB BLOOD ORDERABLES [facility] [address] [place] [address] * (ABNORMAL) CBC (11/14/2022 8:09 AM EDT) WBC 6.47 4.00 - 10.80 K/uL 11/14/2022 8:20 AM EDT [facility] 56 RBC 4.33 4.50 - 5.25 M/uL 11/14/2022 8:20 AM EDT [facility] 56 HGB 13.4(L) 14.0 - 16.8 g/dL 11/14/2022 8:20 AM EDT [facility] 56 HCT 43.4 40.0 - 48.4 % 11/14/2022 8:20 AM EDT [facility] 56 MCV 100.2 82.0 - 99.5 fL 11/14/2022 8:20 AM EDT [facility] 56 MCH 30.9 27.0 - 34.0 pg 11/14/2022 8:20 AM EDT [facility] 56 MCHC 30.9 32.0 - 36.0 g/dL 11/14/2022 8:20 AM EDT [facility] 56 RDW 13.1 11.5 - 15.5 % 11/14/2022 8:20 AM EDT [facility] 56 PLT 199 140 - 400 K/uL 11/14/2022 8:20 AM T [place] [address] MPV 10.3 6.6 - 11.1 fL 11/14/2022 8:20 AM EDT [facility] 56 Blood Venous blood specimen / Unknown Venipuncture / Unknown 11/14/2022 8:09 AM EDT 11/14/2022 8:09 AM EDT Kyle Jensen MD LAB BLOOD ORDERABLES [place] [address] [place] [address] documented in this encounter Visit Diagnoses Diagnosis Crohn's disease without complication, unspecified gastrointestinal tract location (HCC) Generalized convulsive epilepsy without intractable epilepsy (HCC) Generalized convulsive epilepsy without mention of intractable [...] the patient have Health Care Power of Aged Or Disabled Carer? No Code Status History Code Status Date Activated Date Inactivated Comments Full Code 07/04/2020 10:14 AM 07/04/2020 10:34 AM Thi s order reflects the patients wishes and were consensually agreed upon. Question Answer Comments Discussion of Advance Directives occurred with: Patient Does the patient have a Living Will? No Does the patient have Health Care Power of Aged Or Disabled Carer? No Care Teams Theater Projectionist Relationship Specialty Start Date End Date Elise JOHNATHON, Keyur Doran MD [address] [facility] [place] [address] PCP - General 08/23/01 documented as of this encounter
--- OUTSIDE RECORDS SUMMARY | 2023-03-25 02:49 | External Medical Summary ---
Author Name Unknown Address Unknown Organization [id number]:[facility]ATORY [facility] [place] [address] [place] [address] Laboratory Report Ordering Provider Test Date Status FRANCESCOISIAH 11/14/2022 08:09:41 Final Observation Date Value Abnormality Reference (Units ) Status Erythrocyte sedimentation rate by Photometric method 11/14/2022 08:09:41 5 <20 (mm/hour) Final Performing Location LAB[facility] [place] [address] [place] [address]
--- OUTSIDE RECORDS SUMMARY | 2023-03-25 02:49 | External Medical Summary ---
Author Name Unknown Address Unknown Organization K01:LABORATORY [facility] [place] - [address] [place] [address] Laboratory Report Ordering Provider Test Date Status REAGAN JOSE 11/14/2022 08:09:41 Final Observation Date Value Abnormality Reference (Units ) Status Levetiracetam level 11/14/2022 08:09:41 13 3-63 (ug/mL) Final Performing Location LABORATORY [facility] - [address] [place] [address]
--- OUTSIDE RECORDS SUMMARY | 2023-03-25 02:49 | External Medical Summary ---
Author Name Unknown Address Unknown Organization K01:[facility] [place] [address] [facility] [place] [address] Laboratory Report Ordering Provider Test Date Status ISIAH MAYA 11/14/2022 08:09:41 Final Observation Date Value Abnormality Reference (Units ) Status CRP, low-sensitivity 11/14/2022 08:09:41 14 Above high normal <=5 (mg/L) Final Performing Location LABORATORY C - [address] [place] [address]
--- OUTSIDE RECORDS SUMMARY | 2023-03-25 02:49 | External Medical Summary ---
Author Name Unknown Address Unknown Organization K09:[facility] [place] [address] Laboratory Report Ordering Provider Test Date Status ISIAH MAYA 11/14/2022 08:09:41 Final Observation Date Value Abnormality Reference (Units ) Status Bilirubin, Direct 11/14/2022 08:09:41 <0.2 0. 0-0.3 (mg/dL) Final Performing Location [facility] [place] [address]
--- OUTSIDE RECORDS SUMMARY | 2023-03-25 02:49 | External Medical Summary | Summary of Care ---
Author Name Unknown Organization [facility] Address [address] [facility] [place] [address] Phone [phone] Care Team Providers Care Network Lead Name Role Phone Elise DIEGO MD, Keyur Doran Primary Care Provider [phone] Reason for Visit * Reason Comments Return Neuro Encounter Details Date Type Department Care Team Description 11/04/2022 Office Visit Neurology [facility] [address] [place] [address] Scarlett Long PA-C [address] [facility] [place] [address] Generalized convulsive epilepsy without intractable epilepsy (HCC)* Allergies No known active allergiesdocumented as of this encounter (statuses as of 11/04/2022) Medications Medication Sig Dispensed Refills Start Date End Date Status Fish Oil 1000 MG Oral Capsule Take by mouth 1 Capsule in the morning AND 1 Capsule before bedtime. 180 Capsule 3 05/29/2021 Active Multivitamin Adult (Minerals) Oral Tablet 1 TABLET DAILY 90 Tablet 1 05/29/2021 Active levETIRAcetam 750 MG Oral TabletIndications :Generalized [...] the evening 180 Tablet 3 11/04/2022 Active Primidone 250 MG Oral Tablet (Mysoline)Indicat ions:Generalized convulsive epilepsy without intractable epilepsy (HCC) Take by mouth 2 Tablets in the morning AND 2 Tablets before bedtime. 360 Tablet 3 10/17/2021 3 Discontinued documented as of this encounter (statuses as of 11/04/2022) Active Problems Problem Noted Date Hemiplegia affecting [...] as of this encounter (statuses as of 11/04/2022) Resolved Problems Problem Noted Date Resolved Date CEREBRAL PALSY NOS 06/20/2022 CHR BLOOD LOSS ANEMIA 11/07/2019 documented as of this encounter (statuses as of 11/04/2022) Immunizations Name Administration Dates Next Due COVID-19 mRNA, LNP-s, No Pre serve, 2-Dose Series ([employer]) 12/04/2021,03/16/2021,08/23/2020,08/02 Pneumococcal Conjugate Vacc, 13 Valent (Prevnar) [...] Date Smoking Tobacco: Never Smokeless Tobacco: Former Tobacco Cessation:Counseling Given: Not Answered Comments:chewed a few yrs ago Alcohol Use Standard Drinks/Week Comments No 0 [...] Sign Reading Time Taken Comments Blood Pressure 146/70 11/04/2022 10:12 AM EDT Pulse 72 11/04/2022 10:12 AM EDT Temperature 36.1 C (97 F) 11/04/2022 10:12 AM EDT Respiratory Rate 18 11/04/2022 10:12 AM EDT Oxygen Saturation - - Inhaled Oxygen Concentration - - Weight 75.9 kg (167 lb 6.4 oz) 11/04/2022 10:12 AM EDT Height - - Body Mass Index 26.9 12/31/2021 1:42 PM EDT documented in this encounter Progress Notes * Scarlett Long PA-C - 11/04/2022 11:00 AM EDT HISTORY & PHYSICAL EXAMINATION - NEUROLOGY Name: Ike Mitchell Date: 11/03/2022 Time: 8:59 AM Chief Complaint Patient presents with Return Neuro SUBJECTIVE: Ike Mitchell is a 67 year old man who returns today for follow- up of seizures andcerebral palsy with chronic right hemiparesis. He was last seen 11/21/21. Phenobarbital and primidone levels were high. Instructed to decrease primidone to 250mg twice daily and phenobarbital 30mg twice daily. Levels stabilized. Continues on Keppra 750mg BID. Today states he feels well. No seizures, morning jerks or staring spells. No headaches or vision changes. States he is compliant with his medications. Living at [facility] in [facility]. Gets to appointments using a bus service. No longer working. Uses a cane. No recent falls. Allergies: Patient has no known allergies. 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 180 Capsule 3 Multivitamin Adult (Minerals) Oral Tablet 1 TABLET DAILY 90 Tablet 1 levETIRAcetam 750 MG Oral Tablet Take by mouth 1 Tablet in the morning AND 1 Tablet before bedtime. 180 Tablet 3 PHENobarbital 30 MG Oral Tablet Take 1 Tablet by mouth in the morning and 1 Tablet before bedtime. (32.4 mg). 180 Tablet 1 sulfaSALAzine 500 MG Oral Tablet [...] tablet in the evening 180 Tablet 3 No current facility-administered medications for this visit. Family History: Family History Problem Relation Age of Onset Lung Disorder Father COPD age 67 Heart Disorder Mother [place] dird age 50 No Past Hx Brother No Past Hx Brother No Past Hx Brother No Past Hx Brother No Past Hx Sister No Past Hx Sister SOCIAL HISTORY: Social History Tobacco Use Smoking status: Never Smokeless tobacco: Former Tobacco comments: chewed a few yrs ago Vaping Use Vaping Use: Never used Substance Use Topics Alcohol use: No Drug use: No REVIEW OF SYSTEMS: As above OBJECTIVE: Physical Examination: BP 146/70 | Pulse 72 | Temp 36.1 C (97 F) (Tympanic) | Resp 18 | Wt 75.9 kg (167 lb 6.4 oz) | BMI 26.90 kg/m | BSA 1.88 m General appearance: healthy, alert, no distress Physical Exam: Constitutional: Appearance normally developed,well nourished,well groomed Head and face: normocephalic,atraumatic Respiratory: normal effort,clear to auscultation Cardiovascular: normal heart sounds and regular rhythm NEUROLOGIC EXAMINATION: Mental Status Exam: alert,oriented to time, place, person Cranial Nerves: CN 2,3 - PERRLA CN 3, 4, 6 - Extra-ocular Movements Intact,no nystagmus CN 5 - Facial sensation intact and equal bilaterally CN 7 - no facial assymetry CN 8 - hearing grossly intact Gait/station: Ambulates with cane, +limp, decreased right arm swing, circumventing gait right foot Muscle exam: +right hemiparesis; +contractures right hand, unable to grasp Arm Right Left Leg Right Left Deltoid 5/5 5/5 Iliopsoas 4/5 5/5 Biceps 4/5 5/5 Quads 4/5 5/5 Triceps 4/5 5/5 Reflexes: Biceps BR Patellar Achilles Plantars Right 2+ 2+ 1 1 Flexor Left 2+ 2+ 1 1 Flexor Sensation: Intact light touch. Mid-luna level to temperature and vibration. LABORATORY: Results for orders placed or performed in visit on 07/07/22 LIPID PANEL WITH DIRECT LDL IF TG IS HIGH Result Value Ref Range Triglycerides 73 <=174 mg/dL Cholesterol 167 <200 mg/dL HDL Cholesterol 66 >39 mg/dL Non-HDL Cholesterol 101 <=159 mg/dL LDL Cholesterol 86 <=129 mg/dL Review of prior Studies: No recent imaging available. ASSESSMENT/PLAN: Ike Mitchell is a 67 year old man who returns today for follow- up of seizures and cerebral palsy with chronic right hemiparesis. He remains seizure free. No complaints. On Keppra 750mg BID, primidone 250mg twice daily and phenobarbital 30mg twice daily. Dosages were decreased due to high levels this time last year. Will schedule trough levels, and routine labs. Left a voicemail with his sister Beverley. Follow up in 6 months or sooner if needed. I spent a total of 40 minutes on the date of service in preparation, delivery, and documentation of the care provided to Ike Mitchell. Vibha Olivo MD available for direct consultation. Scarlett Long PA-C, Neurology [facility] [address] [facility] [place] [address] 11/04/22 11:01 AM documented in this encounter Nursing Notes * Laura Montana RN - 11/04/2022 10:17 AM EDT Patient identified by full name and date of . Chief Complaint Patient presents with Return Neuro Pt presents as a follow up. States he has been taking medications as ordered. No seizure activity, no increased weakness. Ambulates with a cane. documented in this encounter Plan of Treatment Upcoming Encounters Date Type Specialty Care Team Description 11/27/2022 Office Visit Podiatry Janeth Wu DPM [address] [facility] [place] [address] 01/01/2023 Office Visit Family Medicine Elise Keyur DIEGO MD [address] [facility] [place] [address] 04/03/2023 Office Visit Gastroenterology Kyle Jensen MD [address] [facility] [place] [address] 05/07/2023 Office Visit Neurology Scarlett Long PA-C [address] [place] [address] Scheduled Orders Name Type Priority Associated Diagnoses Orde r Schedule LEVETIRACETAM LEVEL Lab Routine Generalized convulsive epilepsy without intractable epilepsy (HCC) Expected: 11/05/2022, Expires: 11/05/2023 25-HYDROXY VITAMIN D Lab Routine Generalized convulsive epilepsy without intractable epilepsy (HCC) Expected: 11/05/2022, Expires: 11/05/2023 CBC Lab Routine Generalized convulsive epilepsy without intractable epilepsy (HCC) Ordered: 11/04/2022 PRIMIDONE AND PHENOBARBITAL Lab Routine Generalized convulsive epilepsy without intractable epilepsy (HCC) Expected: 11/05/2022, Expires: 11/05/2023 COMPREHENSIVE METABOLIC PANEL Lab Routine Generalized convulsive epilepsy without intractable epilepsy (HCC) Expected: 11/05/2022, Expires: 11/05/2023 Health Maintenance Due Date Last Done Comments Zoster Vaccines (1 of 2) 1973 Cologuard 1999 Fecal Occult Blood Test 1999 Sigmoidoscopy 1999 COVID-19 Vaccine (5 - Booster for Pfizer series) 01/29/2022 12/04/2021, 03/16/2021, 08/23/2020, Additional history exists Depression Screening, Annual for Pts 12 and Over 10/17/2022 10/17/2021 Influenza Vaccine (FLU shot) (#1) 2022 02/08/2021, 01/17/2021, 01/25/2020, Additional history exists Diabetes Screening 08/22/2024 08/22/2021, 1 , 04/18/2021, Additional history exists DTaP,Tdap,and Td Vaccines (3 - Td or Tdap) 08/17/2025 08/18/2015, 10/22/2011, 01/13/2004 Lipid Panel 07/08/2027 07/07/2022, 0205/2017, 07/16/2012, Additional history exists Colonoscopy 10/30/2029 10/31/2019, [...] this encounter Medical Devices Implanted Type Area Paper Inserter Device Identifier Shelf Expiration Date Model / Serial / Lot Lens Intraoc 22.5 - [id number] - [id number] Implanted:Qty: 1 on 11/10/2019 by Yao Salcido MD at OR [facility] Left: Eye [employer] 02/25/2024 [id number] / [id number] / [id number] Lens Intraoc 22.5 - [id number] - [id number] Implanted:Qty: 1 on 11/24/2019 by Yao Salcido MD at OR [facility] Right: Eye [employer] 03/26/2024 [id number] / [id number] / documented as of this encounter Visit Diagnoses Diagnosis Generalized convulsive epilepsy without intractable epilepsy (HCC)- Primary Generalized convulsive epilepsy without mention of intractable [...] the patient have Health Care Power of Entry Level Java Developer? No Code Status History Code Status Date Activated Date Inactivated Comments Full Code 07/04/2020 10:14 AM 07/04/2020 10:34 AM Thi s order reflects the patients wishes and were consensually agreed upon. Question Answer Comments Discussion of Advance Directives occurred with: Patient Does the patient have a Living Will? No Does the patient have Health Care Power of Entry Level Java Developer? No Care Teams Network Lead Relationship Specialty Start Date End Date Elise JOHNATHON, Keyur Doran MD [address] [place] [address] PCP - General 08/23/01 documented as of this encounter"
--- OUTSIDE RECORDS SUMMARY | 2023-03-25 02:49 | External Medical Summary | Summary of Care ---
Author Name Unknown Organization [facility] Address [address] [place] [address] Phone [phone] Care Team Providers Care Wireline Field Operator Name Role Phone Elise DIEGO MD, Antonio Doran Primary Care Provider [phone] Reason for Visit * Reason Comments Follow Up GERD, Crohns, follow up Encounter Details Date Type Department Care Team Description 09/26/2022 Office Visit Gastroenterology, [facility] [address] [facility] [place] [address] Kyle Jensen MD [address] [facility] [place] [address] Crohn's disease without complication, unspecified gastrointestinal tract location (HCC)* Allergies No known active allergiesdocumented as of this encounter (statuses as of 09/26/2022) Medications Medication Sig Dispensed Refills Start Date End Date Status Fish Oil 1000 MG Oral Capsule Take by mouth 1 Capsule in the morning AND 1 Capsule before bedtime. 180 Capsule 3 05/29/2021 Active Multivitamin Adult (Minerals) Oral Tablet 1 TABLET DAILY 90 Tablet 1 05/29/2021 Active Primidone 250 MG Oral Tablet (Mysoline)Indicat ions:Generalized convulsive epilepsy without intractable epilepsy (HCC) Take by mouth 2 Tablets in the morning AND 2 Tablets before bedtime. 360 Tablet 3 10/17/2021 Active Additional Information Patient taking differently:500 mg Oral BID(AM/PM),Patient is taking differently, Reported on 08/12/2022 levETIRAcetam 750 MG Oral TabletIndications :Generalized convulsive [...] BEFORE BEDTIME. 540 Tablet 11 09/26/2022 Active sulfaSALAzine 500 MG Oral Tablet (Azulfidine) TAKE 2 TABLETS BY MOUTH IN THE MORNING THEN 2 TABLETS AT NOON THEN 2 TABLETS BEFORE BEDTIME 540 Tablet 11 08/22/2021 3 Discontinue d(Refill) documented as of this encounter (statuses as of 09/26/2022) Active Problems Problem Noted Date Hemiplegia affecting [...] as of this encounter (statuses as of 09/26/2022) Resolved Problems Problem Noted Date Resolved Date CEREBRAL PALSY NOS 06/20/2022 CHR BLOOD LOSS ANEMIA 11/07/2019 documented as of this encounter (statuses as of 09/26/2022) Immunizations Name Administration Dates Next Due COVID-19 mRNA, LNP-s, No Pre serve, 2-Dose Series ([facility]) 12/04/2021,03/16/2021,08/23/2020,08/02 Pneumococcal Conjugate Vacc, 13 Valent (Prevnar) [...] Sign Reading Time Taken Comments Blood Pressure 154/74 09/26/2022 2:32 PM EDT Pulse 99 09/26/2022 2:32 PM EDT Temperature 36.4 C (97.5 F) 09/26/2022 2:32 PM ED T Respiratory Rate - - Oxygen Saturation 94% 09/26/2022 2:32 PM EDT Inhaled Oxygen Concentration - - Weight 78.2 kg (172 lb 8 oz) 09/26/2022 2:32 PM EDT Height - - Body Mass Index 27.72 12/31/2021 1:42 PM EDT documented in this encounter Progress Notes * Kyle Jensen MD - 09/26/2022 2:40 PM EDT Antonio Bolden III, MD Ref: ANTONIO BOLDEN III[[id number]] [address] [place] [address] (office) [phone] (fax) Dear Antonio Bolden III, MD History of Present Illness: I had the pleasure of seeing Mr. Ike Rodríguez in clinic for a diagnosis Crohn 's disease. He is [id number] old male who presented in 1997 with diarrhea and was found to have Crohn's ileocolitis. He subsequently had an ileocolectomy that same year.. He also had surgery for anal fissures. He has been maintained on Azulfadine and fish oil with resolution of his symptoms. His most recentcolonoscopywas [id number] patent and healthy right colon anastomosis surveillance biopsies were negative for dysplasiawithout signs of endoscopic or microscopic disease.He has three formed BM's per day with no abdominal pain, fever, joint pain, or weight loss. Continues to do well on monotherapy ASA product only. Not interested increasing therapy,has no symptoms including extraintestinal manifestations of GI disease, 1 stool daily none of which containblood, appetite and weight is stable. He continues to be in entire clinical remission without symptoms, no issues and doing well. Colonoscopy 2019 - The examined portion of the ileum was normal. - The entire examined colon is normal. Biopsied. - Internal hemorrhoids. - The examination was otherwise normal on direct and retroflexion views. A. Right colon, biopsy: Colonic mucosa with no significant histopathologic changes. B. Left colon, biopsy: Colonic mucosa with no significant histopathologic changes. Colonoscopy 2018 The examined portion of the ileum was normal. Biopsied. - Patent end-to-end colo-colonic anastomosis, characterized by healthy appearing mucosa. - Biopsies for surveillance were taken from the entire colon Colon, right, biopsies: No significant pathologic change No evidence of a colitis C. 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 180 Capsule 3 Multivitamin Adult (Minerals) Oral Tablet 1 TABLET DAILY 90 Tablet 1 Primidone 250 MG Oral Tablet (Mysoline) Take by mouth 2 Tablets in the morning AND 2 Tablets before bedtime. (Patient taking differently: Take 2 Tablets by mouth in the morning and 2 Tablets before bedtime. Patient is taking differently.) 360 Tablet 3 levETIRAcetam 750 MG Oral Tablet Take by mouth 1 Tablet in the morning AND 1 Tablet before bedtime. 180 Tablet 3 sulfaSALAzine 500 MG Oral Tablet (Azulfidine) TAKE 2 TABLETS BY MOUTH IN THE MORNING THEN 2 TABLETS AT NOON THEN 2 TABLETS BEFORE BEDTIME 540 Tablet 11 PHENobarbital 30 MG Oral Tablet Take 1 Tablet by mouth in the morning and 1 Tablet before bedtime. (32.4 mg). 180 Tablet 1 No current facility-administered medications for this visit. Past Medical History: Diagnosis Date Anemia due [...] performed by Meggan Mccormick MD at OR [facility] COLONOSCOPY W/ BIOPSY (RECTUM) 09/11/2006 mild inflammation COLONOSCOPY, DIAGNOSTIC (RECTUM) 11/15/2015 mild-mod inflammation/[facility] COLONOSCOPY, DIAGNOSTIC (RECTUM) 11/03/2017 normal bx/COLONOSCOPY FLEXIBLE PROXIMAL DIAGNOSTIC performed by Kyle Jensen MD at ENDOSCOPY [facility] COLONOSCOPY, DIAGNOSTIC (RECTUM) 10/31/2019 internal hemorrhoids/biopsies normal/COLONOSCOPY FLEXIBLE PROXIMAL DIAGNOSTIC performed by Kyle Jensen MD at ENDOSCOPY [facility] RELIEVE INNER EYE PRESSURE Left 11/10/2019 left GONIOTOMY performed by Yao Salcido MD at [facility] RELIEVE INNER EYE PRESSURE Right 11/24/2019 right GONIOTOMY performed by Yao Salcido MD at [facility] RELIEVE INNER EYE PRESSURE Bilateral REMOVE CATARACT, INSERT LENS PROSTH Left 11/10/2019 left EXTRACAPSULAR CATARACT REMOVAL WITH INTRAOCULAR LENS performed by Yao Salcido MD at OR [facility] REMOVE CATARACT, INSERT LENS PROSTH Right 11/24/2019 right EXTRACAPSULAR CATARACT REMOVAL WITH INTRAOCULAR LENS performed by Yao Salcido MD at OR [facility] TENDON TRANSFER WITH GRAFT, THUMB Social History Social History Narrative Not on file Family History Problem Relation Age of Onset Lung Disorder Father COPD age 67 Heart Disorder Mother CO dird age 50 No Past Hx Brother No Past Hx Brother No Past Hx Brother No Past Hx Brother No Past Hx Sister No Past Hx Sister Review of patient's allergies indicates: No Known Allergies Review of Systems: Constitutional ROS: No change in weight, No weakness, No fatigue and No fevers, sweats, or chills Eye ROS: No recent significant change in vision, No eye pain, redness, discharge, No diplopia, No h/o cataracts and No h/o glaucoma Pulmonary ROS: No cough, sputum, or hemoptysis, No wheezing, No shortness of breath and No recent change in breathing Cardiovascular ROS: No chest pain, No shortness of breath, No dyspnea on exertion, No orthopnea, Noparoxysmal nocturnal dyspnea, No edema, No palpitations and No syncope Gastrointestinal ROS: As per the HPI Musculoskeletal/Extremities ROS: No pain, redness or swelling on the joints Hematologic/Lymphatic ROS: No coagulation disorder, No anemia, No abnormal bleeding, No chills, No bruising, No HIV risk factors, No night sweats, No swollen nodes, No weight loss and No history of transfusion Skin/Integumentary ROS: No edema, No rash and No itching Neurologic ROS: Normal balance, No headaches, No seizures and No weakness Psychiatric ROS: No depression, No anxiety and No psychosis All other systems reviewed and negative OBJECTIVE: Physical Exam: BP 154/74 | Pulse 99 | Temp 36.4 C (97.5 F) | Wt 78.2 kg (172 lb 8 oz) | SpO2 94% | BMI 27.72 kg/m | BSA 1.91 m General: alert, healthy, no distress Head: Normocephalic Eye Exam: PERRLA, EOMI, Conjunctiva are pink and non-injected, sclera clear Ears: External ears normal Heart: regular rate & rhythm, no murmurs and no gallops Lungs: clear to auscultation Abdomen: abdomen soft, non-tender, normal bowel sounds and no masses or organomegaly Extremities: no edema, no clubbing, no cyanosis Neuro Exam: alert & oriented x 3 with fluent speech, no focal motor/sensory deficits Assessment: 67year old male presenting forfollow-up of longstanding ileocolonic Crohn 's with prior surgeryfor stenosis. Remarkably seems to be doing well on his monotherapy with an ASA medication. Does not appear to have any other issues at this time. His weight is stable on his appetite is good he does not to be clinically noted to be in a flare or under treated disease. He has documentation of endoscopicallyr emissivedisease Plan: Repeat [id number] CBC, CRP inflammatory markers, B12 folateall normal ContinueAzulfidine RTC 1 yr I sincerely thank you for the referral and allowing me to be involved with the gastrointestinal health of your patient. Please do not hesitate to contact me with any questions, concerns, errors, or omissions. Sincerely, Kyle Jensen MD Division of Gastroenterology [facility] This chart was completed in part utilizing [employer] Speech Voice Recognition Software. Grammatical errors, random word insertions, prounoun errors, and incomplete sentences are an occasional consequence of this system due to software limitations, ambient noise, and hardware issues. Any formal questions or concerns about the content, text, or information contained within the body of this dictation should be directly addressed to the provider for clarification. documented in this encounter Nursing Notes * Shazia Soliman LPN - 09/26/2022 2:33 PM EDT Patient identified by name and date of . Chief Complaint Patient presents with Follow Up GERD, Crohns, follow up documented in this encounter Plan of Treatment Upcoming Encounters Date Type Specialty Care Team Description 11/04/2022 Office Visit Neurology Scarlett Long PA-C [address] [facility] [place] [id number] 11/27/2022 Office Visit Podiatry Janeth Wu DPM [address] [place] [address] 01/01/2023 Office Visit Family Medicine Elise Antonio DIEGO MD [address] [facility], [place] [id number] 04/03/2023 Office Visit Gastroenterology Kyle Jensen MD [address] [place] [address] Health Maintenance Due Date Last Done Comments Zoster Vaccines (1 of 2) 1973 Cologuard 1999 Fecal Occult Blood Test 1999 Sigmoidoscopy 1999 COVID-19 Vaccine (5 - Booster for Pfizer series) 01/29/2022 12/04/2021, 03/16/2021, 08/23/2020, Additional history exists Depression Screening, Annual for Pts 12 and Over 10/17/2022 10/17/2021 Influenza Vaccine (FLU shot) (Season Ended) 2022 02/08/2021, 01/17/2021, 01/25/2020, Additional history exists [...] this encounter Medical Devices Implanted Type Area Occupational Psychologist Device Identifier Shelf Expiration Date Model / Serial / Lot Lens Intraoc 22.5 - [id number] - [id number] Implanted:Qty: 1 on 11/10/2019 by Yao Salcido MD at OR [facility] Left: Eye [employer] 02/25/2024 [id number] / [id number] / [id number] Lens Intraoc 22.5 - [id number] - [id number] Implanted:Qty: 1 on 11/24/2019 by Yao Salcido MD at OR [facility] Right: Eye [employer]OMB 03/26/2024 [id number] / [id number] / documented as of this encounter Visit Diagnoses Diagnosis Crohn's disease without complication, unspecified gastrointestinal tract location (HCC)- Primary documented in this encounter Advance Directives [...] the patient have Health Care Power of Market Risk Manager? No Code Status History Code Status Date Activated Date Inactivated Comments Full Code 07/04/2020 10:14 AM 07/04/2020 10:34 AM Thi s order reflects the patients wishes and were consensually agreed upon. Question Answer Comments Discussion of Advance Directives occurred with: Patient Does the patient have a Living Will? No Does the patient have Health Care Power of Market Risk Manager? No Care Teams Wireline Field Operator Relationship Specialty Start Date End Date Antonio Bolden III, MD [address] [place] [id number] PCP - General 08/23/01 documented as of this encounter"
--- OUTSIDE RECORDS SUMMARY | 2023-03-25 02:49 | External Medical Summary ---
Author Name Unknown Address Unknown Organization K09:[facility] [address] [place] [address] Laboratory Report Ordering Provider Test Date Status KAZ JOSEI 11/14/2022 08:09:41 Final Observation Date Value Abnormality Reference (Units ) Status BUN 11/14/2022 08:09:41 11 6-20 (mg/dL) Final Creatinine 11/14/2022 08:09:41 0.8 0.6-1.2 (mg/dL) Final Glomerular filtration rate/1.73 sq M.predicted [Volume Rate/Area] in Serum, Plasma or Blood by Creatinine-based formula (CKD-EPI) 11/14/2022 08:09:41 >90 >=60 (mL/min) Final eGFR is calculated based on the CKD-EPI 2020 equation SODIUM 11/14/2022 08:09:41 139 135-146 (m mol/L) Final Potassium 11/14/2022 08:09:41 5.1 3.5-5.1 (m mol/L) Final Cl 11/14/2022 08:09:41 102 98-107 (mm ol/L) Final CO2 11/14/2022 08:09:41 30 22-32 (mmo l/L) Final Anion gap 11/14/2022 08:09:41 7 7-15 (mmol /L) Final Glucose 11/14/2022 08:09:41 92 70-120 (mg /dL) Final Albumin 11/14/2022 08:09:41 4.6 3.8-5.0 (g /dL) Final AST (Aspartate aminotransferase) 11/14/2022 08:09:41 20 10-50 (U/L) Final Alk Phos 11/14/2022 08:09:41 111 35-130 (U/ L) Final Bilirubin, Total 11/14/2022 08:09:41 0.3 <=1 .2 (mg/dL) Final Calcium 11/14/2022 08:09:41 9.6 8.4-10.2 ( mg/dL) Final Protein 11/14/2022 08:09:41 7.6 6.0-8.3 (g /dL) Final ALT (Alanine aminotransferase) 11/14/2022 08:09:41 19 10-50 (U/L) Final Performing Location [facility] [address] [place] [address]
--- OUTSIDE RECORDS SUMMARY | 2023-03-25 02:49 | External Medical Summary ---
Author Name Unknown Address Unknown Organization : Laboratory Report Ordering Provider Test Date Status REAGAN JOSE 11/14/2022 08:09:41 Final Must be PRIOR to morning med ications Observation Date Value Abnormality Reference (Units ) Status Primidone, level 11/14/2022 08:09:41 11.2 5.0 -12.0 (mg/L) Final Phenobarbital level 11/14/2022 08:09:41 35.3 15.0-40.0 (mg/L) Final
Test Performed at:
[facility]
[address] [facility]
[place] [address]
Sukumar Amin M.D., Ph.D.,Director of Laboratories Performing Location
--- OUTSIDE RECORDS SUMMARY | 2023-03-25 02:49 | External Medical Summary | Summary of Care ---
Author Name Unknown Organization [facility] Address [address] [place] [address] Phone [phone] Care Team Providers Care Class C Driver Name Role Phone Elise DIEGO MD, Antonio Doran Primary Care Provider [phone] Reason for Visit * Reason Comments eRx-Medication Refill Encounter Details Date Type Department Care Team Description 11/22/2022 Refill Family Practice [facility] [place] [address] [facility] [place] [address] Antonio Bolden III, MD [address] [facility] [place] [address] Generalized convulsive epilepsy without intractable epilepsy (HCC) Allergies No known active allergiesdocumented as of this encounter (statuses as of 11/23/2022) Medications Medication Sig Dispensed Refills Start Date [...] BEFORE BEDTIME 180 Tablet 3 11/23/2022 Active levETIRAcetam 750 MG Oral TabletIndications :Generalized convulsive epilepsy without intractable epilepsy (HCC) Take by mouth 1 Tablet in the morning AND 1 Tablet before bedtime. 180 Tablet 3 10/17/2021 3 Discontinued documented as of this encounter (statuses as of 11/23/2022) Active Problems Problem Noted Date Hemiplegia affecting [...] as of this encounter (statuses as of 11/23/2022) Resolved Problems Problem Noted Date Resolved Date CEREBRAL PALSY NOS 06/20/2022 CHR BLOOD LOSS ANEMIA 11/07/2019 documented as of this encounter (statuses as of 11/23/2022) Immunizations Name Administration Dates Next Due COVID-19 mRNA, LNP-s, No Pre serve, 2-Dose Series (Pfizer) 12/04/2021,03/16/2021,08/23/2020,08/02 Pneumococcal Conjugate Vacc, 13 Valent (Prevnar) [...] encounter Miscellaneous Notes * Telephone Encounter - Antonio Bolden III, MD - 11/23/2022 7:34 AM EDTSigned Prescriptions: Disp Refills levETIRAcetam 750 MG Oral Tablet 180 Ta*3 Sig: TAKE 1 TABLET BY MOUTH EVERY DAY IN THE MORNING AND BEFORE BEDTIMEAuthorizing Provider: ANTONIO BOLDEN III * Telephone Encounter - Trang Holman LPN - 11/22/2022 9:58 AM EDT Pending Prescriptions: Disp Refills levETIRAcetam 750 MG Oral Tablet [Pharmacy*180 Ta*3 Sig: TAKE 1 TABLET BY MOUTH EVERY DAY IN THE MORNING AND BEFORE BEDTIME * Telephone Encounter - Trang Holman LPN - 11/22/2022 9:58 AM EDT Pending Prescriptions: Disp Refills levETIRAcetam 750 MG Oral Tablet [Pharmac*180 Ta*3 Sig: TAKE 1 TABLET BY MOUTH EVERY DAY IN THE MORNING AND BEFORE BEDTIME Last Visit: 08/12/2022 (in office), Visit date not found (telemedicine) Next Visit: 01/01/2023 Last date the medication was ordered: 10/17/2021 Patient Active Problem List Diagnosis Code GENERALIZED CONVULSIVE EPILEPSY; WITHOUT MENTION OF INTRACTABLE EPILEPSY G40.309 Mitral valve disorder I05.9 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 Adjustment disorder F43.20 Labs: Lab Results Component Value Date/Time CREATININE - [facility] 0.8 11/14/2022 08:09 AM CREATININE - [facility] 0.8 01/16/2020 02:58 PM Lab Results Component Value Date/Time POTASSIUM - [facility] 5.1 11/14/2022 08:09 AM POTASSIUM - [facility] 4.5 01/16/2020 02:58 PM Lab Results Component Value Date/Time TSH - [facility] 1.81 01/25/2020 11:48 AM Lab Results Component Value Date/Time LDL CHOLESTEROL (CALCULATED) - [facility] 86 07/07/2022 08:42 AM LDL CHOLESTEROL (CALCULATED) - [facility] 159 (H) 05/29/2017 08:47 AM LDL CHOLESTEROL (CALCULATED) - [facility] 116 07/16/2012 10:08 AM LDL CHOLESTEROL (DIRECT MEASURE) - [facility] NOT APPLICABLE 05/29/2017 08:47 AM LDL CHOLESTEROL (DIRECT MEASURE) - [facility] NOT APPLICABLE 07/16/2012 10:08 AM Lab Results Component Value Date/Time ALT - [facility] 19 11/14/2022 08:09 AM ALT - [facility] 28 01/16/2020 02:58 PM Hemoglobin AIC Results: Lab Results Component Value Date/Time HEMOGLOBIN A1C - [facility] 3.8 01/24/2002 12:34 PM * Telephone Encounter - Mireya Peña - 11/22/2022 1:06 AM EDTPending Prescriptions: Disp Refills levETIRAcetam 750 MG Oral Tablet [Pharmacy*180 Ta*3 Sig: TAKE 1TABLET BY MOUTH EVERY DAY IN THE MORNING AND BEFORE BEDTIME documented in this encounter Plan of Treatment Upcoming Encounters Date Type Specialty Care Team Description 11/27/2022 Office Visit Podiatry Janeth Wu, DPStoney [address] [facility] [place] [address] 01/01/2023 Office Visit Family Medicine Antonio Bolden III, MD [address] [facility] [place] [address] 04/03/2023 Office Visit Gastroenterology Kyle Jensen MD [address] [place] [address] 05/07/2023 Office Visit Neurology Scarlett Long PA-C [address] [facility] [place] [address] Health Maintenance Due Date Last Done Comments [...] this encounter Medical Devices Implanted Type Area Imaging Analyst Device Identifier Shelf Expiration Date Model / Serial / Lot Lens Intraoc 22.5 - [id number] - [id number] Implanted:Qty: 1 on 11/10/2019 by Yao Salcido MD at [facility] Left: Eye [employer] 02/25/2024 [id number] / [id number] / [id number] Lens Intraoc 22.5 - [id number] - [id number] Implanted:Qty: 1 on 11/24/2019 by Yao Salcido MD at [facility] Right: Eye BA[employer] LOMB 03/26/2024 [id number] / [id number] / documented as of this encounter Visit Diagnoses Diagnosis Generalized convulsive epilepsy without intractable epilepsy (HCC) [...] the patient have Health Care Power of Coil Taper? No Code Status History Code Status Date Activated Date Inactivated Comments Full Code 07/04/2020 10:14 AM 07/04/2020 10:34 AM Thi s order reflects the patients wishes and were consensually agreed upon. Question Answer Comments Discussion of Advance Directives occurred with: Patient Does the patient have a Living Will? No Does the patient have Health Care Power of Coil Taper? No Care Teams Class C Driver Relationship Specialty Start Date End Date Antonio Bolden III, MD [address] [facility] [place] [address] PCP - General 08/23/01 documented as of this encounter
--- OUTSIDE RECORDS SUMMARY | 2023-03-25 02:49 | External Medical Summary ---
Author Name Unknown Address Unknown Organization K01:[facility] [place] [facility] [address] [place] [address] Laboratory Report Ordering Provider Test Date Status REAGAN JOSE 11/14/2022 08:09:41 Final Deficient: <20 ng/mL
Ins ufficient: 20-29 ng/mL
Recommended/Optimum:30-50 ng/mL

Vitamin D intoxication is rare. If suspicious of Vitamin D toxicity, evaluation of serum Calcium and PTH is recommended. Observation Date Value Abnormality Reference (Units ) Status 25-OH Vitamin D total 11/14/2022 08:09:41 34 >19 (ng/mL) Final Performing Location [facility] [place] [facility] [address] [place] [address]
--- OUTSIDE RECORDS SUMMARY | 2023-03-25 04:23 | External Medical Summary | Summary of Care ---
Author Name Unknown Organization [facility] Address [address] [place] [address] Phone [phone] Care Team Providers Care Hand Ii Blocker Name Role Phone Elise DIEGO MD, Keyur Doran Primary Care Provider [phone] Reason for Visit * Reason Comments Acute The pt stated he has had diarrhea since Thursday03/21/2023. The pt also stated he is having abnormal urinary symptoms. The pt stated that fecal matter came out of his penis as well. Encounter Details Date Type Department Care Team (Latest Contact Info) Description 03/24/2023 3:40 PM EST Office Visit General Internal Medicine [facility] [address] [place] [address] Cat Lantigua MD [address] [place] [address] Dysuria*; Diarrhea, unspecified type; Crohn's colitis, without complications (HCC); Colovesical fistula Allergies No known active allergiesdocumented as of this encounter (statuses as of 03/24/2023) Medications Medication Sig Dispensed Refills Start Date [...] as of this encounter (statuses as of 03/24/2023) Active Problems Problem Noted Date Diagnosed Date [...] as of this encounter (statuses as of 03/24/2023) Resolved Problems Problem Noted Date Diagnosed Date Resolved Date CEREBRAL PALSY NOS 3 CHR BLOOD LOSS ANEMIA 2019 documented as of this encounter (statuses as of 03/24/2023) Immunizations Name Administration Dates Next Due COVID-19 mRNA, LNP-s, No Pre serve, 2-Dose Series (AppLovin) 12/04/2021,03/16/2021,08/23/2020,08/02 Pneumococcal Conjugate Vacc, 13 Valent (Prevnar) [...] Sign Reading Time Taken Comments Blood Pressure 124/64 03/24/2023 3:40 PM EST Pulse 90 03/24/2023 3:40 PM EST Temperature 36.8 C (98.2 F) 03/24/2023 3:40 PM ES T Respiratory Rate - - Oxygen Saturation 94% 03/24/2023 3:40 PM EST Inhaled Oxygen Concentration - - Weight 74.9 kg (165 lb 1.6 oz) 03/24/2023 3:40 P M EST Height - - Body Mass Index 26.54 01/01/2023 9:32 AM EDT documented in this encounter Progress Notes * Cat Lantigua MD - 03/24/2023 3:52 PM EST SUBJECTIVE: Ike Mitchell is a 68 year old male. Chief Complaint Patient presents with Acute The pt stated he has had diarrhea since Thursday03/21/2023. The pt also stated he is having abnormalurinary symptoms. The pt stated that fecal matter came out of his penis as well. HPI: Patient with a problem list as below presents today accompanied by his brother. States on Thursday03/21/2023 he developed diarrhea, stools were liquid, brownish in color, no blood or black stoolsabout 3 to 5 times a day. Also developed dysuria with burning at the end of urination, 2 weeks ago he had noticed some stool in the urine. Denies any fever or chills. No nausea or vomiting. No abdominal pain or back pain. Does not drink much water but drinks a flavored drink. History of Crohn's disease, last colonoscopy 10/2019 was normal except for internal hemorrhoids. Brother gave him a Pepto-Bismol today. 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 (32.4 mg). 180 Tablet 3 No current facility-administered medications for this visit. Review of patient's allergies indicates: No Known Allergies OBJECTIVE: BP 124/64 | Pulse 90 | Temp 36.8 C (98.2 F) | Wt 74.9 kg (165 lb 1.6 oz) | SpO2 94% | BMI 26.54kg/m | BSA 1.87 m PHYSICAL EXAM: General: alert, healthy, no distress, well developed OP Mm moist, tongue slightly coated Heart: regular rhythm and rate,No murmurs. Lungs: lungs clear to auscultation Extremities: no edema Abdomen: Soft, non-tender, normal bowel sounds, no masses or organomegaly RT hemiplegia UE with contracture ASSESSMENT/PLAN: Dysuria (Primary) - URINALYSIS, POINT OF CARE (ENTER/EDIT) - CULTURE, URINE, QUANTITATIVE; Future; Expected date: 03/24/2023 - MICROSCOPIC EXAM, URINE; Future; Expected date: 03/24/2023 Diarrhea, unspecified type - CULTURE, URINE, QUANTITATIVE; Future; Expected date: 03/24/2023 - MICROSCOPIC EXAM, URINE; Future; Expected date: 03/24/2023 Crohn's colitis, without complications (HCC) - CULTURE, URINE, QUANTITATIVE; Future; Expected date: 03/24/2023 - MICROSCOPIC EXAM, URINE; Future; Expected date: 03/24/2023 Colovesical fistula Looked at urine---raymond feces in urine, will cancel urine c/s Results for orders placed or performed in visit on 03/24/23 URINALYSIS, POINT OF CARE (ENTER/EDIT) Result Value Ref Range Color, Urine Brown Yellow or Light Yellow Clarity, Urine Cloudy Clear Glucose, Urine 100 Negative mg/dL Bilirubin, Urine Large Negative Ketone, Urine 15 Negative mg/dL Specific [place], Urine 1.020 1.003 - 1.030 Blood, Urine Large Negative pH, Urine 7.0 5.0 - 7.5 units Protein, Urine >=300 Negative mg/dL Urobilinogen, Urine 4.0 0.2 - 1.0 mg/dL Nitrite, Urine Positive Negative Esterase, Urine Large Negative Discussed with patient need for further evaluation and treatment and he is agreeable to go to ER. Nurse will notify ER Follow-up: Return if symptoms worsen or fail to improve. | Check-out note: To ER (This note was completed using the dictation program Fluency Direct. As such, there may be misspellings, word substitutions, or other variations that should not change the essence of the clinical content of this encounter note. If there is need for further clarification, please direct questions to the provider listed above.) Patient and / caregiver verbalize understanding of above instructions and agrees with plan of care. Cat Lantigua MD 03/24/2023 documented in this encounter Nursing Notes * Marshall Szymanski LPN - 03/24/2023 3:40 PM EST Chief Complaint Patient presents with Acute The pt stated he has had diarrhea since Thursday03/21/2023. The pt also stated he is having abnormalurinary symptoms. The pt stated that fecal matter came out of his penis as well. documented in this encounter Plan of Treatment Upcoming Encounters Date Type Department Care Team (Late st Contact Info) Description 04/03/2023 10:20 AM EST Office Visit Gastroenterology, [facility] [address] [facility] [place] [address] Kyle Jensen MD 132 [facility] [place] [address] 05/07/2023 9:00 AM EST Office [facility] [address] Scarlett Long PA-C [address] [place] [address] 06/10/2023 10:00 AM EST Office Visit Podiatry [facility] [address] [place] [address] Janeth Wu DPM [address] [facility] [place] [address] 07/10/2023 9:40 AM EDT Office Visit Family [facility] [address] [place] [address] Keyur Olivares III, MD [address] [facility] [place] [address] Pending Results Name Type Priority Associated Diagnoses Date /Time MICROSCOPIC EXAM, URINE Lab Routine Dysuria Diarrhea, unspecified type Crohn's colitis, without complications (HCC) 03/24/2023 4:28 PM EST Scheduled Orders Name Type Priority Associated Diagnoses Orde r Schedule MICROSCOPIC EXAM, URINE Lab Routine Dysuria Diarrhea, unspecified type Crohn's colitis, without complications (HCC) Expected: 03/24/2023 (Approximate), Expires: 03/23/2024 Health Maintenance Due Date Last Done Comments [...] this encounter Medical Devices Implanted Type Area Customer Service Professional Device Identifier Shelf Expiration Date Model / Serial / Lot Lens Intraoc 22.5 - [id number] - [id number] Implanted:Qty: 1 on 11/10/2019 by Yao Salcido MD at OR [facility] Left: Eye [employer] 02/25/2024 [id number] / [id number] / [id number] Lens Intraoc 22.5 - [id number] - [id number] Implanted:Qty: 1 on 11/24/2019 by Yao Salcido MD at OR [facility] Right: Eye [employer] LOMB 03/26/2024 [id number] / [id number] / documented as of this encounter Procedures Procedure Name Priority Date/Time Associated Diagnosis Comments URINALYSIS, POINT OF CARE (ENTER/EDIT) Routine 03/24/2023 Dysuria documented in this encounter Results * (ABNORMAL) URINALYSIS, POINT OF CARE (ENTER/EDIT) (03/24/2023) Color, Urine Brown Yellow or Light Yellow Clarity, Urine Cloudy Clear Glucose, Urine 100 Negative mg/dL Bilirubin, Urine Large Negative Ketone, Urine 15 Negative mg/dL Specific [place], Urine 1.020 1.003 - 1.030 Blood, Urine Large Negative pH, Urine 7.0 5.0 - 7.5 units Protein, Urine >=300 Negative mg/dL Urobilinogen, Urine 4.0 0.2 - 1.0 mg/dL Nitrite, Urine Positive Negative Esterase, Urine Large Negative Urine 03/24/2023 Cat Lantigua MD LAB POINT OF CARE TE ST ENTER/EDIT ORDERABLES documented in this encounter Visit Diagnoses Diagnosis Dysuria- Primary Diarrhea, unspecified type Crohn's colitis, without complications (HCC) Colovesical fistula Intestinovesical fistula documented in this encounter Advance Directives Latest Code Status on File Code Status Date Activated Date Inactivated Comments Full Code 07/04/2020 10:34 AM 07/04/2020 3:04 PM This order reflects the patients wishes and were consensually agreed upon. Question Answer Comments Discussion of Advance Directives occurred with: Patient Does the patient have a Living Will? No Does the patient have Health Care Power of Medical Office Scheduler? No Code Status History Code Status Date Activated Date Inactivated Comments Full Code 07/04/2020 10:14 AM 07/04/2020 10:34 AM Thi s order reflects the patients wishes and were consensually agreed upon. Question Answer Comments Discussion of Advance Directives occurred with: Patient Does the patient have a Living Will? No Does the patient have Health Care Power of Medical Office Scheduler? No Care Teams Hand Ii Blocker Relationship Specialty Start Date End Date Keyur Olivares III, MD [address] [facility] [place] [address] PCP - General 08/23/01 documented as of this encounter"
--- OUTSIDE RECORDS SUMMARY | 2023-03-25 04:23 | External Medical Summary | Summary of Care ---
Author Name Unknown Organization [facility] Address [address] [place] [address] Phone [phone] Care Team Providers Care Theatre Instructor Name Role Phone Elise DIEGO MD, Keyur Doran Primary Care Provider [phone] Reason for Visit * Reason Comments Acute The pt stated he has had diarrhea since Thursday03/21/2023. The pt also stated he is having abnormal urinary symptoms. The pt stated that fecal matter came out of his penis as well. 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.90 ADVANCE DIRECTIVE INFORMATION Gastroesophageal reflux disease without esophagitis K21.9 Thyroid lump E07.9 Primary open-angle glaucoma, bilateral, mild stage H40.1131 Spastic hemiplegic cerebral palsy (HCC) G80.2 Hemiplegia affecting right dominant side ([facility]) G81.91 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 [...] EVERY DAY IN THE MORNING AND BEFORE [id number] Tablet 3 PHENobarbital 30 MG Oral Tablet [...] Negative Ketone, Urine 15 Negative mg/dL Specific [place], Urine 1.020 1.003 - 1.030 Blood, Urine [...] 04/03/2023 10:20 AM EST Office Visit Gastroenterology, [facility] [address] [facility] [place] [address] Kyle Jensen MD 132 [facility] [place] [address] 05/07/2023 9:00 AM EST Office Visit [facility] [address] [facility] [address] Scarlett Long PA-C [address] [place] [address] 06/10/2023 10:00 AM EST Office Visit Podiatry [facility] [address] [place] [address] Janeth Wu DPM 400 [facility] [place] [address] 07/10/2023 9:40 AM EDT Office Visit Family Practice [facility] [address] [place] [address] Keyur Olivares III, MD [address] [facility] [place] [address] Pending Results Name Type Priority Associated Diagnoses [...] this encounter Medical Devices Implanted Type Area Hotel Reservation Agent Device Identifier Shelf Expiration Date Model / Serial / Lot Lens Intraoc 22.5 - [id number] - [id number] Implanted:Qty: 1 on 11/10/2019 by Yao Salcido MD at OR [facility] Left: Eye [employer] 02/25/2024 [id number] / [id number] / [id number] Lens Intraoc 22.5 - [id number] - [id number] Implanted:Qty: 1 on 11/24/2019 by Yao Salcido MD at OR [facility] Right: Eye [employer]OMB 03/26/2024 [id number] / [id number] / documented as of this encounter Procedures Procedure Name Priority Date/Time Associated Diagnosis Comments URINALYSIS, POINT OF CARE (ENTER/EDIT) Routine 03/24/2023 Dysuria documented in this encounter Results * (ABNORMAL) URINALYSIS, POINT OF CARE (ENTER/EDIT) (03/24/2023) Color, Urine Brown Yellow or Light Yellow Clarity, Urine Cloudy Clear Glucose, Urine 100 Negative mg/dL Bilirubin, Urine Large Negative Ketone, Urine 15 Negative mg/dL Specific [place], Urine 1.020 1.003 - 1.030 Blood, Urine [...] the patient have Health Care Power of Body Service Team Member? No Code Status History Code Status Date Activated Date Inactivated Comments Full Code 07/04/2020 10:14 AM 07/04/2020 10:34 AM Thi s order reflects the patients wishes and were consensually agreed upon. Question Answer Comments Discussion of Advance Directives occurred with: Patient Does the patient have a Living Will? No Does the patient have Health Care Power of Body Service Team Member? No Care Teams Theatre Instructor Relationship Specialty Start Date End Date Keyur Olivares III, MD 200 [facility] [place] [address] PCP - General 08/23/01 documented as of this encounter"
[2023-03-25] MEDS: ENOXAPARIN INJ 40 MG/0.4 ML SYR SQ SCH (05:03)
[2023-03-25] MEDS: PIPERACILLIN/TAZOBACTAM 4.5 GM in DEXTROSE 5% MINI-B 100 ML IV SCH ×3 (05:03→21:00)
[2023-03-25 07:52] LABS: Basophils # (auto) 0.04 K/uL (0.00-0.20); Basophils % (auto) 0.3 %; Eosinophils # (auto) 0.02 K/uL (0.00-0.50); Eosinophils % (auto) 0.2 %; Hemoglobin 11.3 g/dl (14.0-18.0); Immature Granulocytes # (auto) 0.06 K/uL (0.01-0.20); Immature Granulocytes % (auto) 0.5 %; Lymphocytes # (auto) 0.45 K/uL (1.20-3.40); Lymphocytes % (auto) 3.8 %; Mean Corpuscular Hemoglobin 31.2 pg (25.0-34.0); Mean Corpuscular Hgb Conc 31.4 g/dL (32.0-36.0); Mean Corpuscular Volume 99.4 fL (80.0-100.0); Monocytes # (auto) 0.97 K/uL (0.11-0.59); Monocytes % (auto) 8.2 %; Neutrophils # (auto) 10.26 K/uL (1.40-6.50); Platelet Count 207 K/uL (130-400); RDW Coefficient of Variation 13.5 % (11.5-14.5); RDW Standard Deviation 49.2 fL (36.4-46.3); Red Blood Count 3.62 M/uL (4.70-6.10)
[2023-03-25 08:13] LABS: BUN Creatinine Ratio 21.3 (10-20); Calcium 8.1 mg/dl (8.6-10.3); Creatinine Clr Calc Pharmacy 86.9 ml/min; Est GFR (African American) 108.5 ml/min; Est GFR (Non-African American) 93.6 ml/min; Potassium 3.5 mmol/L (3.5-5.1)
[2023-03-25] MEDS: PRIMIDONE 250 MG TAB PO SCH ×2 (08:33→21:00)
[2023-03-25] MEDS: sulfaSALAzine 500 MG TABEC PO SCH ×3 (08:34→20:59)
[2023-03-25] MEDS: levETIRAcetam 250 MG TAB PO SCH ×2 (08:34→21:00)
[2023-03-25] MEDS: PHENobarbitaL 30 MG TAB PO SCH ×2 (08:38→21:06)
--- NOTE | 2023-03-25 13:15 | Urology Progress Note ---
Date of Service March 25, 2023 Assessment & Plan (1) Emphysematous cystitis: Plan 68yo/M who presented with dysuria and reported stool in the urine. CT abdomen pelvis on arrival demonstrated severe wall thickening of the urinary bladder with multiple locules of air, consistent with severe UTI/emphysematous cystitis. Patient admitted to medicine service with emphysematous cystitis and concern of colovesical fistula. - Afebrile and hemodynamically stable. - Labs reviewed-WBC 11.80, hemoglobin 9.3, creatinine 0.75. - Urine culture final with more than three types of organisms present, all high counts. On Zosyn. - Calvo intact, draining derrick colored urine. Continue to monitor. - No acute intervention warranted. - Maintain the Calvo catheter for maximum drainage and bladder decompression. - Continue supportive care and antibiotic therapy. - Urology will follow - Pt reassessed this afternoon. - Nursing noted the catheter was not draining well and attempted to irrigate and noted return of what appeared to be stool. - Upon arrival, the catheter was draining minimal brown-colored drainage. I upsized the catheter to a 20 German calvo catheter at bedside using sterile technique. Patient tolerated well. - The catheter was then flushed without difficulty with return of what appeared to be fecal material. - The catheter was then flushed by Dr. Rose at bedside until we had clear urine returned. - Suspect the patient may have a colovesical fistula in the setting of history of Crohns disease. Plan- - Continue antibiotics. - Maintain catheter and continue to monitor - Ok to hand irrigate catheter as needed. - Will likely need work-up with general/colorectal surgery for management of the colovesical fistula. - May need to consider further imaging pending course. - If catheter continues to obstruct with fecal material/stool, may also need to consider transfer to tertiary center. - Urology will follow. Plan reviewed with Dr. Rose, on-call urologist. See attending note for further details. Admission and Anticipated Discharge Date Admission Date: March 25, 2023 Subjective Pt examined at bedside this AM. Awake, resting in bed on arrival. No acute distress. Calvo intact, draining derrick-colored urine. Patient reports some discomfort around catheter insertion site. No fevers. Review of Systems Constitutional: as per Subjective / HPI Genitourinary: + as per Subjective / HPI Physical Exam Constitutional: no acute distress Respiratory: no respiratory distress and no labored breathing Neurologic: awake Psychiatric: Orientation: alert and cooperative Genitourinary: Calvo intact Results & Data Vital Signs (Past 12 Hours) Vital Signs Temp Pulse Pulse Resp BP Pulse Ox O2 Del Method 03/25/23 09:15 75 17 136/83 95 Room Air 03/25/23 07:56 37.0 C 81 18 124/65 91 Room Air 03/25/23 01:40 37.2 C 84 18 155/73 H 96 Room Air 03/25/23 01:15 90 18 95 Room Air PG Care Time/CCT Total # of Minutes Spent Total Time Spent with Patient: Total time spent is greater than 50% in coordination of care (as documented) at patient's floor/unit and/or counseling patient: Coding Level of Care Code 88609 SUB INP/OBS CARE 2/35MIN Diagnoses Emphysematous cystitis N30.80
[2023-03-25 14:57] LABS: Adenovirus F 40/41 PCR Not Detected (NotDetected); Astrovirus PCR Not Detected (NotDetected); Campylobacter PCR Not Detected (NotDetected); Cryptosporidium PCR Not Detected (NotDetected); Cyclospora cayetanensis PCR Not Detected (NotDetected); Entamoeba histolytica PCR Not Detected (NotDetected); Enteroaggregative E.coli(EAEC) Not Detected (NotDetected); Enteropathogenic E.coli (EPEC) Not Detected (NotDetected); Enterotoxigenic E.coli (ETEC) Not Detected (NotDetected); Giardia lamblia PCR Not Detected (NotDetected); Plesiomonas shigelloides PCR Not Detected (NotDetected); Rotavirus A PCR Not Detected (NotDetected); Salmonella PCR Not Detected (NotDetected); Sapovirus PCR Not Detected (NotDetected); Shiga-like Toxin E.coli (STEC) Not Detected (NotDetected); Shigella/Enteroinvasive E.coli Not Detected (NotDetected); Vibrio cholerae PCR Not Detected (NotDetected); Vibrio species PCR Not Detected (NotDetected); Yersinia enterocolitica PCR Not Detected (NotDetected)
[2023-03-25 16:22] LABS: Norovirus GI/GII PCR DETECTED (NotDetected)
--- NOTE | 2023-03-25 17:48 | Hospitalist Progress Note ---
Date of Service March 25, 2023 Assessment & Plan (1) Emphysematous cystitis: Plan: 68-year-old male with past med hx significant for colloid thyroid nodule, mitral valve disorder, GERD, generalized convulsive epilepsy, primary open-angle glaucoma bilateral, spastic hemiplegic cerebral palsy, Crohn's disease, adjustment disorder who lives with his brother was brought in because of urinary symptoms. He was having burning micturition for last 2 weeks and also noted some stool in the urine. Saw PCP and urinalysis showed some stool and was sent in here. CT scan done in the ER showing emphysematous cystitis. He is being managed for the following: Emphysematous cystitis Concern for Stool in the urine History of Crohn's Complicated UTI Admitting UA suggestive of UTI, admitting CTAP suggestive of emphysematous cystitis. No perirectal or perianal abscess noted. Continue with Zosyn 03/25, follow-up admitting urine culture. Nursing noted ? Feculent material when irrigating the clogged urinary catheter 03/25 Urology evaluated, upsized the catheter, then flushed with return of what appeared to be stool. Was flushed until clear urine return. Suspect patient has colovesical fistula in the setting of history of Crohn's di sease. Discussed with urology, will continue with antibiotic and maintain catheter. Will follow further recommendations from urology. Norovirus gastroenteritis: Pt w/ diarrhea, norovirus positive, c diff neg. c/w symptomatic mx, encourage po intake. pedialyte solution by bedside. History of epilepsy: On phenobarbital and primidone and Keppra, continue Crohn's: On sulfasalazine, continue History of mitral valve disorder History of adjustment disorder History of cerebral palsy DVT prophylaxis: Lovenox Disposition: Medical floor Full code Updated pt's sister Beverley, answered all her questions. she voiced understanding. Admission and Anticipated Discharge Date Admission Date: March 25, 2023 Subjective Patient was seen and examined at bedside. Patient was lying in bed, on room air, NAD, reports having multiple liquidy stool yesterday/overnight/today. Patient denies abdominal pain, denies fever/chills/sore throat/cough/chest pain. Patient denies fevers. RN communicated for Pedialyte solution at bedside. Physical Exam Physical Exam: GENERAL: Alert and oriented x3. NAD, on RA. HEENT: No pallor, no icterus. Pupils equal, round and reactive to light. Oral mucosa moist. NECK: No JVD, no neck masses. HEART: S1 and S2 heard. Regular rate and rhythm. No murmur, no gallop. RESPIRATORY SYSTEM: Normal AP diameter. No accessory muscle use. No wheezing, no crackles. ABDOMEN: Soft, bowel sounds present, nontender, no distention. CENTRAL NERVOUS SYSTEM: No facial droop. Speech is clear. Obeys simple commands. Moves extremities. EXTREMITIES: No edema, no erythema seen. Rt hand contracture noted - chronic per pt. Results & Data Results & Data Vital Signs (Past 12 Hours) Vital Signs Temp Pulse Resp BP Pulse Ox O2 Del Method 03/25/23 15:49 36.5 C 77 17 156/87 H 97 Room Air 03/25/23 09:15 75 17 136/83 95 Room Air 03/25/23 07:56 37.0 C 81 18 124/65 91 Room Air
[2023-03-26] MEDS: PIPERACILLIN/TAZOBACTAM 4.5 GM in DEXTROSE 5% MINI-B 100 ML IV SCH ×3 (05:39→19:59)
[2023-03-26] MEDS: ENOXAPARIN INJ 40 MG/0.4 ML SYR SQ SCH (05:39)
[2023-03-26] MEDS: levETIRAcetam 250 MG TAB PO SCH ×2 (07:30→20:03)
[2023-03-26] MEDS: sulfaSALAzine 500 MG TABEC PO SCH ×3 (07:31→20:04)
[2023-03-26] MEDS: PRIMIDONE 250 MG TAB PO SCH ×2 (07:31→20:03)
[2023-03-26 07:37] LABS: Hematocrit (blood only) 31.7 % (42.0-52.0); Hemoglobin 10.2 g/dl (14.0-18.0); Mean Corpuscular Hemoglobin 31.1 pg (25.0-34.0); Mean Corpuscular Hgb Conc 32.2 g/dL (32.0-36.0); Mean Corpuscular Volume 96.6 fL (80.0-100.0); Mean Platelet Volume 10.9 fL (9.4-12.4); Platelet Count 195 K/uL (130-400); RDW Coefficient of Variation 13.4 % (11.5-14.5); RDW Standard Deviation 47.9 fL (36.4-46.3); Red Blood Count 3.28 M/uL (4.70-6.10); White Blood Count 9.69 K/ul (4.8-10.8)
[2023-03-26 07:57] LABS: BUN Creatinine Ratio 13.7 (10-20); Calcium 7.9 mg/dl (8.6-10.3); Creatinine Clr Calc Pharmacy 89.3 ml/min; Est GFR (African American) 109.7 ml/min; Est GFR (Non-African American) 94.6 ml/min; Magnesium 1.9 mg/dl (1.7-2.4); Phosphorus 2.4 mg/dl (2.5-4.9); Potassium 4.1 mmol/L (3.5-5.1)
[2023-03-26] MEDS: PHENobarbitaL 30 MG TAB PO SCH ×2 (08:40→20:06)
[2023-03-26] MEDS: POT PHOSPHATE MONOBASIC W/ SOD TAB PO SCH ×3 (12:01→20:03)
--- NOTE | 2023-03-26 15:11 | Urology Progress Note ---
<Statement entered by Chirag Loya MD - 03/26/23 16:13> I have discussed Mr. Mitchell's case with GAUTAM Pisano and agree with the above documentation. For definitive repair of his enterovesical fistula he will require colorectal surgery which will have to be at another facility. This can be done as an outpatient as long as he is still able to empty his bladder. If he develops recurrent urinary retention from stool in the bladder, he could be a candidate for nephrostomy tube placement in outside facility. If he remains stable, he may be able to go home on prophylactic antibiotics and manage fistula as an outpatient. -Chirag Loya MD. Date of Service March 26, 2023 Assessment & Plan (1) Emphysematous cystitis: Plan 68yo/M who presented with dysuria and reported stool in the urine. CT abdomen pelvis on arrival demonstrated severe wall thickening of the urinary bladder with multiple locules of air, consistent with severe UTI/emphysematous cystitis. Patient admitted to medicine service with emphysematous cystitis and concern of colovesical fistula. - Afebrile and hemodynamically stable. - Labs reviewed-WBC 9.69, hemoglobin 10.2, creatinine 0.73. - Urine culture final with more than three types of organisms present, all high counts. On Zosyn. - Calvo intact, draining clear yellow urine with a few flecks of brown debris in tubing. Continue to monitor. Ok to hand irrigate as needed. - No acute intervention warranted. - Maintain the Calvo catheter for maximum drainage and bladder decompression. - Continue supportive care and antibiotic therapy. - Given his hx of Crohns, will need referral to colorectal surgery on discharge for management of the colovesical fistula. - However, if patient decompensates or his catheter continues to obstruct with fecal material/stool, may also need to consider transfer to tertiary center for nephrostomy tubes and evaluation by colorectal surgery. - Urology will follow Plan of care reviewed with Dr. Loya Admission and Anticipated Discharge Date Admission Date: March 25, 2023 Subjective Pt examined at bedside. Awake, resting in bed on arrival. No acute distress. Family at bedside. Calvo intact, draining clear yellow urine with a few flecks of brown colored debris. He denies any pain or discomfort at present. Denies f/c/n/v. Review of Systems Constitutional: as per Subjective / HPI Genitourinary: + as per Subjective / HPI Physical Exam Constitutional: no acute distress Respiratory: no respiratory distress and no labored breathing Neurologic: awake Psychiatric: Orientation: alert and cooperative Genitourinary: calvo intact Results & Data Vital Signs (Past 12 Hours) Vital Signs Temp Pulse Resp BP Pulse Ox O2 Del Method 03/26/23 14:53 37.1 C 80 14 134/71 93 Room Air 03/26/23 08:15 36.9 C 83 18 153/73 H 93 Room Air PG Care Time/CCT Total # of Minutes Spent Total Time Spent with Patient: Total time spent is greater than 50% in coordination of care (as documented) at patient's floor/unit and/or counseling patient: Coding Level of Care Code 20024 SUB INP/OBS CARE 2/35MIN Diagnoses Emphysematous cystitis N30.80
--- NOTE | 2023-03-26 16:26 | Hospitalist Progress Note ---
Date of Service March 26, 2023 Assessment & Plan (1) Emphysematous cystitis: Plan: 68-year-old male with past med hx significant for colloid thyroid nodule, mitral valve disorder, GERD, generalized convulsive epilepsy, primary open-angle glaucoma bilateral, spastic hemiplegic cerebral palsy, Crohn's disease, adjustment disorder who lives with his brother was brought in because of urinary symptoms. He was having burning micturition for last 2 weeks and also noted some stool in the urine. Saw PCP and urinalysis showed some stool and was sent in here. CT scan done in the ER showing emphysematous cystitis. He is being managed for the following: Emphysematous cystitis Concern for Stool in the urine History of Crohn's Complicated UTI Admitting UA suggestive of UTI, admitting CTAP suggestive of emphysematous cystitis. No perirectal or perianal abscess noted. Continue with Zosyn 03/25, follow-up admitting urine culture. Nursing noted ? Feculent material when irrigating the clogged urinary catheter 03/25 Urology evaluated, upsized the catheter, then flushed with return of what appeared to be stool. Was flushed until clear urine return. 03/25. 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 Urine collection w/ fewer debris today, more clear. Discussed with urology, will continue with antibiotic and maintain catheter. Colorectal surgeon follow-up on discharge. Norovirus gastroenteritis: Pt w/ diarrhea, norovirus positive, c diff neg. c/w symptomatic mx, encourage po intake. pedialyte solution by bedside. Diarrhea improving. History of epilepsy: On phenobarbital and primidone and Keppra, continue Crohn's: On sulfasalazine, continue History of mitral valve disorder History of adjustment disorder History of cerebral palsy DVT prophylaxis: Lovenox Disposition: Medical floor Full code Admission and Anticipated Discharge Date Admission Date: March 25, 2023 Subjective Patient was seen and examined at bedside. Patient was lying in bed, on room air, NAD, reports improvement in his diarrhea. Patient denies abdominal pain, denies fever/chills/sore throat/cough/chest pain. Patient denies fevers. Patient's family at bedside, updated. Physical Exam Physical Exam: GENERAL: Alert and oriented x3. NAD, on RA. HEENT: No pallor, no icterus. Pupils equal, round and reactive to light. Oral mucosa moist. NECK: No JVD, no neck masses. HEART: S1 and S2 heard. Regular rate and rhythm. No murmur, no gallop. RESPIRATORY SYSTEM: Normal AP diameter. No accessory muscle use. No wheezing, no crackles. ABDOMEN: Soft, bowel sounds present, nontender, no distention. CENTRAL NERVOUS SYSTEM: No facial droop. Speech is clear. Obeys simple commands. Moves extremities. EXTREMITIES: No edema, no erythema seen. Rt hand contracture noted - chronic per pt. Urinary catheter in situ, yellow urine with some brown flecks of debris noted in the collection. Clear than yesterday. Results & Data Results & Data Vital Signs (Past 12 Hours) Vital Signs Temp Pulse Resp BP Pulse Ox O2 Del Method 03/26/23 14:53 37.1 C 80 14 134/71 93 Room Air 03/26/23 08:15 36.9 C 83 18 153/73 H 93 Room Air
[2023-03-27] MEDS: PIPERACILLIN/TAZOBACTAM 4.5 GM in DEXTROSE 5% MINI-B 100 ML IV SCH ×2 (03:21→12:42)
[2023-03-27] MEDS ORDERED: KETOROLAC TROMETHAMINE 15 MG/ML VIAL IV ONE (04:16)
[2023-03-27] MEDS ORDERED: SODIUM CHLORIDE 0.9% 1,000 ML IV ONE (04:26)
[2023-03-27] MEDS ORDERED: OPTIRAY 320 500ml IV ONE (04:55)
[2023-03-27] MEDS: ENOXAPARIN INJ 40 MG/0.4 ML SYR SQ SCH (05:20)
[2023-03-27] MEDS ORDERED: LIDOCAINE 2% JELLY 5 ML TUBE EXT ONE ×2 (06:25→06:37)
--- NOTE | 2023-03-27 07:02 | CT Scan Report ---
CT SCAN OF THE ABDOMEN AND PELVIS WITH IV CONTRAST CLINICAL HISTORY: Generalized abdominal pain. COMPARISON STUDY: Abdominal CT dated 03/24/2023. Pelvic CT dated 03/30/2021. TECHNIQUE: Following the IV administration of 90 cc of Optiray 320, CT scan of the abdomen and pelvi s is performed from the lung bases to the proximal femora. Images are reviewed in the axial, sagittal , and coronal planes. IV contrast was administered without complication. A dose lowering technique wa s utilized adhering to the principles of ALARA. CT DOSE: 1205.19 mGy.cm FINDINGS: Lung bases: The heart is enlarged and without pericardial effusion. Pleural calcifications are noted at both lung bases. The lung bases are clear noting bibasilar scarring/atelectasis. There is a small hiatal hernia. Liver: The contrast-enhanced liver is normal in size, contour, and attenuation. There is no intrahepa tic biliary ductal dilatation. The hepatic veins and portal veins are patent. Scattered subcentimeter pelvic densities likely represent cysts but are too small for definitive characterization. Gallbladder: Unremarkable. Spleen: Normal in size and attenuation. Pancreas: Unremarkable. Adrenal glands: A 1.1 cm left adrenal adenoma is unchanged. The right adrenal gland is normal in appe arance. Kidneys: The contrast enhanced kidneys are normal in size and without hydronephrosis. The kidneys enh ance symmetrically. A 1.1 cm cyst is seen in the left kidney. Additional tiny subcentimeter cortical hypodensities also likely represent cysts but are too small for definitive characterization. Abdominal vasculature: The abdominal aorta is normal in course and caliber noting mild to moderate at herosclerotic calcification. Bowel: Moderate fecal retention is noted throughout the colon. There is no bowel obstruction. There a re small duodenal diverticula. The appendix is well-visualized and normal. Peritoneum: There is no intraperitoneal free air or abdominal ascites. There is a small fat-containin g umbilical hernia. Lymphadenopathy: None. Pelvic viscera: Evaluation of the pelvis is degraded by streak artifact from a right hip arthroplasty . The prostate gland is enlarged and heterogeneous. Multiloculated fluid collections are seen within the prostate gland. A loculation in the left lobe on image #323 measures 2.9 x 1.9 cm. A loculation s een centrally within the gland on image #316 and measures 3.0 x 2.2 cm, and the loculation in the rig ht lobe at the apex on image number 3:30 measures 1.8 x 1.4 cm. The bladder is partially decompressed around a Segal catheter. The wall is heterogeneously thickened with mucosal hyperemia and there is s ignificant surrounding inflammation and trace fluid. An air-fluid level within the bladder lumen is n onspecific and may be related to instrumentation. There is a fat-containing right inguinal hernia. Skeletal structures: The skeletal structures are osteopenic. There is mild to moderate lumbosacral sp ondylosis. No lytic or blastic lesions are seen. A right hip arthroplasty is in place. There is a mil d chronic compression deformity of T12. IMPRESSION: 1. There is evidence of a severe cystitis/prostatitis. Correlate with clinical findings and urinalysi s. 2. There are multiloculated fluid collections identified within the prostate gland, highly suspicious for prostatic abscess. 3. Additional findings as above. ACT 112: Negative or not required by law. Electronically signed by: Manjit Ramos M.D. 03/27/2023 7:00 AM
[2023-03-27 08:11] LABS: Hematocrit (blood only) 32.5 % (42.0-52.0); Hemoglobin 10.5 g/dl (14.0-18.0); Mean Corpuscular Hemoglobin 30.8 pg (25.0-34.0); Mean Corpuscular Hgb Conc 32.3 g/dL (32.0-36.0); Mean Corpuscular Volume 95.3 fL (80.0-100.0); Mean Platelet Volume 10.8 fL (9.4-12.4); Platelet Count 208 K/uL (130-400); RDW Coefficient of Variation 13.2 % (11.5-14.5); RDW Standard Deviation 46.6 fL (36.4-46.3); Red Blood Count 3.41 M/uL (4.70-6.10); White Blood Count 7.61 K/ul (4.8-10.8)
[2023-03-27 08:21] LABS: BUN Creatinine Ratio 13.9 (10-20); Calcium 7.9 mg/dl (8.6-10.3); Creatinine Clr Calc Pharmacy 82.5 ml/min; Est GFR (African American) 106.2 ml/min; Est GFR (Non-African American) 91.6 ml/min; Magnesium 1.9 mg/dl (1.7-2.4); Phosphorus 3.7 mg/dl (2.5-4.9); Potassium 3.6 mmol/L (3.5-5.1)
[2023-03-27] MEDS: POT PHOSPHATE MONOBASIC W/ SOD TAB PO SCH (09:01)
[2023-03-27] MEDS: levETIRAcetam 250 MG TAB PO SCH (09:01)
[2023-03-27] MEDS: sulfaSALAzine 500 MG TABEC PO SCH ×2 (09:01→14:19)
[2023-03-27] MEDS: PRIMIDONE 250 MG TAB PO SCH (09:01)
[2023-03-27] MEDS: PHENobarbitaL 30 MG TAB PO SCH (09:07)
--- NOTE | 2023-03-27 09:12 | Urology Progress Note ---
Date of Service March 27, 2023 Assessment & Plan (1) Emphysematous cystitis: Plan 68yo/M who presented with dysuria and reported stool in the urine. CT abdomen pelvis on arrival demonstrated severe wall thickening of the urinary bladder with multiple locules of air, consistent with severe UTI/emphysematous cystitis. Patient admitted to medicine service with emphysematous cystitis and concern of colovesical fistula. - Afebrile and hemodynamically stable. - Labs reviewed-WBC 7.61, hemoglobin 10.5, creatinine 0.79. - Urine culture final with more than three types of organisms present, all high counts. On Zosyn. - Calvo intact, draining urine mixed with stool. Continue to monitor. Okay to hand irrigate as needed. - Pt developed recurrent urinary retention from stool in the bladder overnight requiring catheter replacement and irrigation. - A repeat CTAP was obtained showing cystitis/prostatitis and multiloculated fluid collections identified within the prostate gland, highly suspicious for prostatic abscess. - Given his hx of Crohns and that he continues to obstruct with fecal material/stool, our recommendations is for transfer to tertiary center for possible nephrostomy tube placement and evaluation by colorectal surgery. - We could consider possible procedure to unroof the prostate abscess however he has remained stable and this would not address the colovesical fistula issue. - Maintain the Calvo catheter for maximum drainage and bladder decompression. - Continue supportive care and antibiotic therapy. - Discussed with hospital team. - Discussed with family (brother). - Urology will follow. Plan of care reviewed with Dr. Rose Admission and Anticipated Discharge Date Admission Date: March 25, 2023 Supervising Physician Co-Signing Physician Notes Discussed patient with ANSELMO. Agree with plan. Reviewed new CT scan, concern for possible prostatic abscess. Emphysematous cystitis has improved. Patient continues to obstruct catheter with what is likely fecal material. Agree with transfer to tertiary center as he may require bowel diversion, which our general surgeons would prefer be done at a larger facility given his history of Crohn's. He may also require urinary diversion with neph tubes as an alternative. Could potentially have IR place a drain in his prostate as I worry that a transurethral unroofing may push a large amount of saline into his bowels based on his suspected fistula. A CT scan of the pelvis from 2020 did raise the concernf or a fistula at that ti me. Subjective Pt examined at bedside. Awake, resting in bed on arrival. No acute distress. Family at bedside. Calvo catheter became clogged early this morning with stool per nursing. The catheter was upsized to a 24 Greek Calvo catheter and irrigated. Calvo currently draining urine mixed with stool. He denies any pain or discomfort at present. Denies fevers, chills, nausea, vomiting. CT abdomen pelvis 1. There is evidence of a severe cystitis/prostatitis. Correlate with clinical findings and urinalysis. 2. There are multiloculated fluid collections identified within the prostate gland, highly suspicious for prostatic abscess. Review of Systems Constitutional: as per Subjective / HPI Genitourinary: + as per Subjective / HPI Physical Exam Constitutional: no acute distress Respiratory: no respiratory distress and no labored breathing Gastrointestinal (Abdomen): Percussion/Palpation: abdomen soft; abdomen nontender Neurologic: awake Psychiatric: Orientation: alert and cooperative Genitourinary: calvo intact Results & Data Vital Signs (Past 12 Hours) Vital Signs Temp Pulse Resp BP BP Pulse Ox O2 Del Method 03/27/23 07:21 36.8 C 66 16 137/73 94 Room Air 03/27/23 04:09 36.4 C L 80 18 118/79 94 Room Air PG Care Time/CCT Total # of Minutes Spent Total Time Spent with Patient: Total time spent is greater than 50% in coordination of care (as documented) at patient's floor/unit and/or counseling patient: Coding Level of Care Code 26306 SUB INP/OBS CARE 2/35MIN Diagnoses Emphysematous cystitis N30.80
--- NOTE | 2023-03-27 15:54 | Hospitalist Progress Note ---
Date of Service March 27, 2023 Assessment & Plan (1) Emphysematous cystitis: Plan: 68-year-old male with past med hx significant for colloid thyroid nodule, mitral valve disorder, GERD, generalized convulsive epilepsy, primary open-angle glaucoma bilateral, spastic hemiplegic cerebral palsy, Crohn's disease, adjustment disorder who lives with his brother was brought in because of urinary symptoms. He was having burning micturition for last 2 weeks and also noted some stool in the urine. Saw PCP and urinalysis showed some stool and was sent in here. CT scan done in the ER showing emphysematous cystitis. He is being managed for the following: Emphysematous cystitis Concern for Stool in the urine History of Crohn's Complicated UTI Admitting UA suggestive of UTI, admitting CTAP suggestive of emphysematous cystitis. No perirectal or perianal abscess noted. 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 On Zosyn 03/25, follow-up admitting urine culture. Nursing noted ? Feculent material when irrigating the clogged urinary catheter 03/25 Urology evaluated, upsized the catheter, then flushed with return of what appeared to be stool. Was flushed until clear urine return. 03/25. Calvo clogged again 03/27 w/ urine w/ brown debris on irrigation per RN. CTAP repeated s/o prostatitis and abscess. D/w uro, recommends tranfer. transfer process initiated, accepted at [facility], paperwork done. Pt needs ? b/l nephrostomy tube placement(IR) and colorectal Sx eval . Will chanage zosyn to [facility] 03/27. Norovirus gastroenteritis: Pt w/ diarrhea, norovirus positive, c diff neg. c/w symptomatic mx, encourage po intake. pedialyte solution by bedside. Diarrhea improving. History of epilepsy: On phenobarbital and primidone and Keppra, continue Crohn's: On sulfasalazine, continue History of mitral valve disorder History of adjustment disorder History of cerebral palsy DVT prophylaxis: Lovenox Disposition: Accepted at [facility], awaiting bed availability. Full code Admission and Anticipated Discharge Date Admission Date: March 25, 2023 Subjective Patient was seen and examined at bedside. Patient was lying in bed, on room air, NAD, reports improvement in his diarrhea. Reports lower abd pain; CTAP was repeated overnight for abd pain which was suspicious of prostatic abscess. Pt again w/ increasing brown debris (stool) in the urine collection after clogged calvo cath today. Patient denies fever/chills/sore throat/cough/chest pain. Physical Exam Physical Exam: GENERAL: Alert and oriented x3. NAD, on RA. HEENT: No pallor, no icterus. Pupils equal, round and reactive to light. Oral mucosa moist. NECK: No JVD, no neck masses. HEART: S1 and S2 heard. Regular rate and rhythm. No murmur, no gallop. RESPIRATORY SYSTEM: Normal AP diameter. No accessory muscle use. No wheezing, no crackles. ABDOMEN: Soft, bowel sounds present, nontender, no distention. CENTRAL NERVOUS SYSTEM: No facial droop. Speech is clear. Obeys simple commands. Moves extremities. EXTREMITIES: No edema, no erythema seen. Rt hand contracture noted - chronic per pt. Urinary catheter in situ, urine with some brown flecks of debris noted in the collection. Results & Data Results & Data Vital Signs (Past 12 Hours) Vital Signs Temp Pulse Resp BP BP Pulse Ox O2 Del Method 03/27/23 14:59 36.8 C 72 16 159/75 H 93 Room Air 03/27/23 09:25 Room Air 03/27/23 07:21 36.8 C 66 16 137/73 94 Room Air 03/27/23 04:09 36.4 C L 80 18 118/79 94 Room Air
--- NOTE | 2023-03-27 15:59 | Discharge Summary ---
Date of Service March 27, 2023 Admission HPI Per Admitting Provider 68-year-old male with past med history significant for colloid thyroid nodule, mitral valve disorder, GERD, generalized convulsive epilepsy, primary open-angle glaucoma bilateral, spastic hemiplegic cerebral palsy, Crohn's disease, adjustment disorder who lives with his brother was brought in because of urinary symptoms. He was having burning micturition for last 2 weeks and also noted some stool in the urine. Saw PCP and urinalysis showed some stool and was sent in here. Currently resting comfortably and hemodynamic stable. Denies any fevers. Denies abdominal pain. Currently denies any diarrhea. No nausea vomiting. No chest pains. No shortness of breath. No cough. No headache. No runny nose or sore throat. States ambulates with a cane. Past medical history. As mentioned above Past surgical history. Colonoscopy. Left goniotomy. Right goniotomy. Cataract surgeries. Social history. Lives with his brother. No smoking. No alcohol use. No drug use. Family history. Mother had OK at age 50. Father had COPD at age of 67 Admission Exam Per Admitting Provider General-Not in distress. Head- atraumatic Eyes- PERRL. ENT- oropharynx clear Neck- supple, no JVD,. Lungs- clear to auscultation no wheezing or crackles. Heart- regular rhythm; no murmur, no gallop. Abdomen- normal bowel sounds, soft, nontender, no distension. Extremities- no pretibial edema, no erythema seen. Neuro- alert, oriented PERRL, no facial palsy; no dysarthria Skin- warm & dry Principal Diagnosis Colovesical fistula Prostatitis/abscess Complicated UTI Norovirus gastroenteritis History of Crohn's disease Discharge Exam GENERAL: Alert and oriented x3. NAD, on RA. HEENT: No pallor, no icterus. Pupils equal, round and reactive to light. Oral mucosa moist. NECK: No JVD, no neck masses. HEART: S1 and S2 heard. Regular rate and rhythm. No murmur, no gallop. RESPIRATORY SYSTEM: Normal AP diameter. No accessory muscle use. No wheezing, no crackles. ABDOMEN: Soft, bowel sounds present, nontender, no distention. CENTRAL NERVOUS SYSTEM: No facial droop. Speech is clear. Obeys simple commands. Moves extremities. EXTREMITIES: No edema, no erythema seen. Rt hand contracture noted - chronic per pt. Urinary catheter in situ, urine with some brown flecks of debris noted in the collection. Discharge Data Allergies Allergy/AdvReac Type Severity Reaction Status Date / Time No Known Allergies Allergy Unknown Verified 03/24/23 21:25 Consultations 03/24/23 21:46 Consult Urology Stat 03/24/23 22:09 ED Decision to Admit Stat Ordered Studies 03/24/23 17:53 CT abd pelvis IV con only Stat 03/27/23 04:26 CT Abd and Pelvis [CT abd pelvis IV con only] Stat Hospital Course (1) Emphysematous cystitis: 68-year-old male with past med hx significant for colloid thyroid nodule, mitral valve disorder, GERD, generalized convulsive epilepsy, primary open-angle glaucoma bilateral, spastic hemiplegic cerebral palsy, Crohn's disease, adjustment disorder who lives with his brother was brought in because of urinary symptoms. He was having burning micturition for last 2 weeks and also noted some stool in the urine. Saw PCP and urinalysis showed some stool and was sent in here. CT scan done in the ER showing emphysematous cystitis. He is being managed for the following: Emphysematous cystitis Concern for Stool in the urine History of Crohn's Complicated UTI Admitting UA suggestive of UTI, admitting CTAP suggestive of emphysematous cystitis. No perirectal or perianal abscess noted. 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 On Zosyn 03/25, follow-up admitting urine culture. Nursing noted ? Feculent material when irrigating the clogged urinary catheter 03/25 Urology evaluated, upsized the catheter, then flushed with return of what appeared to be stool. Was flushed until clear urine return. 03/25. Segal clogged again 03/27 w/ urine w/ brown debris on irrigation per RN. CTAP repeated s/o prostatitis and abscess. D/w uro, recommends tranfer. transfer process initiated, accepted at [place], paperwork done. Pt needs ? b/l nephrostomy tube placement(IR) and colorectal Sx eval . Will chanage zosyn to [facility] 03/27. Norovirus gastroenteritis: Pt w/ diarrhea, norovirus positive, c diff neg. c/w symptomatic mx, encourage po intake. pedialyte solution by bedside. Diarrhea improving. History of epilepsy: On phenobarbital and primidone and Keppra, continue Crohn's: On sulfasalazine, continue History of mitral valve disorder History of adjustment disorder History of cerebral palsy DVT prophylaxis: Lovenox Disposition: Accepted at [facility], awaiting bed availability. Full code Home Health Attestation I certify that this patient is under my care and that I, or a physicians faculty research assistant working with me, had a face to-face encounter that meets the home health [id number] encounter requirements with this patient. The encounter with the patient was in whole, or in part, for the following medical condition, which is the primary reason for home health care (list medical condition): I certify that, based on my findings, the following services are medically necessary home health services: My clinical findings support the need for the above services because: Further, I certify that my clinical findings support that this patient is homebound (i.e. absences from home require considerable and taxing effort and are for medical reasons or mormonism services or infrequently or of short duration when for other reasons) because: Certification for Home Health Services: Based on the above findings, I certify that this patient is confined to the home and needs intermittent penitentiary care, physical therapy and/or speech therapy or continues to need occupational therapy. The patient is under my care, and I have initiated the establishment of the plan of care. This patient will be followed by a physician who will periodically review the plan of care. Total Time Total Time Spent Total Time Spent (In Minutes): 65 Discharge Plan Discharge Items Patient Disposition: Transfer Acute Care Hospital Reason For Visit: UTI Discharge Diagnosis: Colovesical fistula Prostatitis/abscess Complicated UTI Norovirus gastroenteritis History of Crohn's disease Activity: As commented below Activity Comment: per tertiary care recommendation Non-emergency contact: Primary Care Provider Call non-emergency contact if: you have any medication questions Follow-up/Referrals: Keyur Olivares MD [Primary Care Provider] - Diet: Nothing by Mouth Addtl Attending Provider Instructions: Your prior to arrival Home medication will be continued as it is on discharge med rec and your current inpatient medications are copied and pasted here for the sake of comparison. Current Inpatient Medications Acetaminophen (Acetaminophen 325 Mg Tab) 650 mg PO Q4H PRN PRN Reason: pain/fever Stop: 04/24/23 02:18 Last Admin: 03/25/23 06:28 Dose: 650 mg Enoxaparin Sodium (Enoxaparin Inj 40 Mg/0.4 Ml Syr) 40 mg SQ Q24H [facility] Stop: 04/24/23 05:59 Last Admin: 03/27/23 05:20 Dose: 40 mg Piperacillin Sod/Tazobactam (Sod 4.5 gm/ Dextrose) 100 mls @ 25 mls/hr IV Q8H [facility]; Protocol Stop: 04/04/23 03:59 Last Admin: 03/27/23 12:42 Dose: 25 mls/hr Sodium Chloride (Nss) 1,000 mls @ 75 mls/hr IV .[id number] ONE Stop: 03/27/23 17:45 Last Admin: 03/27/23 05:18 Dose: 75 mls/hr Levetiracetam (Levetiracetam 250 Mg Tab) 750 mg PO BID [facility] Stop: 04/24/23 08:59 Last Admin: 03/27/23 09:01 Dose: 750 mg Phenobarbital (Phenobarbital 30 Mg Tab) 30 mg PO BID [facility] Stop: 04/24/23 08:59 Last Admin: 03/27/23 09:07 Dose: 30 mg Polyethylene Glycol (Polyethylene (Miralax) 17 Gm Pack) 17 gm PO DAILY PRN PRN Reason: Constipation Stop: 04/24/23 02:18 Primidone (Primidone 250 Mg Tab) 250 mg PO BID [facility] Stop: 04/24/23 08:59 Last Admin: 03/27/23 09:01 Dose: 250 mg Sulfasalazine (Sulfasalazine 500 Mg Tabec) 1,000 mg PO TID [facility] Stop: 04/24/23 08:59 Last Admin: 03/27/23 14:19 Dose: Not Given Pending Studies at Discharge: Yes Stand-Alone Forms: My [facility] Skilled Items Patient informed of condition?: Yes DNR: No Discharge Level of Care: Other Communicable Disease: No Discharge Prognosis: Other Lines: Peripheral IV Urinary Catheter: Yes Medications and DC Order Prescriptions: Continued vitamin E 670 mg (1,000 unit) Capsule 670 mg PO DAILY phenobarbital 30 mg tablet 30 mg PO BID omega [id number]-fish oil [Fish Oil] 1,000 mg (120 mg-180 mg) Capsule 1 cap PO BID sulfasalazine 500 mg tablet,delayed release (DR/EC) 1,000 mg PO TID primidone 250 mg tablet 250 mg PO BID levetiracetam 750 mg tablet 750 mg PO BID Admission Data Admit Date/Time: 03/25/23 00:31 Attending Provider: Nixon Sim Admit Provider: Howard Cespedes Primary Care Provider: Keyur Olivares Other Providers: Tony Bauer; Howard Cespedes
[2023-03-27] MEDS ORDERED: levoFLOXacin/D5W 750 MG/150 ML BAG IV SCH (16:00)
[2023-03-27] MEDS ORDERED: SODIUM CHLORIDE 0.9% 1,000 ML IV SCH (18:00)
== END 2023-03-27 19:23 | disposition short-term general hospital (02) | DRG 386 ==
LOC: ED 17:10 → 3W 03-25 00:31